=== PATIENT | female | born 1975 | race Two or more races ===

== ENCOUNTER → 2020-05-07 09:35 | Outpatient (BNVA) | payer OTHER, SELFPAY | PROVIDERS: PCP Internal Medicine; Referring Provider Internal Medicine; Visit Provider Internal Medicine Endocrinology, Diabetes & Metabolism | DX: E11.65 Type 2 diabetes mellitus with hyperglycemia (principal); I10 Essential (primary) hypertension; E78.5 Hyperlipidemia, unspecified; E66.01 Morbid (severe) obesity due to excess calories; E55.9 Vitamin D deficiency, unspecified; Z79.4 Long term (current) use of insulin; Z68.41 Body mass index [BMI] 40.0-44.9, adult | CPT/HCPCS: 82947; 99214 ==

== ENCOUNTER → 2020-07-30 13:17 | Outpatient (BNVA) | payer OTHER, SELFPAY | PROVIDERS: PCP Internal Medicine; Visit Provider Surgery Vascular Surgery | DX: I83.12 Varicose veins of left lower extremity with inflammation (principal); E11.65 Type 2 diabetes mellitus with hyperglycemia; I10 Essential (primary) hypertension; E78.5 Hyperlipidemia, unspecified; E66.01 Morbid (severe) obesity due to excess calories; Z68.41 Body mass index [BMI] 40.0-44.9, adult; Z79.4 Long term (current) use of insulin | CPT/HCPCS: 99202 ==

== ENCOUNTER 2020-09-09 12:32 | Outpatient (REF) | payer OTHER, SELFPAY ==
--- NOTE | ~2020-09-09 | US_ITS ---
EXAMINATION: RIGHT and LEFT LOWER EXTREMITY VENOUS ULTRASOUND (Reflux Exam) CLINICAL INDICATION: leg pain and varicose veins. COMPARISON: None. TECHNIQUE: Color flow triplex imaging and compression Doppler was performed to evaluate both the deep and the superficial systems bilaterally. To evaluate the superficial system, the examination was performed in the upright position. Color-flow Doppler ultrasound and compression ultrasound were utilized. In addition, maneuvers were utilized to demonstrate reflux. FINDINGS: 1. DEEP VENOUS ULTRASOUND OF THE RIGHT LOWER EXTREMITY: Respiratory variation, normal compression and augmented flow are noted in the right common femoral vein as well as the right popliteal vein and there is no evidence of deep venous thrombosis at these locations. There is no evidence of reflux in the deep system in either the common femoral vein or the popliteal vein. There is no evidence of a Alexandre's cyst. 2. SUPERFICIAL ULTRASOUND WITH DOPPLER OF RIGHT LOWER EXTREMITY: The right great saphenous vein at the saphenofemoral junction measures 10 mm, at the mid thigh 5 mm, kfmxy-fsh-bkym 3 mm, txzii-[id number]-[id number] 4 mm, at mid calf 2 mm and at the ankle measures 4 mm. There is no reflux demonstrated in the right great saphenous vein. The right small saphenous vein measures 2-3 mm. There is a 1.1 seconds reflux in the lesser saphenous vein at the saphenofemoral popliteal junction. There is a b2b sales professional in the right calf that measures 3 mm and demonstrates 2.2 seconds reflux. There are 2 additional perforators in the right calf that measure 2 mm and do not demonstrate reflux. There are varicosities in the thigh measuring 3 and 6 mm and in the proximal calf measuring 3 mm that do not demonstrate reflux. 3. DEEP VENOUS ULTRASOUND OF THE LEFT LOWER EXTREMITY: Respiratory variation, normal compression and augmented flow are noted in the left common femoral vein as well as the left popliteal vein and there is no evidence of deep venous thrombosis at these locations. There is no evidence of reflux in the deep system in either the common femoral vein or the popliteal vein. . There is no evidence of a Alexandre's cyst. 4. SUPERFICIAL ULTRASOUND WITH DOPPLER OF LEFT LOWER EXTREMITY: Left great saphenous vein at the saphenofemoral junction measures 8 mm, at the mid thigh 4 mm, ngzjt-ira-ntpj 3 mm, lwrjp-mcc-rvao 3 mm, at mid calf 2 mm and at the ankle measures 2 mm. There is no reflux demonstrated in the left great saphenous vein. There is a lateral accessory greater saphenous vein that measures 4 mm and does not demonstrate reflux. The left small saphenous vein measures 1-3 mm and shows no reflux. There are perforators that measure 4 mm in the mid thigh and 3 and 2 mm in the proximal and mid calf that do not demonstrate reflux. There are varicosities in the thigh that measure 3 and 4 mm and do not demonstrate reflux. US/US venous duplex LE BI IMPRESSION: 1. No evidence of reflux or thrombus in the common femoral veins or popliteal veins bilaterally. 2. No greater saphenous vein reflux. Right lesser saphenous vein reflux at the saphenofemoral popliteal junction. Reflux in a b2b sales professional in the right proximal calf.
== END 2020-09-09 12:33 | disposition home or self-care (01) ==
LOC: HO.US 12:32
PROVIDERS: PCP Internal Medicine; Visit Provider Surgery Vascular Surgery
DX: I83.12 Varicose veins of left lower extremity with inflammation (principal); I83.893 Varicose veins of bilateral lower extremities with other complications
CPT/HCPCS: 93970

== ENCOUNTER → 2020-09-26 13:05 | Outpatient (BNVA) | payer OTHER, SELFPAY | PROVIDERS: PCP Internal Medicine; Visit Provider Surgery Vascular Surgery | DX: I83.12 Varicose veins of left lower extremity with inflammation (principal); I89.0 Lymphedema, not elsewhere classified | CPT/HCPCS: 99212 ==

== ENCOUNTER 2021-02-12 09:06 | Outpatient (REF) | payer OTHER, SELFPAY ==
[2021-02-12 09:36] LABS: MANUAL DIFF FLAG NO
[2021-02-12 09:40] LABS: Basophils Absolute Auto 0.1 X10*3/uL (0.0-0.2); Basophils Percent Auto 0.8 % (0-2); Eosinophils Absolute Auto 0.1 X10*3/uL (0.0-0.4); Eosinophils Percent Auto 1.2 % (0-4); Hematocrit 39.8 % (37-47); Hemoglobin 13.2 g/dl (12.0-16.0); Imm Gran Abs Auto 0.04 X10*3/uL (0.00-0.03); Imm Gran Pct Auto 0.5 % (0.0-0.4); Lymphocytes Absolute Auto 2.8 X10*3/uL (1.2-4.9); Lymphocytes Percent Auto 31.7 % (20-40); Mean Corpuscular HGB Conc 33.2 g/dl (31.0-35.0); Mean Corpuscular Hemoglobin 29.2 pg (27.0-33.0); Mean Corpuscular Volume 88.1 fL (80-98); Mean Platelet Volume 10.9 fL (9.4-12.3); Monocytes Absolute Auto 0.5 X10*3/uL (0.1-1.2); Monocytes Percent Auto 5.9 % (2-11); Neutrophils Absolute Auto 5.3 X10*3/uL (2.0-8.3); Neutrophils Percent Auto 59.9 % (45-73); Platelet Count 236 X10*3/uL (160-400); Red Blood Count 4.52 X10*6/uL (4.20-5.50); Red Cell Distribution Width 13.1 % (11.0-16.0); White Blood Count 8.8 X10*3/uL (4.8-10.8)
[2021-02-12 10:17] LABS: Carbon Dioxide 22 mmol/L (22-29); Chloride 107 mmol/L (96-108); Potassium 4.2 mmol/L (3.3-5.1); Sodium 137 mmol/L (135-145)
[2021-02-12 10:18] LABS: Alanine Aminotransferase 9 U/L (0-31); Albumin Level 4.1 g/dL (3.5-5.0); Alkaline Phosphatase 76 U/L (39-117); Anion Gap 12 (12-20); Aspartate Amino Transferase 10 U/L (5-31); Bilirubin Total 0.5 mg/dL (0.0-1.0); Blood Urea Nitrogen 13 mg/dL (9-16); Cholesterol 156 mg/dL; Estimated Glomerular Filt Rate > 60; Glucose Fasting 303 mg/dL (60-99); HDL Cholesterol 31 mg/dL; LDL Cholesterol Calculated 63 mg/dl; Total Protein 7.2 g/dL (6.5-8.0); Triglycerides 310 mg/dL
[2021-02-12 11:21] LABS: Creatinine Urine 57.02 mg/dL; Microalbumin Urine < 5.0 mg/L
[2021-02-16 13:40] LABS: Vitamin D 25-OH, D2 <4 ng/mL; Vitamin D 25-OH, D3 33 ng/mL; Vitamin D 25-OH, Total 33 ng/mL (30-100)
== END 2021-02-12 09:07 | disposition home or self-care (01) ==
LOC: HO.LAB 09:06
PROVIDERS: PCP Internal Medicine; Visit Provider Internal Medicine
DX: E11.65 Type 2 diabetes mellitus with hyperglycemia (principal); E66.01 Morbid (severe) obesity due to excess calories; E55.9 Vitamin D deficiency, unspecified; E78.5 Hyperlipidemia, unspecified
CPT/HCPCS: 36415; 80053; 80061; 82043; 82306; 85025

== ENCOUNTER 2021-12-01 12:52 | Outpatient (REF) | payer OTHER, SELFPAY ==
--- NOTE | ~2021-12-01 | XR_ITS ---
EXAMINATION: XR HIP, RIGHT CLINICAL INFORMATION: Chronic right hip pain COMPARISON: None TECHNIQUE: Two views of the right hip. FINDINGS: No acute fracture or dislocation. Femoral head is spherical. Small acetabular and femoral collar marginal osteophytes. Soft tissues unremarkable. XR/XR hip RT min 2V IMPRESSION: No acute findings. Right hip marginal osteophytes. Otherwise unremarkable exam.
== END 2021-12-01 12:53 | disposition home or self-care (01) ==
LOC: HO.XRAY 12:52
PROVIDERS: PCP Internal Medicine; Visit Provider Internal Medicine
DX: M79.18 Myalgia, other site (principal); M25.551 Pain in right hip
CPT/HCPCS: 73502; 99212

== ENCOUNTER 2022-04-15 12:40 | Outpatient (REF) | payer OTHER, SELFPAY ==
--- NOTE | ~2022-04-15 | MM_ITS ---
EXAMINATION: MM SCREENING DIGITAL BREAST TOMOSYNTHESIS, BILATERAL CLINICAL INFORMATION: Screening. Asymptomatic. Family history breast cancer, mother age 58. The lifetime risk of breast cancer based on the Tyrer-Cuzick Model is 18%. COMPARISON: Mammography: 07/21/2017, 03/02/2016 (baseline) TECHNIQUE: Digital breast tomosynthesis is performed in both the craniocaudal and mediolateral oblique views along with computer-aided detection (CAD). Synthesized 2D images are generated from the tomosynthesis. Additional left cleavage view is provided. FINDINGS: There are scattered areas of fibroglandular density (ACR BI-RADS breast composition Category b). There are no significant masses, abnormal calcifications, or other abnormalities. Background stromal markings are stable. The axilla and skin contours are unremarkable. There are no significant changes. MM/MM tomosynthesis screening BI IMPRESSION: No mammographic evidence of malignancy. ASSESSMENT: BI-RADS 1: Negative RECOMMENDATION: Routine annual mammography screening. This patient's information was entered into a reminder system with a target due date for their next mammogram.
== END 2022-04-15 12:41 | disposition home or self-care (01) ==
LOC: HO.MAMMO 12:40
PROVIDERS: Visit Provider Internal Medicine
DX: Z12.31 Encounter for screening mammogram for malignant neoplasm of breast (principal)
CPT/HCPCS: 77063; 77067

== ENCOUNTER 2022-12-15 09:17 | Outpatient (REF) | payer OTHER, SELFPAY ==
[2022-12-15 10:43] LABS: Creatinine Urine 78.01 mg/dL; Microalbum/Creatinine Ratio Ur 16.6 ug/mg cr
[2022-12-15 10:49] LABS: Alanine Aminotransferase 21 U/L (0-31); Albumin Level 4.2 g/dL (3.5-5.0); Alkaline Phosphatase 76 U/L (39-117); Anion Gap 13 (12-20); Aspartate Amino Transferase 18 U/L (5-31); Bilirubin Total 0.7 mg/dL (0.0-1.0); Blood Urea Nitrogen 16 mg/dL (9-16); Calcium 9.5 mg/dL (8.4-10.2); Carbon Dioxide 23 mmol/L (22-29); Chloride 107 mmol/L (96-108); Cholesterol 179 mg/dL; Estimated Glomerular Filt Rate > 60; Glucose Fasting 269 mg/dL (60-99); HDL Cholesterol 35 mg/dL; LDL Cholesterol Calculated 82 mg/dl; Potassium 4.2 mmol/L (3.3-5.1); Sodium 139 mmol/L (135-145); Total Protein 7.3 g/dL (6.5-8.0); Triglycerides 314 mg/dL
== END 2022-12-15 09:18 | disposition home or self-care (01) ==
LOC: HO.LAB 09:17
PROVIDERS: PCP Internal Medicine; Visit Provider Internal Medicine
DX: E11.65 Type 2 diabetes mellitus with hyperglycemia (principal); E55.9 Vitamin D deficiency, unspecified; E78.5 Hyperlipidemia, unspecified
CPT/HCPCS: 36415; 80053; 80061; 82043; 82306

== ENCOUNTER → 2022-12-25 10:56 | Outpatient (BNVA) | payer OTHER, SELFPAY | PROVIDERS: PCP Internal Medicine; Visit Provider Internal Medicine | DX: M47.816 Spondylosis without myelopathy or radiculopathy, lumbar region (principal) | CPT/HCPCS: 99212 ==

== ENCOUNTER 2023-02-22 11:06 | Outpatient (REF) | payer OTHER, SELFPAY ==
[2023-02-23 06:00] LABS: CT PCR NOT DETECTED (Not Detect.); NG PCR NOT DETECTED (Not Detect.)
[2023-02-23 12:06] LABS: BV Int Neg Control Negative (Negative); BV Int Pos Control Positive (Positive)
[2023-02-27 09:44] LABS: HPV mRNA E6/E7 rflx Not Detected (Not Detected)
== END 2023-02-22 11:07 | disposition home or self-care (01) ==
LOC: HO.LNP 11:06
PROVIDERS: PCP Internal Medicine; Visit Provider Advanced Practice Midwife
DX: Z01.419 Encounter for gynecological examination (general) (routine) without abnormal findings (principal); E66.01 Morbid (severe) obesity due to excess calories; E11.65 Type 2 diabetes mellitus with hyperglycemia; I10 Essential (primary) hypertension; R06.00 Dyspnea, unspecified; Z79.4 Long term (current) use of insulin; Z79.899 Other long term (current) drug therapy
CPT/HCPCS: 0353U; 87480; 87510; 87624; 87660; 88142

== ENCOUNTER 2023-02-22 11:06 | Outpatient (AMB) | payer OTHER, SELFPAY ==
--- NOTE | 2023-02-22 11:30 | MHC.OFFVIS ---
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: No Information Interpreted: non-clinical & clinical Data Typist: Data Typist Present (Tam) Allergies dulaglutide [Trulicity] Adverse Reaction (Intermediate, Verified 02/22/23 11:33) nausea,vomiting,diarrhea Medication List - Last Reconciled 02/22/23 by Randa Ibarra CNM amlodipine 10 mg PO DAILY 90 days aspirin 81 mg PO DAILY 90 days atorvastatin 20 mg PO DAILY 30 days betamethasone dipropionate 0.05% 1 appl topical DAILY PRN 2 weeks blood sugar diagnostic (OneTouch Ultra Test strips) Use 1 test strip three times a day blood-glucose meter (Nexalin TechnologyTouch Ultra2 Meter) As directed cholecalciferol (vitamin D3) 50 mcg PO DAILY 90 days FreeStyle Lite Strips (blood sugar diagnostic) 4 times a day NS hydralazine 10 mg PO TID 90 days ibuprofen 800 mg PO TID insulin glargine (Lantus Solostar U-100 Insulin) 65 units (0.65 mL) subcut QAM 90 days insulin regular hum U-500 conc (Humulin R U-500 (Conc) Insulin Kwikpen) 65 units before breakfast and 85 units before dinner subcut .Twice a day; 30 days lancets Use 1 lancet three times a day lisinopril 40 mg PO DAILY metoprolol tartrate 25 mg PO BID 90 days omeprazole 20 mg PO DAILY 90 days pen needle, diabetic (1st Tier Unifine Pentips) As directed pen needle, diabetic (BD Shakila 2nd Gen Pen Needle) Twice a day sitagliptin phos-metformin 50-1,000 mg ER 2 tabs PO BEDTIME 90 days topiramate 50 mg PO BEDTIME 90 days Is last menstrual period known: Yes Last menstrual period: 02/09/23 Post menopausal: No Patient : No 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 She has an appointment with a new scalemaker to her this Wednesday. She keeps trying to do the best for her health but it is very hard she has high blood pressure but she says it is always high when she goes to the doctor's office. She cannot lie flat because she can not breathe she also does not like coming to medical appointments she has been on insulin a long time and she gets some very bad bruises in her abdomen firm where the insulin injections are given. she is and not worried about STDs but is open to testing her is 58 years old and is disabled because he had a heart attack some years ago he also has diabetes. 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 They do not have family around here. [facility] Medical History Diabetes type 2, uncontrolled (Unknown) Dyslipidemia STAN (generalized anxiety disorder) GERD (gastroesophageal reflux disease) Hypertension [facility] (current) use of insulin Migraine headache Mild recurrent major depression Morbid obesity Right leg pain Venous insufficiency of left lower extremity Vitamin D deficiency Surgical History Hx of arthroscopy of left knee Hx of section Hx of cholecystectomy Hx of tubal ligation Family History (Updated 02/22/23 @ 11:37 by SMA Gisel) Father COPD (chronic obstructive pulmonary disease) Mother Breast cancer Social History Housing: Apartment Alcohol intake: never Patient Tobacco Use Status: Never used Tobacco e-Cigarette/Vaping Use: Never Used Second Hand Smoke Exposure: No service: No Current occupational status: employed Current occupational exposures/hazards: No Cognitive needs: No Hearing needs: No Vision needs: No Female Reproductive History Menstrual Age of Menarche: 11 Duration of menses: 6-7 days Date of last menstrual period: 02/09/23 control method: other (tubal ligation) Total pregnancies: 5 Number of Living Children: 4 Ab spontaneous: 1 Date of last pap smear: 11/27/14 Date of Mammogram: 03/26/22 Physical Exam Vital Signs: Last Vital Signs BP 130/68 02/22/23 11:31 BMI result Body Mass Index 36.2 Const Other: could not tolerate being even in a semi recumbent position for the pelvic exam head of bed was elevated and she could not move down completely on the bed because of becoming dyspneic when she was at less of an incline. General: healthy appearing, comfortable, well developed and alert Nutritional Appearance: obese and other ( marked central obesity as well as around neck.) Orientation/consciousness: patient oriented x3 Limitations: no limitations HEENT Head: Yes normocephalic Neck Neck: Yes normal visual inspection Chest Chest palpation & inspection: normal inspection of the chest Breast/axilla inspection: normal inspection of the breasts and normal inspection of the axillae Breast/axilla palpation: normal palpation of the breasts and normal palpation of the axillae Resp Effort & Inspection: normal respiratory effort GI Inspection: Yes normal to inspection, No Abdominal wall edema and No distended Palpation (GI): Soft to palpation and nontender Other: challenging because of patient has difficulty moving down lower in the exam table secondary to dyspnea when approaching 45 degree angle. patient denies sleep apnea. some uterine and vaginal wall descensus noted patient was able to do a good Kegel. And I urged her to do them as many times a day as she could.. General: Yes bladder normal to palpation External Female Exam: normal external appearance and normal appearance of the urethra Speculum Exam - Vagina: normal appearance of the vagina and other Speculum Exam - Cervix: normal appearance of the cervix and Other cervical findings present (limited views) Bimanual exam- vagina & uterus: bladder normal to palpation and other (uterus difficult to assess 2' habitus) Bimanual Exam- Adnexa, other: Other (palpation of adnexae limited 2' habitus) Neuro General: patient oriented x3 Assessment & Plan Assessment & Plan (1) Screening for cervical cancer: Comment: Exam and Pap done 02/22/2023. Code(s): Z12.4 - Encounter for screening for malignant neoplasm of cervix (2) Morbid obesity: Code(s): E66.01 - Morbid (severe) obesity due to excess calories (3) Diabetes type 2, uncontrolled: Onset Date: Unknown Code(s): E11.65 - Type 2 diabetes mellitus with hyperglycemia Qualifiers: Glycemic state: with hyperglycemia Qualified Code(s): E11.65 - Type 2 diabetes mellitus with hyperglycemia (4) [facility] (current) use of insulin: Code(s): Z79.4 - [facility] (current) use of insulin (5) Hypertension: Code(s): I10 - Essential (primary) hypertension Qualifiers: Hypertension type: essential hypertension Qualified Code(s): I10 - Essential (primary) hypertension (6) Dyspnea: Comment: in semi fowlers Code(s): R06.00 - Dyspnea, unspecified Plan -----Discussed in this visit the following: healthy balanced diet, regular and consistent exercise, getting recommended health screens, doing the best she can for her particular health concerns, kegel exercises, pap smear screening and followup recommendations, mammography screening and SBE, normal changes in cycles in her life stage--- .Discussed in general terms the challenges of obesity and challenges for her health and efforts she is engaging in to manage this including dietary changes water intake attention to sleep inclusion of a regular exercise have it and dealing with the may need stressors of life that can contribute to obesity in general. Encouraged her to continue in all have her best efforts. discussed her long-term efforts and the challenges that her obesity the diabetes hypertension and all of the other complications that she is beginning to see some evidence of are affecting her life. Discussed that all of it is related to weight loss and that that does become harder as 1 gets older and is admittedly a very challenging problem and difficult to tackle when 1 has the economic and work challenges and child rearing responsibilities that she has discussed also that her health is also important and I offered to place and weight management referral if it had not already been placed and I did give her the brochure in [place]ian so that she may call herself. She has an appointment with endocrinology this Wednesday and I wished her luck with that and all of her continued efforts to trying get healthier. 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 She is up-to-date on mammograms having had 1 just 6 months ago she says. 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
[2023-02-22 11:31] VITALS: BP 130/68; BMI 36.2
== END 2023-02-22 12:45 | disposition home or self-care (01) ==
LOC: HO.HWS 11:06
PROVIDERS: PCP Internal Medicine; Visit Provider Advanced Practice Midwife
DX: Z01.419 Encounter for gynecological examination (general) (routine) without abnormal findings (principal); E66.01 Morbid (severe) obesity due to excess calories; E11.65 Type 2 diabetes mellitus with hyperglycemia; Z79.4 Long term (current) use of insulin; I10 Essential (primary) hypertension; R06.00 Dyspnea, unspecified
CPT/HCPCS: 99386

== ENCOUNTER 2023-02-26 09:05 | Outpatient (AMB) | payer OTHER, SELFPAY ==
--- NOTE | 2023-02-26 09:07 | A.OFFVIS_ITS ---
Intake Vital Signs 02/26/23 09:12 Height 5 ft 8 in Weight 285 lb 15.033 oz BMI 43.5 BP 142/84 H Blood Pressure Location Rt radial Position Sitting Pulse 77 Pulse Source Pulse Oximeter Intake Visit Reasons: DM2 Intake Note: New patient present today for Diabetes Mellitus. Previously managed by PCP. Last Diabetic Eye exam: 1 year ago Last Podiatry Visit: Does not see a Crewman [employer] Random Glucose: 296 mg/dl HgA1C: 11.3% 12/08/2022 Delivery Route Driver Required: No Accompanied by: Self / Same As Patient Allergies dulaglutide [Trulicity] Adverse Reaction (Intermediate, Verified 02/26/23 09:12) nausea,vomiting,diarrhea Medication List - Last Reconciled 02/26/23 by Nikolas Calero MD amlodipine 10 mg PO DAILY 90 days aspirin 81 mg PO DAILY 90 days atorvastatin 20 mg PO DAILY 30 days betamethasone dipropionate 0.05% 1 appl topical DAILY PRN 2 weeks blood sugar diagnostic (GHEN MATERIALSTouch Ultra Test strips) Use 1 test strip three times a day blood-glucose meter (Greenpieuch Ultra2 Meter) As directed cholecalciferol (vitamin D3) 50 mcg PO DAILY 90 days flash glucose scanning reader (FreeStyle Holley 2 [place]) As directed flash glucose sensor (FreeStyle Holley 2 Sensor kit) As directed hydralazine 10 mg PO TID 90 days ibuprofen 800 mg PO TID insulin regular hum U-500 conc (Humulin R U-500 (Conc) Insulin Kwikpen) 65 units before breakfast and 85 units before dinner subcut .Twice a day; 30 days lancets Use 1 lancet three times a day lisinopril 40 mg PO DAILY metformin ER 1,000 mg PO BID metoprolol tartrate 25 mg PO BID 90 days pen needle, diabetic (1st Tier Unifine Pentips) As directed pen needle, diabetic (BD Shakila 2nd Gen Pen Needle) Twice a day semaglutide (Ozempic) 0.5 mg (0.736 mL) subcut QWEEK topiramate 50 mg PO BEDTIME 90 days HPI HPI Comments History of Present Illness Details 47-year-old female, today for follow-up, she was last seen on for Uncontrolled diabetes by Dr. Matos . Unfortunately, patient not bring meter or log book to follow-up appointment before She is currently on Humulin U 500 65 units breakfast and 85 units before dinner. She is also on Janumet XR 2 tablets 100/1000 mg with dinner. She has DM type 2 diagnosed 13 years ago , PCP is DR Ledesma . She was on Metformin before had diarrhea on it, tried Afrezza, did not tolerated. Complications: no retinopathy, + nephropathy, had + microalbumin in 2013 now resolved, no neuropathy, CVA, CAD, PVD. Last ophthalmology evaluation: , no need for last yr photocoagulation or VEGF therapy. Denies nocturia, polyuria, polydipsia, blurred vision, denies numbness or tingling's Laboratory Tests 05/09/18 01/25/20 01/25/20 09:55 13:34 14:00 Hgb Hct Sodium Potassium Creatinine Est GFR (Non-Af Am er) Random Glucose Fasting Glucose 160 H Hgb A1c Fingerstic k 7.8 Calcium AST ALT Alkaline Phosphata se Albumin Triglycerides Cholesterol LDL Cholesterol Di rect LDL Cholesterol, C alc HDL Cholesterol Vitamin B12 25-OH Vitamin D To hector Ur Random Creatini ne 77.68 Ur Random Microalb umin 12.0 Microalb/Creat Rat io 15.4 01/25/20 01/25/20 01/25/20 14:00 14:00 14:00 Hgb 13.3 Hct 40.3 Sodium 140 Potassium 4.3 Creatinine 0.77 Est GFR (Non-Af Am er) > 60 Random Glucose 229 H Fasting Glucose Hgb A1c Fingerstic k Calcium 9.6 AST 11 ALT 13 Alkaline Phosphata se 82 D Albumin 4.5 Triglycerides 367 D Cholesterol 158 LDL Cholesterol Di rect LDL Cholesterol, C alc 49 HDL Cholesterol 36 Vitamin B12 312 25-OH Vitamin D To hector 34.3 Ur Random Creatini ne Ur Random Microalb umin Microalb/Creat Rat io 01/25/20 14:00 Hgb Hct Sodium Potassium Creatinine Est GFR (Non-Af Am er) Random Glucose Fasting Glucose Hgb A1c Fingerstic k Calcium AST ALT Alkaline Phosphata se Albumin Triglycerides Cholesterol LDL Cholesterol Di rect 69 LDL Cholesterol, C alc HDL Cholesterol Vitamin B12 25-OH Vitamin D To hector Ur Random Creatini ne Ur Random Microalb umin Microalb/Creat Rat io . [facility] Medical History Diabetes type 2, uncontrolled (Unknown) Dyslipidemia STAN (generalized anxiety disorder) GERD (gastroesophageal reflux disease) 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 Migraine headache Mild recurrent major depression Morbid obesity Right leg pain Venous insufficiency of left lower extremity Vitamin D deficiency Surgical History Hx of arthroscopy of left knee Hx of section Hx of cholecystectomy Hx of tubal ligation Family History (Updated 02/22/23 @ 11:37 by SMA Gisel) Father COPD (chronic obstructive pulmonary disease) Mother Breast cancer Social History Housing: Apartment Alcohol intake: never Patient Tobacco Use Status: Never used Tobacco e-Cigarette/Vaping Use: Never Used Second Hand Smoke Exposure: No service: No Current occupational status: employed Current occupational exposures/hazards: No Cognitive needs: No Hearing needs: No Vision needs: No Female Reproductive History Menstrual Age of Menarche: 11 Physical Exam Absence of Cushingoid features. Absence of acromegalic features. Neck exam reveals nl size thyroid about 15 gms. No thyroid nodules palpable. No carotid bruits present. Lungs CTA. Heart S1 S2, Reg R/R. No M/R/ G. Skin exam reveals absence of vitiligo or acanthosis nigricans. Abdominal exam reveals Soft NT/ND with NA BS. No organomegaly present. Neck Other: . Extrem Other: Visual exam of foot performed. No ulcerations or open lesions. No onchomycosis, no callouses.Pulses 2 + distally Sensation intact to monofilament exam. Vibratory sensation sensed is intact with 128 Hz tuning fork Assessment & Plan Assessment & Plan (1) Diabetes type 2, uncontrolled: Onset Date: Unknown Code(s): E11.65 - Type 2 diabetes mellitus with hyperglycemia Qualifiers: Glycemic state: with hyperglycemia Qualified Code(s): E11.65 - Type 2 diabetes mellitus with hyperglycemia Plan: This is a 47-year-old female with history of type 2 diabetes being treated with U-500 insulin and Januvia and metformin with poor glycemic control and known microvascular complications namely retinopathy. Plan is to have the patient check her point cares pre and post meals. Will attempt to prescribe her Holley 2. Will have her bring her glucometer and or sensor to follow-up appointments. Will also switch Janumet to metformin extended release 1000 mg b.i.d. and start Ozempic 0.25 mg Q weekly and titrate as tolerated. Went over side effects of Ozempic including but not limited to nausea, vomiting risk of pancreatitis. Will have patient see patient educator and cephalometric analyst. . Went over relationship poor glycemic control to development and progression complication Orders: Referrals Diabetes Education Referral E11.65 - Type 2 diabetes mellitus with hyperglycemia Nutrition/Dietitian Referral E11.65 - Type 2 diabetes mellitus with hyperglycemia Medications: New metformin ER 1,000 mg PO BID 60 tabs 5RF semaglutide (Ozempic) for 4 weeks 0.25 mg (0.368 mL) subcut QWEEK 3 mL 5RF flash glucose sensor (FreeStyle Holley 2 Sensor kit) As directed 2 ea 5RF flash glucose scanning reader (FreeStyle Holley 2 [place]) As directed 1 ea 0RF semaglutide (Ozempic) for 4 weeks 0.5 mg (0.736 mL) subcut QWEEK 3 mL 5RF Discontinued sitagliptin phos-metformin 50-1,000 mg ER Discontinued Reason: Doctor's Order 2 tabs PO BEDTIME 180 tabs 3RF 90 days insulin glargine (Lantus Solostar U-100 Insulin) Discontinued Reason: Doctor's Order 65 units (0.65 mL) subcut QAM 58.5 mL 3RF 90 days E11.65 - Type 2 diabetes mellitus with hyperglycemia, 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
[2023-02-26 09:12] VITALS: BP 142/84; PULSE 77; BMI 43.5
[2023-02-26 09:21] LABS: Glucose, Whole Blood 296 mg/dL (60-115)
== END 2023-02-26 09:48 | disposition home or self-care (01) ==
PROVIDERS: PCP Internal Medicine; Visit Provider Internal Medicine Endocrinology, Diabetes & Metabolism
DX: E11.65 Type 2 diabetes mellitus with hyperglycemia (principal)
CPT/HCPCS: 99214

== ENCOUNTER → 2023-02-26 09:05 | Outpatient (BNVA) | payer OTHER, SELFPAY | PROVIDERS: Visit Provider Internal Medicine Endocrinology, Diabetes & Metabolism | DX: E11.65 Type 2 diabetes mellitus with hyperglycemia (principal); Z79.4 Long term (current) use of insulin; Z79.85 Long-term (current) use of injectable non-insulin antidiabetic drugs | CPT/HCPCS: 82947; 99212 ==

== ENCOUNTER 2023-03-25 09:53 | Outpatient (AMB) | payer OTHER, SELFPAY ==
--- NOTE | 2023-03-25 10:17 | MHC.OFFVIS ---
Intake Vital Signs 03/25/23 10:25 Height 5 ft 8 in Weight 283 lb BMI 43.0 BP 135/73 Blood Pressure Location Lt brachial Position Sitting Pulse 80 Intake Visit Reasons: Colonoscopy Screening Intake Note: Patient 1st pre colonoscopy screening. Patient denies any GI issues. Protective Signal Operator Required: No Accompanied by: Spouse Allergies dulaglutide [Trulicity] Adverse Reaction (Intermediate, Verified 03/25/23 10:25) nausea,vomiting,diarrhea Medication List - Last Reconciled 03/25/23 by Narcisa Pizarro PA-C amlodipine 10 mg PO DAILY 90 days aspirin 81 mg PO DAILY 90 days atorvastatin 20 mg PO DAILY 30 days betamethasone dipropionate 0.05% 1 appl topical DAILY PRN 2 weeks blood sugar diagnostic (Bitzer MobileTouch Ultra Test strips) Use 1 test strip three times a day blood-glucose meter (Bitzer MobileTouch Ultra2 Meter) As directed cholecalciferol (vitamin D3) 50 mcg PO DAILY 90 days flash glucose scanning reader (BitWallStyle Holley 2 [place]) As directed flash glucose sensor (FreeStyle Holley 2 Sensor kit) As directed hydralazine 10 mg PO TID 90 days ibuprofen 800 mg PO TID insulin regular hum U-500 conc (Humulin R U-500 (Conc) Insulin Kwikpen) 65 units before breakfast and 85 units before dinner subcut .Twice a day; 30 days lancets Use 1 lancet three times a day lisinopril 40 mg PO DAILY metformin ER 1,000 mg PO BID metoprolol tartrate 25 mg PO BID 90 days pen needle, diabetic (1st Tier Unifine Pentips) As directed pen needle, diabetic (BD Shakila 2nd Gen Pen Needle) Twice a day semaglutide (Ozempic) 0.5 mg (0.736 mL) subcut QWEEK topiramate 50 mg PO BEDTIME 90 days HPI HPI Comments History of Present Illness Details A 47-year-old female referred for index screening colonoscopy- No GI complaints-her accompanies Normal bowels -appetite is good- No respiratory or cardiac issues No family history of GI cancer She is diabetic she takes insulin however she is awaiting to be approved for metformin No nausea, vomiting, abdominal pain, hematemesis, hematochezia fever or chills PFSH Medical History Diabetes type 2, uncontrolled (Unknown) Dyslipidemia STAN (generalized anxiety disorder) GERD (gastroesophageal reflux disease) Hypertension 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 Migraine headache Mild recurrent major depression Morbid obesity Right leg pain Venous insufficiency of left lower extremity Vitamin D deficiency Surgical History Hx of tubal ligation Hx of section Hx of arthroscopy of left knee Hx of cholecystectomy Family History Father COPD (chronic obstructive pulmonary disease) Mother Breast cancer Social History Housing: Apartment Alcohol intake: never Patient Tobacco Use Status: Never used Tobacco e-Cigarette/Vaping Use: Never Used Second Hand Smoke Exposure: No service: No Current occupational status: employed Current occupational exposures/hazards: No Cognitive needs: No Hearing needs: No Vision needs: No Female Reproductive History Menstrual Age of Menarche: 11 Review of Systems Const All systems reviewed & are unremarkable except as noted in HPI and below Card Denies chest pain and Denies dyspnea Resp Denies dyspnea GI Denies abdominal pain, Denies change in bowel habits and Denies heartburn Physical Exam Vital Signs: Last Vital Signs Pulse 80 03/25/23 10:25 BP 135/73 03/25/23 10:25 BMI result Body Mass Index 43.0 Const General: cooperative, healthy appearing, comfortable and no acute distress Orientation/consciousness: patient oriented x3 Limitations: no limitations Eyes Sclerae: sclerae normal Resp Effort & Inspection: normal respiratory effort and able to speak in complete sentences Auscultation: clear to auscultation bilaterally, no rales, no rhonchi and no wheezes Cardio Rate: regular rate Rhythm: regular rhythm Heart sounds: S1 normal heart sound present and S2 normal heart sound present GI Palpation (GI): Soft to palpation and nontender Auscultation: normal bowel sounds Skin General skin exam: no rashes or lesions noted Neuro General: patient oriented x3 Extrem General: Yes full ROM Psych Appearance: grossly normal and well kempt Mental Status: mental status grossly normal Speech and movement: Normal speech and movement present Affect: Labile affect present Attitude: cooperative Thought process: Normal thought process present Thought content: Normal thought content present Assessment & Plan Assessment & Plan (1) Encounter for screening colonoscopy: Code(s): Z12.11 - Encounter for screening for malignant neoplasm of colon Plan: Index screening colonoscopy MiraLax Gatorade split prep-literature given Orders: Orders Colonoscopy - GI Use Only Today Z12.11 - Encounter for screening for malignant neoplasm of colon Medications: New bisacodyl (Dulcolax (bisacodyl)) Take 4 tablets by mouth at 12:00pm the day before your procedure. 20 mg (4 x 5 mg) PO ONCE 1 day 4 tabs 0RF colonoscopy prep Z12.11 - Encounter for screening for malignant neoplasm of colon polyethylene glycol 3350 (Miralax) Take as directed by mouth the day before your procedure. 238 grams PO ONCE 1 day PRN 238 grams 0RF laxative effect Patient Instructions: 47-year-old female DM , referred for index screening colonoscopy Discussed procedure, rare risk, need for escorted, MiraLax Gatorade split prep. Discussed medication she will omit metformin , as well half dose of insulin evening before colonoscopy. She will take no diabetes medication morning of procedure. No major barriers to understanding were identified Encouraged to call with questions or concerns Appreciate the opportunity assist in care the patient Coding Level of Care Code New Pt Level 3 (76994) Diagnoses Encounter for screening colonoscopy Z12.11 Time Spent (min) 30
[2023-03-25 10:25] VITALS: BP 135/73; PULSE 80; BMI 43.0
== END 2023-03-25 16:38 | disposition home or self-care (01) ==
PROVIDERS: PCP Internal Medicine; Visit Provider Physician Assistant
DX: Z12.11 Encounter for screening for malignant neoplasm of colon (principal); Z01.818 Encounter for other preprocedural examination
CPT/HCPCS: 99203

== ENCOUNTER → 2023-03-25 09:53 | Outpatient (BNVA) | payer OTHER, SELFPAY | PROVIDERS: PCP Internal Medicine; Visit Provider Physician Assistant | DX: Z12.11 Encounter for screening for malignant neoplasm of colon (principal) | CPT/HCPCS: 99202 ==

== ENCOUNTER 2023-04-28 09:54 | Outpatient (AMB) | payer OTHER, SELFPAY ==
[2023-04-28 10:08] VITALS: BMI 43.8
--- NOTE | 2023-04-28 10:08 | MHC.AMNUTRGE ---
Intake VS Expanded 04/28/23 10:08 04/28/23 10:19 Height 5 ft 8 in 5 ft 8 in Weight 288 lb 5.834 oz 288 lb BMI 43.8 43.8 Intake Visit Reasons: DM Allergies dulaglutide [Trulicity] Adverse Reaction (Intermediate, Verified 03/25/23 10:25) nausea,vomiting,diarrhea HPI Nutrition Presentation Details Pt presents for MNT for T2DM Pt reports not monitoring BG related to freestyle bib not adhering or getting dislodged. Needs review on its application. Pt reports not having glucometer or test strips to monitor bg -reports ins not covering one touch glucometer rx in file. Meal pattern B: 2 boiled egg and 2 slices avocado and 1 slice of bread , coffee with splenda L: may skip or eat out or has rice/soto/meal or sandwhich , water or reg soda D: spaghetti with meat sauce, water snack: crackers, or bread physical activity: daily life activities ETOH/SMoking: denies food frequency fruit: 0-1/d dairy: 2-3 serving/d vegetables: 0-1/d protein foods: seafood/ham/eggs, beef 4-6 oz 3-4 x/d starches: > 20 serving/d fluids: water, reg soda, coffee , soups 32 oz/day WQD-Uycmcgo-Oo.Jeor Equation Height 5 ft 8 in Weight 288 lb Resting Metabolic Rate 1982.46 Calculated Activity Level Sedentary Calories Needed to Maintain Weight 2378.95 Diagnosis Nutrition problem #1 food nutri know defi As related to (etiology) #1 diagnosis As evidenced by (sign/symptom) #1 knowledge deficit of diet Monitoring/Goals Nutrition problem monitoring HgbA1c and total CHO intake Nutrition goal/outcome list 3 CHO foods and list 3 high fiber foods Learning/Education Readiness to learn good Stages of change pre-contemplation Educational materials provided Yes (meal planning, reduction of carbs) Most Recent Diabetes Results: Microalb/Creat Ratio 16.6 ug/mg cr 12/15/22 Cholesterol 179 mg/dL 12/15/22 HDL Cholesterol 35 mg/dL 12/15/22 Triglycerides 314 mg/dL 12/15/22 Creatinine 0.76 mg/dL (0.5-1.4) 12/15/22 Blood Urea Nitrogen 16 mg/dL (9-16) 12/15/22 Sodium 139 mmol/L (135-145) 12/15/22 Potassium 4.2 mmol/L (3.3-5.1) 12/15/22 Chloride 107 mmol/L (96-108) 12/15/22 Carbon Dioxide 23 mmol/L (22-29) 12/15/22 Calcium 9.5 mg/dL (8.4-10.2) 12/15/22 AST 18 U/L (5-31) 12/15/22 ALT 21 U/L (0-31) 12/15/22 Total Protein 7.3 g/dL (6.5-8.0) 12/15/22 Albumin 4.2 g/dL (3.5-5.0) 12/15/22 [facility] Medical History Diabetes type 2, uncontrolled (Unknown) Dyslipidemia STAN (generalized anxiety disorder) GERD (gastroesophageal reflux disease) 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 Migraine headache Mild recurrent major depression Morbid obesity Right leg pain Venous insufficiency of left lower extremity Vitamin D deficiency Surgical History Hx of tubal ligation Hx of section Hx of arthroscopy of left knee Hx of cholecystectomy Family History Father COPD (chronic obstructive pulmonary disease) Mother Breast cancer Social History Housing: Apartment Alcohol intake: never Patient Tobacco Use Status: Never used Tobacco e-Cigarette/Vaping Use: Never Used Second Hand Smoke Exposure: No service: No Current occupational status: employed Current occupational exposures/hazards: No Cognitive needs: No Hearing needs: No Vision needs: No Female Reproductive History Menstrual Age of Menarche: 11 Assessment & Plan Assessment & Plan (1) Diabetes type 2, uncontrolled: Onset Date: Unknown Code(s): E11.65 - Type 2 diabetes mellitus with hyperglycemia Qualifiers: Glycemic state: with hyperglycemia Qualified Code(s): E11.65 - Type 2 diabetes mellitus with hyperglycemia Plan: wt: 131 kg Est kcal needs as per MSJ: 2400 (40% carb, 30% protein/fat) Est fluid needs as per 30 ml/d: 4000 Est prot per day as per 1 g/kg bw: 131 Recommend fiber intake : 8-10 g per day and gradually increase to 25-28 g per day for women and 35-38 g for men or as tolerated Recommend sodium intake per day : less than 2000 mg Educated patient on: ( R = reviewed V = verbalizes understanding N/R = needs review N/A = not applicable Food sources of carbohydrate, adequate serving sizes and its role in various health conditions: R Differences between complex carbohydrates a simple carbohydrates, role of fiber in diet: R role of hydration: r Differences between types of fats and role in diet (mono on saturated fat fatty acids, saturated fatty acids, trans fats): NR Food sources of sodium in salt and healthy modifications for heart health in kidney health: NR Vitamins and minerals: NR Healthy plate method concept: R Physical activity: Benefits a precaution: R Hypoglycemia protocol (rule of 15): NR Dietary prevention of Hyperglycemia: R [employer] application resources : R Patient Instructions: have a meal replacement at lunch follow healthy plate method at diner, reducing total carb to 60 g become familiar with food sources of carbohydrates f/u topic: fiber rich foods Coding Level of Care Code Nutr Indiv Intake (31410) Diagnoses Uncontrolled type 2 diabetes mellitus with hyperglycemia E11.65 Glycemic state: with hyperglycemia Time Spent (min) 30
[2023-04-28 10:19] VITALS: BMI 43.8
== END 2023-04-28 10:37 | disposition home or self-care (01) ==
PROVIDERS: PCP Internal Medicine; Visit Provider Dietitian, Registered
DX: E11.65 Type 2 diabetes mellitus with hyperglycemia (principal)

== ENCOUNTER → 2023-04-28 09:54 | Outpatient (BNVA) | payer OTHER, SELFPAY | PROVIDERS: PCP Internal Medicine; Visit Provider Dietitian, Registered | DX: E11.65 Type 2 diabetes mellitus with hyperglycemia (principal) | CPT/HCPCS: 97802 ==

== ENCOUNTER 2023-06-03 10:01 | Outpatient (AMB) | payer OTHER, SELFPAY ==
--- NOTE | 2023-06-03 10:03 | MHC.OFFVIS ---
Intake Vital Signs 06/03/23 10:04 Height 5 ft 8 in Weight 287 lb 11.252 oz BMI 43.7 BP 132/82 Blood Pressure Location Lt brachial Position Sitting Pulse 79 Pulse Source Pulse Oximeter Intake Visit Reasons: DM2-CONFIRMED Intake Note: Patient presents today to follow up on Type 2 Diabetes Mellitus. Last Diabetic Eye exam: 2020 Last Podiatry Visit:None Random Glucose: 218 mg/dl HgA1C: 9.3% Clerk Operator Required: No Accompanied by: Self / Same As Patient Allergies dulaglutide [Trulicity] Adverse Reaction (Intermediate, Verified 06/03/23 10:18) nausea,vomiting,diarrhea Medication List - Last Reconciled 06/03/23 by Nikolas Calero MD amlodipine 10 mg PO DAILY 90 days aspirin 81 mg PO DAILY 90 days atorvastatin 20 mg PO DAILY 30 days betamethasone dipropionate 0.05% 1 appl topical DAILY PRN 2 weeks bisacodyl (Dulcolax (bisacodyl)) 20 mg (4 x 5 mg) PO ONCE 1 day blood sugar diagnostic (DecImmune TherapeuticsStyle Test strips) As directed test 4 times a day blood-glucose meter (FreeStyle [place] Lite kit) As directed cholecalciferol (vitamin D3) 50 mcg PO DAILY 90 days flash glucose scanning reader (DecImmune TherapeuticsStyle Holley 2 [place]) As directed flash glucose sensor (FreeStyle Holley 2 Sensor kit) As directed hydralazine 10 mg PO TID 90 days ibuprofen 800 mg PO TID insulin regular hum U-500 conc (Humulin R U-500 (Conc) Insulin Kwikpen) 65 units before breakfast and 85 units before dinner subcut .Twice a day; 30 days lancets Use 1 lancet three times a day lancets (FreeStyle Lancets) As directed test 4 times a day lisinopril 40 mg PO DAILY metformin ER 1,000 mg PO BID metoprolol tartrate 25 mg PO BID 90 days pen needle, diabetic (1st Tier Unifine Pentips) As directed pen needle, diabetic (BD Shakila 2nd Gen Pen Needle) Twice a day polyethylene glycol 3350 (Miralax) 238 grams PO ONCE PRN 1 day semaglutide (Ozempic) 0.5 mg (0.736 mL) subcut QWEEK topiramate 50 mg PO BEDTIME 90 days HPI HPI Comments History of Present Illness Details 47-year-old female, today for follow-up, Glucometer download shows she is checking her point cares once a day. Average glucose is 209 with range 152 to 75. 21% range with 79% hyperglycemia no hypoglycemic She is currently on Humulin U 500 65 units breakfast and 85 units before dinner. She is also on metformin XR 1000 mg BID, Ozempic 0.5 mg Qwkly She has DM type 2 diagnosed 13 years ago , PCP is DR Ledesma . She was on Metformin before had diarrhea on it, tried Afrezza, did not tolerated. Complications: no retinopathy, + nephropathy, had + microalbumin in 2013 now resolved, no neuropathy, CVA, CAD, PVD. Last ophthalmology evaluation: 2 yrs ago . Needs to make appt , no need for last yr photocoagulation or VEGF therapy. No hypoglycemia Denies nocturia, polyuria, polydipsia, blurred vision, denies numbness or tingling's Laboratory Tests 05/09/18 01/25/20 01/25/20 09:55 13:34 14:00 Hgb Hct Sodium Potassium Creatinine Est GFR (Non-Af Am er) Random Glucose Fasting Glucose 160 H Hgb A1c Fingerstic k 7.8 Calcium AST ALT Alkaline Phosphata se Albumin Triglycerides Cholesterol LDL Cholesterol Di rect LDL Cholesterol, C alc HDL Cholesterol Vitamin B12 25-OH Vitamin D To hector Ur Random Creatini ne 77.68 Ur Random Microalb umin 12.0 Microalb/Creat Rat io 15.4 01/25/20 01/25/20 01/25/20 14:00 14:00 14:00 Hgb 13.3 Hct 40.3 Sodium 140 Potassium 4.3 Creatinine 0.77 Est GFR (Non-Af Am er) > 60 Random Glucose 229 H Fasting Glucose Hgb A1c Fingerstic k Calcium 9.6 AST 11 ALT 13 Alkaline Phosphata se 82 D Albumin 4.5 Triglycerides 367 D Cholesterol 158 LDL Cholesterol Di rect LDL Cholesterol, C alc 49 HDL Cholesterol 36 Vitamin B12 312 25-OH Vitamin D To hector 34.3 Ur Random Creatini ne Ur Random Microalb umin Microalb/Creat Rat io 01/25/20 14:00 Hgb Hct Sodium Potassium Creatinine Est GFR (Non-Af Am er) Random Glucose Fasting Glucose Hgb A1c Fingerstic k Calcium AST ALT Alkaline Phosphata se Albumin Triglycerides Cholesterol LDL Cholesterol Di rect 69 LDL Cholesterol, C alc HDL Cholesterol Vitamin B12 25-OH Vitamin D To hector Ur Random Creatini ne Ur Random Microalb umin Microalb/Creat Rat io . 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 Migraine headache Mild recurrent major depression Morbid obesity Right leg pain Venous insufficiency of left lower extremity Vitamin D deficiency Surgical History Hx of tubal ligation Hx of section Hx of arthroscopy of left knee Hx of cholecystectomy Family History Father COPD (chronic obstructive pulmonary disease) Mother Breast cancer Social History Housing: Apartment Alcohol intake: never Patient Tobacco Use Status: Never used Tobacco e-Cigarette/Vaping Use: Never Used Second Hand Smoke Exposure: No service: No Current occupational status: employed Current occupational exposures/hazards: No Cognitive needs: No Hearing needs: No Vision needs: No Female Reproductive History Menstrual Age of Menarche: 11 Physical Exam Vital Signs: Last Vital Signs Pulse 79 06/03/23 10:04 BP 132/82 06/03/23 10:04 BMI result Body Mass Index 43.7 Absence of Cushingoid features. Absence of acromegalic features. Neck exam reveals nl size thyroid about 15 gms. No thyroid nodules palpable. No carotid bruits present. Lungs CTA. Heart S1 S2, Reg R/R. No M/R/ G. Skin exam reveals absence of vitiligo or acanthosis nigricans. Abdominal exam reveals Soft NT/ND with NA BS. No organomegaly present. Neck Other: . Extrem Other: Visual exam of foot performed. No ulcerations or open lesions. No onchomycosis, no callouses.Pulses 2 + distally Sensation intact to monofilament exam. Vibratory sensation sensed is intact with 128 Hz tuning fork Results Reviewed Results Reviewed: Laboratory Last Values Glucose (Clinic) 218 mg/dL (60-115) H 06/03/23 10:13 Assessment & Plan Assessment & Plan (1) Diabetes type 2, uncontrolled: Onset Date: Unknown Code(s): E11.65 - Type 2 diabetes mellitus with hyperglycemia Qualifiers: Glycemic state: with hyperglycemia Qualified Code(s): E11.65 - Type 2 diabetes mellitus with hyperglycemia Plan: This is a 47-year-old female with history of type 2 diabetes being treated with U-500 insulin and Januvia and metformin with poor glycemic control and known microvascular complications namely retinopathy. Plan is to have the patient check her point cares pre and post meals. Will re attempt to prescribe her Hollye 2. Will reinitiate Ozempic 0.5 mg Q weekly and metformin extended release 1000 mg b.i.d.. . Went over relationship poor glycemic control to development and progression complication. Have patient follow up with central office frame wirer Ozempic 0.25 mg samples given to patient lot number [id number] expiration date 08/18/2024 Medications: New metformin ER 1,000 mg PO BID 60 tabs 5RF Refilled semaglutide (Ozempic) for 4 weeks 0.5 mg (0.736 mL) subcut QWEEK 3 mL 5RF flash glucose scanning reader (FreeStyle Holley 2 [place]) As directed 1 ea 0RF flash glucose sensor (FreeStyle Holley 2 Sensor kit) As directed 2 ea 5RF Coding Level of Care Code Est Pt Level 4 (79606) Diagnoses Uncontrolled type 2 diabetes mellitus with hyperglycemia E11.65 Glycemic state: with hyperglycemia
[2023-06-03 10:04] VITALS: BP 132/82; PULSE 79; BMI 43.7
[2023-06-03 10:17] LABS: Glucose, Whole Blood 218 mg/dL (60-115)
== END 2023-06-03 10:43 | disposition home or self-care (01) ==
PROVIDERS: PCP Internal Medicine; Visit Provider Internal Medicine Endocrinology, Diabetes & Metabolism
DX: E11.65 Type 2 diabetes mellitus with hyperglycemia (principal)
CPT/HCPCS: 99214

== ENCOUNTER → 2023-06-03 10:01 | Outpatient (BNVA) | payer OTHER, SELFPAY | PROVIDERS: PCP Internal Medicine; Visit Provider Internal Medicine Endocrinology, Diabetes & Metabolism | DX: E11.65 Type 2 diabetes mellitus with hyperglycemia (principal) | CPT/HCPCS: 82947; 83036; 99212 ==

== ENCOUNTER 2023-06-15 12:29 | Outpatient (AMB) | payer OTHER, SELFPAY ==
--- NOTE | 2023-06-15 12:52 | A.OFFVIS_ITS ---
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 Metal Processing Worker Required: No Scrap Metal Processing Worker Name: Pt declined Accompanied by: Self / Same As Patient Allergies dulaglutide [Trulicity] Adverse Reaction (Intermediate, Verified 06/03/23 10:18) nausea,vomiting,diarrhea HPI Comprehensive Diabetes Asmnt Most Recent Diabetes Results: Microalb/Creat Ratio 16.6 ug/mg cr 12/15/22 Cholesterol 179 mg/dL 12/15/22 HDL Cholesterol 35 mg/dL 12/15/22 Triglycerides 314 mg/dL 12/15/22 Creatinine 0.76 mg/dL (0.5-1.4) 12/15/22 Blood Urea Nitrogen 16 mg/dL (9-16) 12/15/22 Sodium 139 mmol/L (135-145) 12/15/22 Potassium 4.2 mmol/L (3.3-5.1) 12/15/22 Chloride 107 mmol/L (96-108) 12/15/22 Carbon Dioxide 23 mmol/L (22-29) 12/15/22 Calcium 9.5 mg/dL (8.4-10.2) 12/15/22 AST 18 U/L (5-31) 12/15/22 ALT 21 U/L (0-31) 12/15/22 Total Protein 7.3 g/dL (6.5-8.0) 12/15/22 Albumin 4.2 g/dL (3.5-5.0) 12/15/22 [facility] Medical History Diabetes type 2, uncontrolled (Unknown) Dyslipidemia STAN (generalized anxiety disorder) GERD (gastroesophageal reflux disease) 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 Migraine headache Mild recurrent major depression Morbid obesity Right leg pain Venous insufficiency of left lower extremity Vitamin D deficiency Surgical History Hx of tubal ligation Hx of section Hx of arthroscopy of left knee Hx of cholecystectomy Family History Father COPD (chronic obstructive pulmonary disease) Mother Breast cancer Social History Housing: Apartment Alcohol intake: never Patient Tobacco Use Status: Never used Tobacco e-Cigarette/Vaping Use: Never Used Second Hand Smoke Exposure: No service: No Current occupational status: employed Current occupational exposures/hazards: No Cognitive needs: No Hearing needs: No Vision needs: No Female Reproductive History Menstrual Age of Menarche: 11 Assessment & Plan Assessment & Plan (1) Diabetes type 2, uncontrolled: Onset Date: Unknown Code(s): E11.65 - Type 2 diabetes mellitus with hyperglycemia Qualifiers: Glycemic state: with hyperglycemia Qualified Code(s): E11.65 - Type 2 diabetes mellitus with hyperglycemia Plan: Learning objectives: The patient was provided with verbal and written education on the following topics as outlined below. Assess patient education level/literacy/barriers Patient questions/concerns, patient reports she has had diabetes for approximately 15 years A1c in May 2023 9.3% Patient started Ozempic 0.25 mg weekly approximately 2 weeks ago, denies symptoms of nausea, vomiting Patient is also taking Humulin U 500 65 units in the a.m. 85 units p.m. She is prescribed metformin but has not been taking, plans to restart metformin when she picks it up from the pharmacy Instructed patient on the importance of scanning Holley sensor every 4-6 hours, patient did not bring meter to today's visit The patient met all learning objectives and was able to verbalize understanding and provide teach back of education topics discussed . The patient was provided with the opportunity to ask questions and all questions were answered. Topics covered in today?s session included: Medications (If applicable) * Name of medication? * Dosing/administration instructions? * Mechanism of action? * Potential side effects? * Potential adverse reaction and appropriate treatment? * Review onset, peak, duration Assess for concerns re: insurance coverage, cost, barriers to compliance Insulin/Injectables (If applicable) * Storage/care of insulin?? * Injection sites? * Site rotation? * Onset, peak, duration * Drawing up insulin? * Injecting insulin/other injectables? * Sharps disposal Continuous blood glucose monitoring (if applicable) Hypoglycemia and Hyperglycemia * Signs and symptoms? * Causes?? * Treatment? * Preventing hypoglycemia? * When to seek medical attention * Blood glucose targets and how you feel when your blood glucose is in and out of your target ranges. * Monitoring and knowing your A1C. * What can make blood glucose go up and down and preventing high and low blood glucose. * Review of blood sugar targets in expected goal range and outside of expected goal range. * Problem solving and preventing hyper/hypoglycemia. * Sick day management of diabetes. * Using blood sugar results in decision making process in managing diabetes. ?Patient was receptive to information provided and participated in the discussion. Asked?appropriate questions and demonstrated good understanding of the topics discussed.? ? Educational Materials: The patient was provided with the following written educational materials: Target Goal, How to treat Low glucose handout Comprehension of Instructions: fair Readiness to make changes:? Contemplation How confident they feel about making changes: Fair Medications: Discontinued metformin ER Discontinued Reason: Doctor's Order 1,000 mg PO BID 60 tabs 5RF Patient Instructions: Treat low glucose with rule Coding Level of Care Code Est Pt Level 1 (51014) Diagnoses Uncontrolled type 2 diabetes mellitus with hyperglycemia E11.65 Glycemic state: with hyperglycemia
== END 2023-06-15 12:56 | disposition home or self-care (01) ==
PROVIDERS: PCP Internal Medicine; Visit Provider Registered Nurse Diabetes Educator
DX: E11.65 Type 2 diabetes mellitus with hyperglycemia (principal)

== ENCOUNTER → 2023-06-15 12:29 | Outpatient (BNVA) | payer OTHER, SELFPAY | PROVIDERS: PCP Internal Medicine; Visit Provider Registered Nurse Diabetes Educator | DX: E11.65 Type 2 diabetes mellitus with hyperglycemia (principal) | CPT/HCPCS: 99211 ==

== ENCOUNTER 2023-10-14 12:15 | Outpatient (AMB) | payer OTHER, SELFPAY ==
--- NOTE | 2023-10-14 12:52 | MHC.AMDMED ---
Intake Intake Visit Reasons: 60 min-confirmed Payment Manager Required: No Accompanied by: Self / Same As Patient Allergies dulaglutide [Trulicity] Adverse Reaction (Intermediate, Verified 06/03/23 10:18) nausea,vomiting,diarrhea HPI Comprehensive Diabetes Asmnt Most Recent Diabetes Results: Microalb/Creat Ratio 16.6 ug/mg cr 12/15/22 Cholesterol 179 mg/dL 12/15/22 HDL Cholesterol 35 mg/dL 12/15/22 Triglycerides 314 mg/dL 12/15/22 Creatinine 0.76 mg/dL (0.5-1.4) 12/15/22 Blood Urea Nitrogen 16 mg/dL (9-16) 12/15/22 Sodium 139 mmol/L (135-145) 12/15/22 Potassium 4.2 mmol/L (3.3-5.1) 12/15/22 Chloride 107 mmol/L (96-108) 12/15/22 Carbon Dioxide 23 mmol/L (22-29) 12/15/22 Calcium 9.5 mg/dL (8.4-10.2) 12/15/22 AST 18 U/L (5-31) 12/15/22 ALT 21 U/L (0-31) 12/15/22 Total Protein 7.3 g/dL (6.5-8.0) 12/15/22 Albumin 4.2 g/dL (3.5-5.0) 12/15/22 [facility] Medical History Diabetes type 2, uncontrolled (Unknown) Dyslipidemia STAN (generalized anxiety disorder) GERD (gastroesophageal reflux disease) Hypertension halfway (current) use of insulin Migraine headache Mild recurrent major depression Morbid obesity Right leg pain Venous insufficiency of left lower extremity Vitamin D deficiency Surgical History Hx of tubal ligation Hx of section Hx of arthroscopy of left knee Hx of cholecystectomy Family History Father COPD (chronic obstructive pulmonary disease) Mother Breast cancer Social History Housing: Apartment Alcohol intake: never Patient Tobacco Use Status: Never used Tobacco e-Cigarette/Vaping Use: Never Used Second Hand Smoke Exposure: No service: No Current occupational status: employed Current occupational exposures/hazards: No Cognitive needs: No Hearing needs: No Vision needs: No Female Reproductive History Menstrual Age of Menarche: 11 Assessment & Plan Assessment & Plan (1) Diabetes type 2, uncontrolled: Onset Date: Unknown Code(s): E11.65 - Type 2 diabetes mellitus with hyperglycemia Qualifiers: Glycemic state: with hyperglycemia Qualified Code(s): E11.65 - Type 2 diabetes mellitus with hyperglycemia Plan: Patient at visit to set up an insert Dexcom G7 Patient given Dexcom G7 sample sensor, patient reports she was using freestyle Holley but had adhesion problems. So she has just been using blood glucose meter checking fasting numbers Fastings range from 145-207 mg/dL Patient is currently taking Humulin U 500 65 units in the a.m., 80 units p.m. Metformin 1000 mg b.i.d. Patient denies any hypoglycemia events Patient also has approval for Ozempic in her chart, reports that she was given sample sensor at her last visit with Dr. Calero but was never able to pick it up at the pharmacy. Message sent to Dr. Calero to see if he would like to restart Ozempic 0.25 mg Patient has appointment with Dr. Calero on 10/20/2023, instructed patient to let Dr. Calero know at that visit if she would like to submit order for Dexcom G7 Instructed patient sensors water proof you can shower, or swim do not submerge sensor in water for over 30 minutes Is sensor falls off cannot put back in you need to replace sensor, customer service number given to patient for sensor replacement Sensor placed on the back of left arm Patient left visit with sensor in warmup Reviewed how to interpret trend arrows Reminded patient that to check finger sticks if symptoms do not match sensor reading. Discussed lag time between finger stick and sensor data.? Instructed patient she should always keep blood glucometer for backup testing if needed Reviewed delay of CGM from fingersticks Reminded pt that if symptoms do not match sensor still needs to check fingersticks. Patient instructed to follow-up with community nutrition educator in 5 weeks Patient Instructions: Instrucciones para el paciente: CGM proporciona informaci?n sobre el control de la glucosa en boone a lo ron del d?a, incluidas la hiperglucemia y la hipoglucemia. Contin?e controlando la glucosa en bo[place] seg?n las instrucciones. Siga las pautas de nutrici?n proporcionadas. Informe cualquier molestia de inmediato al proveedor de atenci?n m?dica. Mantente angélica hidratado. Puede ba?arse, ducharse, nadar y hacer ejercicio mientras usa el sensor de glucosa. No sumerja el sensor de glucosa en agua tee m?s de 30 minutos. Retire el sensor para jennifer resonancia magn?sol o jennifer tomograf?a computarizada. Evite la m?quina de michaela X en los aeropuertos: retire el sensor o solicite la varita Coding Level of Care Code Est Pt Level 1 (45363) Diagnoses Uncontrolled type 2 diabetes mellitus with hyperglycemia E11.65 Glycemic state: with hyperglycemia
== END 2023-10-14 12:54 | disposition home or self-care (01) ==
PROVIDERS: PCP Internal Medicine; Visit Provider Registered Nurse Diabetes Educator
DX: E11.65 Type 2 diabetes mellitus with hyperglycemia (principal)

== ENCOUNTER → 2023-10-14 12:15 | Outpatient (BNVA) | payer OTHER, SELFPAY | PROVIDERS: PCP Internal Medicine; Visit Provider Registered Nurse Diabetes Educator | DX: E11.65 Type 2 diabetes mellitus with hyperglycemia (principal); Z79.4 Long term (current) use of insulin | CPT/HCPCS: 99211 ==

== ENCOUNTER 2023-10-18 09:04 | Outpatient (REF) | payer OTHER, SELFPAY ==
[2023-10-18 10:17] LABS: Anion Gap 11 (12-20); Blood Urea Nitrogen 18 mg/dL (9-16); Calcium 8.8 mg/dL (8.4-10.2); Carbon Dioxide 25 mmol/L (22-29); Chloride 108 mmol/L (96-108); Cholesterol 169 mg/dL (<200); Estimated Glomerular Filt Rate > 60; Glucose Random 192 mg/dL (60-115); HDL Cholesterol 47 mg/dL (>40); LDL Cholesterol Calculated 84 mg/dL (<100); Potassium 3.7 mmol/L (3.3-5.1); Sodium 140 mmol/L (135-145); Triglycerides 193 mg/dL (<150)
[2023-10-18 10:30] LABS: Creatinine Urine 193.31 mg/dL; Microalbum/Creatinine Ratio Ur 56.9 ug/mg cr (<30)
== END 2023-10-18 09:05 | disposition home or self-care (01) ==
LOC: HO.LAB 09:04
PROVIDERS: PCP Internal Medicine; Visit Provider Internal Medicine Endocrinology, Diabetes & Metabolism
DX: E11.65 Type 2 diabetes mellitus with hyperglycemia (principal)
CPT/HCPCS: 36415; 80048; 80061; 82043; 82570

== ENCOUNTER 2023-10-20 10:21 | Outpatient (AMB) | payer OTHER, SELFPAY ==
[2023-10-20 10:23] VITALS: BP 116/72; PULSE 84; BMI 43.4
--- NOTE | 2023-10-20 10:23 | MHC.OFFVIS ---
Intake Vital Signs 10/20/23 10:23 Height 5 ft 8 in Weight 285 lb 7.978 oz BMI 43.4 BP 116/72 Blood Pressure Location Lt brachial Position Sitting Pulse 84 Pulse Source Pulse Oximeter Intake Visit Reasons: T2DM Intake Note: Patient presents today to follow up on D2MT. 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 Required: No Accompanied by: Self / Same As Patient Allergies dulaglutide [Trulicity] Adverse Reaction (Intermediate, Verified 10/20/23 10:27) nausea,vomiting,diarrhea Medication List - Last Reconciled 10/20/23 by Nikolas Calero MD amlodipine 10 mg PO DAILY 90 days aspirin 81 mg PO DAILY 90 days atorvastatin 20 mg PO DAILY 30 days betamethasone dipropionate 0.05% 1 appl topical DAILY PRN 2 weeks bisacodyl (Dulcolax (bisacodyl)) 20 mg (4 x 5 mg) PO ONCE 1 day blood sugar diagnostic (FreeStyle Lite Strips) DIRECTED TEST 4 TIMES A DAY *INSURANCE ONLY ALLOW 100 FOR 30 DAYS* blood-glucose meter (FreeStyle [place] Lite kit) As directed cholecalciferol (vitamin D3) 50 mcg PO DAILY 90 days flash glucose scanning reader (FreeStyle Holley 2 [employer]) As directed flash glucose sensor (FreeStyle Holley 2 Sensor kit) As directed hydralazine 10 mg PO TID 90 days ibuprofen 800 mg PO TID insulin regular hum U-500 conc (Humulin R U-500 (Conc) Insulin Kwikpen) 65 units before breakfast and 85 units before dinner subcut .Twice a day; 30 days lancets Use 1 lancet three times a day lancets (FreeStyle Lancets) As directed test 4 times a day lisinopril 40 mg PO DAILY metformin 1,000 mg PO BID metoprolol tartrate 25 mg PO BID 90 days pen needle, diabetic (1st Tier Unifine Pentips) As directed pen needle, diabetic (BD Shakila 2nd Gen Pen Needle) Twice a day polyethylene glycol 3350 (Miralax) 238 grams PO ONCE PRN 1 day semaglutide (Ozempic) 0.25 mg (0.368 mL) subcut QWEEK topiramate 50 mg PO BEDTIME 90 days HPI HPI Comments History of Present Illness Details 48-year-old female, today for follow-up, Glucometer download shows she is checking her point cares once a day. Average glucose is 209 with range 146 to 328. 39% range with 61% hyperglycemia no hypoglycemic She is currently on Humulin U 500 65 units breakfast and 80 units before dinner. She is also on metformin XR 1000 mg BID, Ozempic 0.5 mg Qwkly not taking She has DM type 2 diagnosed 13 years ago , PCP is DR Ledesma . She was on Metformin before had diarrhea on it, tried Afrezza, did not tolerated. Complications: no retinopathy, + nephropathy, had + microalbumin in 2013 now resolved, no neuropathy, CVA, CAD, PVD. Last ophthalmology evaluation: 2 yrs ago . Needs to make appt , no need for last yr photocoagulation or VEGF therapy. No hypoglycemia Denies nocturia, polyuria, polydipsia, blurred vision, denies numbness or tingling's Laboratory Tests 05/09/18 01/25/20 01/25/20 09:55 13:34 14:00 Hgb Hct Sodium Potassium Creatinine Est GFR (Non-Af Am er) Random Glucose Fasting Glucose 160 H Hgb A1c Fingerstic k 7.8 Calcium AST ALT Alkaline Phosphata se Albumin Triglycerides Cholesterol LDL Cholesterol Di rect LDL Cholesterol, C alc HDL Cholesterol Vitamin B12 25-OH Vitamin D To hector Ur Random Creatini ne 77.68 Ur Random Microalb umin 12.0 Microalb/Creat Rat io 15.4 01/25/20 01/25/20 01/25/20 14:00 14:00 14:00 Hgb 13.3 Hct 40.3 Sodium 140 Potassium 4.3 Creatinine 0.77 Est GFR (Non-Af Am er) > 60 Random Glucose 229 H Fasting Glucose Hgb A1c Fingerstic k Calcium 9.6 AST 11 ALT 13 Alkaline Phosphata se 82 D Albumin 4.5 Triglycerides 367 D Cholesterol 158 LDL Cholesterol Di rect LDL Cholesterol, C alc 49 HDL Cholesterol 36 Vitamin B12 312 25-OH Vitamin D To hector 34.3 Ur Random Creatini ne Ur Random Microalb umin Microalb/Creat Rat io 01/25/20 14:00 Hgb Hct Sodium Potassium Creatinine Est GFR (Non-Af Am er) Random Glucose Fasting Glucose Hgb A1c Fingerstic k Calcium AST ALT Alkaline Phosphata se Albumin Triglycerides Cholesterol LDL Cholesterol Di rect 69 LDL Cholesterol, C alc HDL Cholesterol Vitamin B12 25-OH Vitamin D To hector Ur Random Creatini ne Ur Random Microalb umin Microalb/Creat Rat io . PFSH Medical History Diabetes type 2, uncontrolled (Unknown) Dyslipidemia STAN (generalized anxiety disorder) GERD (gastroesophageal reflux disease) Hypertension assisted (current) use of insulin Migraine headache Mild recurrent major depression Morbid obesity Right leg pain Venous insufficiency of left lower extremity Vitamin D deficiency Surgical History Hx of tubal ligation Hx of section Hx of arthroscopy of left knee Hx of cholecystectomy Family History Father COPD (chronic obstructive pulmonary disease) Mother Breast cancer Social History Housing: Apartment Alcohol intake: never Patient Tobacco Use Status: Never used Tobacco e-Cigarette/Vaping Use: Never Used Second Hand Smoke Exposure: No service: No Current occupational status: employed Current occupational exposures/hazards: No Cognitive needs: No Hearing needs: No Vision needs: No Female Reproductive History Menstrual Age of Menarche: 11 Physical Exam Vital Signs: Last Vital Signs Pulse 84 10/20/23 10:23 BP 116/72 10/20/23 10:23 BMI result Body Mass Index 43.4 Absence of Cushingoid features. Absence of acromegalic features. Neck exam reveals nl size thyroid about 15 gms. No thyroid nodules palpable. No carotid bruits present. Lungs CTA. Heart S1 S2, Reg R/R. No M/R/ G. Skin exam reveals absence of vitiligo or acanthosis nigricans. Abdominal exam reveals Soft NT/ND with NA BS. No organomegaly present. Neck Other: . Extrem Other: Visual exam of foot performed. No ulcerations or open lesions. No onchomycosis, no callouses.Pulses 2 + distally Sensation intact to monofilament exam. Vibratory sensation sensed is intact with 128 Hz tuning fork Results AMB Hemoglobin A1c AMB Hemoglobin A1c 10.2 % Last Edit by CRISTOBAL Guerra on 10/20/23 10:52 Results Reviewed Results Reviewed: Laboratory Last Values Glucose (Clinic) 259 mg/dL (60-115) H 10/20/23 10:29 Assessment & Plan Assessment & Plan (1) Diabetes type 2, uncontrolled: Onset Date: Unknown Code(s): E11.65 - Type 2 diabetes mellitus with hyperglycemia Qualifiers: Glycemic state: with hyperglycemia Qualified Code(s): E11.65 - Type 2 diabetes mellitus with hyperglycemia Plan: This is a 48-year-old female with history of type 2 diabetes being treated with U-500 insulin and metformin with poor glycemic control and known microvascular complications namely retinopathy. Plan is to have the patient check her point cares pre and post meals. Will re attempt to prescribe her a Dexcom G7 . Also told patient to start the Ozempic . Went over relationship poor glycemic control to development and progression complication. Have patient follow up with clinical trial educator Orders: Orders AMB Hemoglobin A1c Today E11.65 - Type 2 diabetes mellitus with hyperglycemia, Z13.9 - Encounter for screening, unspecified Medications: New blood-glucose sensor (Dexcom G7 Sensor device) As directed change every 10 days 3 ea 5RF blood-glucose meter,continuous (Dexcom G7 Tobacco Drying Machine Operator) As directed 1 ea 0RF Refilled insulin regular hum U-500 conc (Humulin R U-500 (Conc) Insulin Kwikpen) 65 units before breakfast and 85 units before dinner subcut .Twice a day; 30 days 12 mL 5RF E11.65 - Type 2 diabetes mellitus with hyperglycemia Coding Level of Care Code Est Pt Level 4 (72889) Diagnoses Uncontrolled type 2 diabetes mellitus with hyperglycemia E11.65 Glycemic state: with hyperglycemia
[2023-10-20 10:33] LABS: Glucose, Whole Blood 259 mg/dL (60-115)
== END 2023-10-20 10:51 | disposition home or self-care (01) ==
PROVIDERS: PCP Internal Medicine; Visit Provider Internal Medicine Endocrinology, Diabetes & Metabolism
DX: Z13.9 Encounter for screening, unspecified (principal); E11.65 Type 2 diabetes mellitus with hyperglycemia
CPT/HCPCS: 99214

== ENCOUNTER → 2023-10-20 10:21 | Outpatient (BNVA) | payer OTHER, SELFPAY | PROVIDERS: PCP Internal Medicine; Visit Provider Internal Medicine Endocrinology, Diabetes & Metabolism | DX: E11.65 Type 2 diabetes mellitus with hyperglycemia (principal); Z79.4 Long term (current) use of insulin; Z79.84 Long term (current) use of oral hypoglycemic drugs; Z79.899 Other long term (current) drug therapy | CPT/HCPCS: 82947; 83036; 99212 ==

== ENCOUNTER 2023-11-30 09:48 | Outpatient (AMB) | payer OTHER, SELFPAY ==
--- NOTE | 2023-11-30 10:02 | MHC.AMDMED ---
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 Accompanied by: Self / Same As Patient Allergies dulaglutide [Trulicity] Adverse Reaction (Intermediate, Verified 10/20/23 10:27) nausea,vomiting,diarrhea HPI Comprehensive Diabetes Asmnt Most Recent Diabetes Results: Microalb/Creat Ratio 56.9 ug/mg cr (<30) H 10/18/23 Cholesterol 169 mg/dL (<200) 10/18/23 HDL Cholesterol 47 mg/dL (>40) 10/18/23 Triglycerides 193 mg/dL (<150) H 10/18/23 Creatinine 0.64 mg/dL (0.5-1.4) 10/18/23 Blood Urea Nitrogen 18 mg/dL (9-16) H 10/18/23 Sodium 140 mmol/L (135-145) 10/18/23 Potassium 3.7 mmol/L (3.3-5.1) 10/18/23 Chloride 108 mmol/L (96-108) 10/18/23 Carbon Dioxide 25 mmol/L (22-29) 10/18/23 Calcium 8.8 mg/dL (8.4-10.2) 10/18/23 AST 18 U/L (5-31) 12/15/22 ALT 21 U/L (0-31) 12/15/22 Total Protein 7.3 g/dL (6.5-8.0) 12/15/22 Albumin 4.2 g/dL (3.5-5.0) 12/15/22 PFSH Medical History Diabetes type 2, uncontrolled (Unknown) Dyslipidemia STAN (generalized anxiety disorder) GERD (gastroesophageal reflux disease) Hypertension long-term (current) use of insulin Migraine headache Mild recurrent major depression Morbid obesity Right leg pain Venous insufficiency of left lower extremity Vitamin D deficiency Surgical History Hx of tubal ligation Hx of section Hx of arthroscopy of left knee Hx of cholecystectomy Family History Father COPD (chronic obstructive pulmonary disease) Mother Breast cancer Social History Housing: Apartment Alcohol intake: never Patient Tobacco Use Status: Never used Tobacco e-Cigarette/Vaping Use: Never Used Second Hand Smoke Exposure: No service: No Current occupational status: employed Current occupational exposures/hazards: No Cognitive needs: No Hearing needs: No Vision needs: No Female Reproductive History Menstrual Age of Menarche: 11 Assessment & Plan Assessment & Plan (1) Diabetes type 2, uncontrolled: Onset Date: Unknown Code(s): E11.65 - Type 2 diabetes mellitus with hyperglycemia Qualifiers: Glycemic state: with hyperglycemia Qualified Code(s): E11.65 - Type 2 diabetes mellitus with hyperglycemia Plan: Patient at visit to set up an insert Dexcom G7 Instructed patient sensors water proof you can shower, or swim do not submerge sensor in water for over 30 minutes Is sensor falls off cannot put back in you need to replace sensor, customer service number given to patient for sensor replacement Sensor placed on the back of left arm Patient left visit with sensor in warmup Reviewed how to interpret trend arrows Reminded patient that to check finger sticks if symptoms do not match sensor reading. Discussed lag time between finger stick and sensor data.? Instructed patient she should always keep blood glucometer for backup testing if needed Reviewed delay of CGM from fingersticks Reminded pt that if symptoms do not match sensor still needs to check fingersticks. Patient's current fasting blood sugars range between 157 to 283 mg/dL, for the last 7 days Patient reports she has started Mounjaro 2.5 mg She frequently skips metformin, due to diarrhea. Suggested to patient she discuss symptoms with provider at next visit, to see if there is an alternative. Humulin U 500 -65 units before breakfast, 85 units before supper Patient denies any hypoglycemic events, patient does report decreased appetite, and believes she is losing some weight Reviewed with patient the risk of hypoglycemia, with weight change and if we increase Mounjaro at next visit. Reviewed with patient how to use rule of 15s to treat hypoglycemia, patient reports she will use fruit juice to treat hypoglycemia Patient will follow-up with die turner in 1 month I Patient Instructions: Instrucciones para el paciente: CGM proporciona informaci?n sobre el control de la glucosa en bo[place] a lo ron del d?a, incluidas la hiperglucemia y la hipoglucemia. Contin?e controlando la glucosa en [place] seg?n las instrucciones. Siga las pautas de nutrici?n proporcionadas. Informe cualquier molestia de inmediato al proveedor de atenci?n m?dica. Mantente angélica hidratado. Puede ba?arse, ducharse, nadar y hacer ejercicio mientras usa el sensor de glucosa. No sumerja el sensor de glucosa en agua tee m?s de 30 minutos. Retire el sensor para jennifer resonancia magn?sol o jennifer tomograf?a computarizada. Evite la m?quina de michaela X en los aeropuertos: retire el sensor o solicite la varita Coding Level of Care Code Est Pt Level 1 (05334) Diagnoses Uncontrolled type 2 diabetes mellitus with hyperglycemia E11.65 Glycemic state: with hyperglycemia
== END 2023-11-30 10:21 | disposition home or self-care (01) ==
PROVIDERS: PCP Internal Medicine; Visit Provider Registered Nurse Diabetes Educator
DX: E11.65 Type 2 diabetes mellitus with hyperglycemia (principal)

== ENCOUNTER → 2023-11-30 09:48 | Outpatient (BNVA) | payer OTHER, SELFPAY | PROVIDERS: PCP Internal Medicine; Visit Provider Registered Nurse Diabetes Educator | DX: E11.65 Type 2 diabetes mellitus with hyperglycemia (principal) | CPT/HCPCS: 99211 ==

== ENCOUNTER 2024-02-17 13:18 | Outpatient (AMB) | payer OTHER, SELFPAY ==
--- NOTE | 2024-02-17 13:27 | A.OFFVIS_ITS ---
Vital Signs 02/17/24 13:30 02/17/24 13:55 Height 5 ft 8 in Weight 295 lb 6.711 oz BMI 44.9 44.9 BP 126/70 Blood Pressure Location Rt brachial Position Sitting Pulse 88 Pulse Source Pulse Oximeter Intake Visit Reasons: T2DM/CONFIRMED Intake Note: Patient presents today to RE-establish treatment for Type 2 Diabetes Mellitus: Last Diabetic Eye exam: DUE Last Podiatry Exam: Does not see a Social Science Research Assistant Most recent HbA1c: 9.9%, 02/17/2024 Random Glucose- 236mg/dL, Today Construction Director Required: No Accompanied by: Self / Same As Patient Allergies dulaglutide [Trulicity] Adverse Reaction (Intermediate, Verified 02/17/24 13:28) nausea,vomiting,diarrhea PFSH Medical History Diabetes type 2, uncontrolled (Unknown) Dyslipidemia STAN (generalized anxiety disorder) GERD (gastroesophageal reflux disease) Hypertension snf (current) use of insulin Migraine headache Mild recurrent major depression Morbid obesity Right leg pain Venous insufficiency of left lower extremity Vitamin D deficiency Surgical History Hx of tubal ligation Hx of section Hx of arthroscopy of left knee Hx of cholecystectomy Family History Father COPD (chronic obstructive pulmonary disease) Mother Breast cancer Social History Housing: Apartment Alcohol intake: never Patient Tobacco Use Status: Never used Tobacco e-Cigarette/Vaping Use: Never Used Second Hand Smoke Exposure: No service: No Current occupational status: employed Current occupational exposures/hazards: No Cognitive needs: No Hearing needs: No Vision needs: No Female Reproductive History Menstrual Age of Menarche: 11 Physical Exam Vital Signs: Last Vital Signs Pulse 88 02/17/24 13:30 BP 126/70 02/17/24 13:30 BMI result Body Mass Index 44.9 Results AMB Hemoglobin A1c AMB Hemoglobin A1c 9.9 % Last Edit by CRISTOBAL Espinosa on 02/17/24 13:48 Results Reviewed Results Reviewed: Laboratory Last Values Glucose (Clinic) 236 mg/dL (60-115) H 02/17/24 13:38 Hgb A1c (Clinic) 9.9 % (4.0-6.0) H 02/17/24 13:28 Assessment & Plan Assessment & Plan Orders: Orders AMB Hemoglobin A1c 02/17/24 E11.9 - Type 2 diabetes mellitus without complications Medications: New blood-glucose sensor (FreeStyle Holley 3 Sensor device) As directed 2 ea 11RF E11.65 - Type 2 diabetes mellitus with hyperglycemia semaglutide (Ozempic) 1 mg (0.75 mL) subcut QWEEK 28 days 3 mL 11RF E11.65 - Type 2 diabetes mellitus with hyperglycemia metformin ER 1,000 mg PO DAILY 30 days 30 tabs 6RF Discontinued blood-glucose sensor (Dexcom G7 Sensor device) Discontinued Reason: Doctor's Order As directed change every 10 days 3 ea 5RF metformin Discontinued Reason: Doctor's Order 1,000 mg PO BID 180 tabs 1RF flash glucose scanning reader (FreeStyle Holley 2 [employer]) Discontinued Reason: Doctor's Order As directed 1 ea 0RF flash glucose sensor (FreeStyle Holley 2 Sensor kit) Discontinued Reason: Doctor's Order As directed 2 ea 5RF blood-glucose meter,continuous (Dexcom G7 Director Communications) Discontinued Reason: Doctor's Order As directed 1 ea 0RF Coding
[2024-02-17 13:30] VITALS: BP 126/70; PULSE 88; BMI 44.9
[2024-02-17 13:41] LABS: Glucose, Whole Blood 236 mg/dL (60-115)
--- NOTE | 2024-02-17 13:54 | A.OFFVIS_ITS ---
Vital Signs 02/17/24 13:30 02/17/24 13:55 Height 5 ft 8 in Weight 295 lb 6.711 oz BMI 44.9 44.9 BP 126/70 Blood Pressure Location Rt brachial Position Sitting Pulse 88 Pulse Source Pulse Oximeter Intake Visit Reasons: T2DM/CONFIRMED Allergies dulaglutide [Trulicity] Adverse Reaction (Intermediate, Verified 02/17/24 13:28) nausea,vomiting,diarrhea HPI Comments Details: 48-year-old female, today for follow-up, She is currently on Humulin U 500 65 units breakfast and 85 units before dinner. She is also on metformin 1000 mg which she takes just once daily due to intolerability, Ozempic 0.5 mg Qwkly she does not bring in her meter today in tests infrequently A1c in the office today 9.9% She has DM type 2 diagnosed 13 years ago , PCP is DR Ledesma . tried Afrezza, did not tolerated. Complications: retinopathy, + nephropathy, had + microalbumin in 2013 now resolved, no neuropathy, CVA, CAD, PVD. Last ophthalmology evaluation: 2 yrs ago . Needs to make appt , no need for last yr photocoagulation or VEGF therapy. 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 Migraine headache Mild recurrent major depression Morbid obesity Right leg pain Venous insufficiency of left lower extremity Vitamin D deficiency Surgical History Hx of tubal ligation Hx of section Hx of arthroscopy of left knee Hx of cholecystectomy Family History Father COPD (chronic obstructive pulmonary disease) Mother Breast cancer Social History Housing: Apartment Alcohol intake: never Patient Tobacco Use Status: Never used Tobacco e-Cigarette/Vaping Use: Never Used Second Hand Smoke Exposure: No service: No Current occupational status: employed Current occupational exposures/hazards: No Cognitive needs: No Hearing needs: No Vision needs: No Female Reproductive History Menstrual Age of Menarche: 11 Physical Exam Vital Signs: Last Vital Signs Pulse 88 02/17/24 13:30 BP 126/70 02/17/24 13:30 BMI result Body Mass Index 44.9 Neck Neck: Yes normal visual inspection Thyroid: Thyroid normal Resp Effort & Inspection: normal respiratory effort Extrem Other: Visual exam of foot performed. No ulcerations or open lesions. No onchomycosis, no callouses. Sensation intact to monofilament exam. Vibratory sensation is normal with 128 Hz tuning fork. Results AMB Hemoglobin A1c AMB Hemoglobin A1c 9.9 % Last Edit by CRISTOBAL Espinosa on 02/17/24 13:48 Quality Reporting (2019) Adult ([facility] 138/09/09/68) Body Mass Index: 44.9 Results Reviewed Results Reviewed: Laboratory Last Values Glucose (Clinic) 236 mg/dL (60-115) H 02/17/24 13:38 Hgb A1c (Clinic) 9.9 % (4.0-6.0) H 02/17/24 13:28 Laboratory Tests 06/03/23 10/18/23 10/20/23 10:57 09:11 10:34 Potassium 3.7 BUN 18 H Creatinine 0.64 Estimated GFR > 60 Hgb A1c (Clinic) 9.3 H 10.2 H Calcium 8.8 D Triglycerides 193 H Cholesterol 169 LDL Cholesterol, Calc 84 HDL Cholesterol 47 Assessment & Plan Assessment & Plan (1) Diabetes type 2, uncontrolled: Onset Date: Unknown Code(s): E11.65 - Type 2 diabetes mellitus with hyperglycemia Category: Medical Qualifiers: Glycemic state: with hyperglycemia Qualified Code(s): E11.65 - Type 2 diabetes mellitus with hyperglycemia Plan: Type 2 diabetic on u500 twice daily 500, metformin once a day and with difficulty tolerating and lower dose GLP 1 agonist with a A1c of 9.9%. Change metformin to extended release, increase Ozempic to 1.0 mg and start her on a freestyle 3. She has worn a sensor in the past but had difficulty keeping it on. Education done and how to insert and skin prep. She will use her android phone and we will start this herself if she has difficulty she will contact the educator senior clinical. She will return in 3 weeks to review her numbers Orders: Orders AMB Hemoglobin A1c Today E11.9 - Type 2 diabetes mellitus without complications Coding Level of Care Code Est Pt Level 4 (42106) Complex EM visit Add On G2211 Diagnoses Uncontrolled type 2 diabetes mellitus with hyperglycemia E11.65 Glycemic state: with hyperglycemia Time Spent (min) 30 Comment Time spent reviewing labs/previous provider notes, face to face, chart documentation
[2024-02-17 13:55] VITALS: BMI 44.9
== END 2024-02-17 14:04 | disposition home or self-care (01) ==
PROVIDERS: PCP Internal Medicine; Visit Provider Nurse Practitioner Adult Health
DX: E11.65 Type 2 diabetes mellitus with hyperglycemia (principal); E11.9 Type 2 diabetes mellitus without complications
CPT/HCPCS: 99214; G2211

== ENCOUNTER → 2024-02-17 13:18 | Outpatient (BNVA) | payer OTHER, SELFPAY | PROVIDERS: PCP Internal Medicine; Visit Provider Nurse Practitioner Adult Health | DX: E11.65 Type 2 diabetes mellitus with hyperglycemia (principal) | CPT/HCPCS: 82947; 83036; 99212 ==

== ENCOUNTER 2024-03-09 10:25 | Outpatient (AMB) | payer OTHER, SELFPAY ==
--- NOTE | 2024-03-09 10:42 | A.OFFVIS_ITS ---
Vital Signs 03/09/24 10:46 Height 5 ft 7.8 in Weight 293 lb 10.491 oz BMI 44.9 BP 138/76 Blood Pressure Location Rt brachial Position Sitting Pulse 78 Pulse Source Pulse Oximeter Intake Visit Reasons: T2DM Intake Note: Patient present today to follow up on Type 2 Diabetes Mellitus. 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 She is not taking metformin 1000 mg which she takes just once daily due to intolerability, Ozempic 1 mg Qwkly Glucometer download shows she is checking her point cares once a day. Average glucose is 133 with standard deviation of 34. 87% range with 13% hyperglycemia no hypoglycemia She has DM type 2 diagnosed 13 years ago , PCP is DR Ledesma . tried Afrezza, did not tolerated. Complications: retinopathy, + nephropathy, had + microalbumin in 2013 now resolved, no neuropathy, CVA, CAD, PVD. Last ophthalmology evaluation:2 yrs ago . Needs to make appt , no need for last yr photocoagulation or VEGF therapy. No hypoglycemia with POC<80 Denies nocturia, polyuria, polydipsia, blurred vision, denies numbness or tingling's [facility] Medical History Diabetes type 2, uncontrolled (Unknown) Dyslipidemia STAN (generalized anxiety disorder) GERD (gastroesophageal reflux disease) Hypertension [facility] (current) use of insulin Migraine headache Mild recurrent major depression Morbid obesity Right leg pain Venous insufficiency of left lower extremity Vitamin D deficiency Surgical History Hx of tubal ligation Hx of section Hx of arthroscopy of left knee Hx of cholecystectomy Family History Father COPD (chronic obstructive pulmonary disease) Mother Breast cancer Social History Housing: Apartment Alcohol intake: never Patient Tobacco Use Status: Never used Tobacco e-Cigarette/Vaping Use: Never Used Second Hand Smoke Exposure: No service: No Current occupational status: employed Current occupational exposures/hazards: No Cognitive needs: No Hearing needs: No Vision needs: No Female Reproductive History Menstrual Age of Menarche: 11 Physical Exam Absence of Cushingoid features. Absence of acromegalic features. Neck exam reveals nl size thyroid about 15 gms. No thyroid nodules palpable. No carotid bruits present. Lungs CTA. Heart S1 S2, Reg R/R. No M/R/ G. Skin exam reveals absence of vitiligo or acanthosis nigricans. Abdominal exam reveals Soft NT/ND with NA BS. No organomegaly present. Neck Other: . Extrem Other: Visual exam of foot performed. No ulcerations or open lesions. No onchomycosis, no callouses.Pulses 2 + distally Sensation intact to monofilament exam. Vibratory sensation sensed is intact with 128 Hz tuning fork Assessment & Plan Assessment & Plan (1) Diabetes type 2, uncontrolled: Onset Date: Unknown Code(s): E11.65 - Type 2 diabetes mellitus with hyperglycemia Category: Medical Qualifiers: Glycemic state: with hyperglycemia Qualified Code(s): E11.65 - Type 2 diabetes mellitus with hyperglycemia Plan: This is a 48-year-old female with history of type 2 diabetes being treated with U-500 insulin and metformin with poor glycemic control and known microvascular complications namely retinopathy. Plan is to have the patient check her point cares pre and post meals. Once again, stressed the importance of using the sensor particularly with the U-500 insulin and risk for hypoglycemia as well as to better glycemic control . She has Holley sensor at home we will restart and bring to her next appointment Went over relationship poor glycemic control to development and progression complication. Have patient follow up with Ann Atkinson NP in 4 wks Orders: Referrals Ophthalmology Referral E11.65 - Type 2 diabetes mellitus with hyperglycemia Coding Level of Care Code Est Pt Level 4 (20056) Diagnoses Uncontrolled type 2 diabetes mellitus with hyperglycemia E11.65 Glycemic state: with hyperglycemia
[2024-03-09 10:46] VITALS: BP 138/76; PULSE 78; BMI 44.9
[2024-03-09 10:58] LABS: Glucose, Whole Blood 162 mg/dL (60-115)
== END 2024-03-09 11:04 | disposition home or self-care (01) ==
PROVIDERS: PCP Internal Medicine; Visit Provider Internal Medicine Endocrinology, Diabetes & Metabolism
DX: E11.65 Type 2 diabetes mellitus with hyperglycemia (principal)
CPT/HCPCS: 99214

== ENCOUNTER → 2024-03-09 10:25 | Outpatient (BNVA) | payer OTHER, SELFPAY | PROVIDERS: PCP Internal Medicine; Visit Provider Internal Medicine Endocrinology, Diabetes & Metabolism | DX: E11.65 Type 2 diabetes mellitus with hyperglycemia (principal); Z79.4 Long term (current) use of insulin | CPT/HCPCS: 82947; 99212 ==

== ENCOUNTER 2024-03-27 13:21 | Outpatient (AMB) | payer OTHER, SELFPAY ==
--- NOTE | 2024-03-27 13:31 | A.OFFVIS_ITS ---
VS Expanded 03/27/24 13:32 Height 5 ft 7.8 in Weight 295 lb 3.183 oz BMI 45.1 Intake Visit Reasons: T2DM Allergies dulaglutide [Trulicity] Adverse Reaction (Intermediate, Verified 03/09/24 10:47) nausea,vomiting,diarrhea Nutrition Presentation Details: Pt presents for MNT f/u for T2DM Pt was last seen for nutrition in 2022 Pt reports eating a variety of foods with no meal routine, sometimes finds herself increasing intake of starches. BS Monitoring Most Recent Diabetes Results: No Data to Display PFSH Medical History Diabetes type 2, uncontrolled (Unknown) Dyslipidemia STAN (generalized anxiety disorder) GERD (gastroesophageal reflux disease) Hypertension [facility] (current) use of insulin Migraine headache Mild recurrent major depression Morbid obesity Right leg pain Venous insufficiency of left lower extremity Vitamin D deficiency Surgical History Hx of tubal ligation Hx of section Hx of arthroscopy of left knee Hx of cholecystectomy Family History Father COPD (chronic obstructive pulmonary disease) Mother Breast cancer Social History Housing: Apartment Alcohol intake: never Patient Tobacco Use Status: Never used Tobacco e-Cigarette/Vaping Use: Never Used Second Hand Smoke Exposure: No service: No Current occupational status: employed Current occupational exposures/hazards: No Cognitive needs: No Hearing needs: No Vision needs: No Female Reproductive History Menstrual Age of Menarche: 11 Assessment & Plan Assessment & Plan (1) Diabetes type 2, uncontrolled: Onset Date: Unknown Code(s): E11.65 - Type 2 diabetes mellitus with hyperglycemia Category: Medical Qualifiers: Glycemic state: with hyperglycemia Qualified Code(s): E11.65 - Type 2 diabetes mellitus with hyperglycemia Plan: wt: 131 kg (04/2023), 134 kg (03/2024) Est kcal needs as per MSJ: 2400 (40% carb, 30% protein/fat) Est fluid needs as per 30 ml/d: 4000 Est prot per day as per 1 g/kg bw: 131 Recommend fiber intake : 8-10 g per day and gradually increase to 25-28 g per day for women and 35-38 g for men or as tolerated Recommend sodium intake per day : less than 2000 mg Educated patient on: ( R = reviewed V = verbalizes understanding N/R = needs review N/A = not applicable * Food sources of carbohydrate, adequate serving sizes and its role in various health conditions: R * Differences between complex carbohydrates a simple carbohydrates, role of fiber in diet: R * role of hydration: r * Differences between types of fats and role in diet (mono on saturated fat fatty acids, saturated fatty acids, trans fats): NR * Food sources of sodium in salt and healthy modifications for heart health in kidney health: NR * Vitamins and minerals: NR * Healthy plate method concept: R * Physical activity: Benefits a precaution: R * Hypoglycemia protocol (rule of 15): NR * Dietary prevention of Hyperglycemia: R * [employer] application resources : R Patient Instructions: Reduce portion of rice to 1 cup serving following healthy plate method Choose decaf beverages Coding Level of Care Code Nutr Indiv Subseq (26479) Diagnoses Uncontrolled type 2 diabetes mellitus with hyperglycemia E11.65 Glycemic state: with hyperglycemia Time Spent (min) 30
[2024-03-27 13:32] VITALS: BMI 45.1
== END 2024-03-27 14:01 | disposition home or self-care (01) ==
PROVIDERS: PCP Internal Medicine; Visit Provider Dietitian, Registered
DX: E11.65 Type 2 diabetes mellitus with hyperglycemia (principal)

== ENCOUNTER → 2024-03-27 13:21 | Outpatient (BNVA) | payer OTHER, SELFPAY | PROVIDERS: PCP Internal Medicine; Visit Provider Dietitian, Registered | DX: E11.65 Type 2 diabetes mellitus with hyperglycemia (principal) | CPT/HCPCS: 97803 ==

== ENCOUNTER 2024-06-30 13:13 | Outpatient (AMB) | payer OTHER, SELFPAY ==
[2024-06-30 13:16] VITALS: BP 110/64; PULSE 84; BMI 43.4
--- NOTE | 2024-06-30 13:16 | A.OFFVIS_ITS ---
Vital Signs 06/30/24 13:16 Height 5 ft 7.8 in Weight 283 lb 15.286 oz BMI 43.4 BP 110/64 Blood Pressure Location Lt brachial Position Sitting Pulse 84 Pulse Source Pulse Oximeter Intake Visit Reasons: DM/Confirmed Intake Note: Patient present today for Type 2 Diabetes Mellitus. Last Diabetic eye exam: Over one year ago Last Podiatry Visit: Doesn't have one Random Glucose: 190 mg/dl HgA1C: 6.9% Tanning Consultant Required: No Accompanied by: Self / Same As Patient Allergies dulaglutide [Trulicity] Adverse Reaction (Intermediate, Verified 06/30/24 13:21) nausea,vomiting,diarrhea Medication List - Last Reconciled 06/30/24 by Swapna Crowe PA-C amlodipine 10 mg PO DAILY 90 days aspirin 81 mg PO DAILY 90 days atorvastatin 20 mg PO DAILY 30 days betamethasone dipropionate 0.05% 1 appl topical DAILY PRN 2 weeks bisacodyl (Dulcolax (bisacodyl)) 20 mg (4 x 5 mg) PO ONCE 1 day blood sugar diagnostic (FreeStyle Lite Strips) DIRECTED TEST 4 TIMES A DAY *INSURANCE ONLY ALLOW 100 FOR 30 DAYS* blood-glucose meter (FreeStyle Ramah Lite kit) As directed blood-glucose sensor (FreeStyle Holley 3 Sensor device) As directed cholecalciferol (vitamin D3) 50 mcg PO DAILY 90 days hydralazine 10 mg PO TID 90 days ibuprofen 800 mg PO TID insulin regular hum U-500 conc (Humulin R U-500 (Conc) Insulin Kwikpen) 65 units before breakfast and 85 units before dinner subcut .Twice a day; 30 days lancets Use 1 lancet three times a day lancets (FreeStyle Lancets) As directed test 4 times a day lisinopril 40 mg PO DAILY metoprolol tartrate 25 mg PO BID 90 days pen needle, diabetic (1st Tier Unifine Pentips) As directed pen needle, diabetic (BD Shakila 2nd Gen Pen Needle) Twice a day polyethylene glycol 3350 (Miralax) 238 grams PO ONCE PRN 1 day semaglutide (Ozempic) 1 mg (0.75 mL) subcut QWEEK 28 days semaglutide (Ozempic) 0.25 mg (0.368 mL) subcut QWEEK topiramate 50 mg PO BEDTIME 90 days HPI HPI DM/Confirmed: Details: Patient is a 48-year-old female with a significant past medical history of hypertension, hyperlipidemia, anxiety, depression, morbid obesity, and uncontrolled type 2 diabetes presenting today for a diabetic follow-up. She last seen in February. Dm: A1c is 6.9 today. She was diagnosed around 2009. She is currently on U 500 insulin 65 in the AM and 85 in the PM , metformin 500 mg twice a day and Ozempic 1 mg weekly. She states that she is waking up but some low blood sugars around 80. She will feel shaky with this. She is having to correct this with orange juice. States that she does not have any glucose tabs at home. CGM- states the holley falls off all of the time and she is sensitive to the tape/adhesive. She would be interested in trying the dexcom. CV: Blood pressure today in the office is 110/64. She is on amlodipine 10 mg, hydralazine 10 mg 3 times a day, metoprolol 25 mg twice a day, and lisinopril 40 mg. On atorvastatin 20 mg daily. 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 Migraine headache Mild recurrent major depression Morbid obesity Right leg pain Venous insufficiency of left lower extremity Vitamin D deficiency Surgical History Hx of tubal ligation Hx of section Hx of arthroscopy of left knee Hx of cholecystectomy Family History Father COPD (chronic obstructive pulmonary disease) Mother Breast cancer Social History Housing: Apartment Alcohol intake: never Patient Tobacco Use Status: Never used Tobacco e-Cigarette/Vaping Use: Never Used Second Hand Smoke Exposure: No service: No Current occupational status: employed Current occupational exposures/hazards: No Cognitive needs: No Hearing needs: No Vision needs: No Female Reproductive History Menstrual Age of Menarche: 11 Physical Exam Vital Signs: Last Vital Signs Pulse 84 06/30/24 13:16 BP 110/64 06/30/24 13:16 BMI result Body Mass Index 43.4 Const Orientation/consciousness: patient oriented x3 Neck Neck: Yes no lymphadenopathy Thyroid: Thyroid normal Carotids: no bruits Resp Auscultation: clear to auscultation bilaterally Cardio Rate: regular rate Rhythm: regular rhythm Heart sounds: S1 normal heart sound present and S2 normal heart sound present Neuro General: patient oriented x3, gait normal and no focal motor deficits Extrem General: Yes normal to inspection Results AMB Hemoglobin A1c AMB Hemoglobin A1c 6.9 % Last Edit by CRISTOBAL Guerra on 06/30/24 13:54 Results Reviewed Results Reviewed: Laboratory Last Values Glucose (Clinic) 190 mg/dL (60-115) H 06/30/24 13:23 Laboratory Tests 10/18/23 10/18/23 02/17/24 09:09 09:11 13:28 Creatinine 0.64 Estimated GFR > 60 Hgb A1c (Clinic) 9.9 H Triglycerides 193 H Cholesterol 169 LDL Cholesterol, Calc 84 HDL Cholesterol 47 Urine Creatinine 193.31 Urine Microalbumin 110.0 Microalb/Creat Ratio 56.9 H Assessment & Plan Assessment & Plan (1) Diabetes type 2, uncontrolled: Onset Date: Unknown Code(s): E11.65 - Type 2 diabetes mellitus with hyperglycemia Category: Medical Qualifiers: Glycemic state: with hyperglycemia Qualified Code(s): E11.65 - Type 2 diabetes mellitus with hyperglycemia Plan: dexcom G7 given in the office today. I did download the eliel for patient and paired the device and sensor. sensors sent to pharmacy given intolerance to holley. given the low blood sugars I will reduce her evening Humulin to 75 units. She will let me know if she still is going low. If so, advised to further decrease insulin. I have increased Ozempic. Discussed diet changes increasing protein in reducing carbohydrate and sugar intake. She is actively trying to do this to lose weight. 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 Continue current regimen (4) Dyslipidemia: Code(s): E78.5 - Hyperlipidemia, unspecified Category: Medical Plan: Continue current regimen (5) Morbid obesity: Code(s): E66.01 - Morbid (severe) obesity due to excess calories Category: Medical Plan: Increased Ozempic. Currently trying to lose weight. Encouraged increased protein and exercise. Orders: Orders AMB Hemoglobin A1c Today E11.65 - Type 2 diabetes mellitus with hyperglycemia, Z13.9 - Encounter for screening, unspecified Medications: New semaglutide (Ozempic) 2 mg (0.75 mL) subcut QWEEK 3 mL 5RF blood-glucose sensor (Dexcom G7 Sensor device) Use daily As directed to monitor glucose. 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 glucose (Dex4 Glucose) until symptoms of low blood sugar are controlled 16 grams (4 x 4 gram) PO Q15M PRN 100 tabs 0RF hypoglycemia Changed From insulin regular hum U-500 conc (Humulin R U-500 (Conc) Insulin Kwikpen) 65 units before breakfast and 85 units before dinner subcut .Twice a day; 30 days 12 mL 5RF E11.65 - Type 2 diabetes mellitus with hyperglycemia To insulin regular hum U-500 conc (Humulin R U-500 (Conc) Insulin Kwikpen) 65 units before breakfast and 75 units before dinner subcut .Twice a day; 30 days 12 mL 5RF E11.65 - Type 2 diabetes mellitus with hyperglycemia Discontinued semaglutide (Ozempic) Discontinued Reason: Doctor's Order 1 mg (0.75 mL) subcut QWEEK 28 days 3 mL 11RF E11.65 - Type 2 diabetes mellitus with hyperglycemia semaglutide (Ozempic) for 4 weeks Discontinued Reason: Doctor's Order 0.25 mg (0.368 mL) subcut QWEEK 3 mL 4RF Coding Level of Care Code Est Pt Level 4 (97494) Complex EM visit Add On G2211 Diagnoses Uncontrolled type 2 diabetes mellitus with hyperglycemia E11.65 Glycemic state: with hyperglycemia 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
[2024-06-30 13:27] LABS: Glucose, Whole Blood 190 mg/dL (60-115)
== END 2024-06-30 14:01 | disposition home or self-care (01) ==
PROVIDERS: PCP Internal Medicine; Visit Provider Physician Assistant
DX: E11.65 Type 2 diabetes mellitus with hyperglycemia (principal); Z79.4 Long term (current) use of insulin; I10 Essential (primary) hypertension; E78.5 Hyperlipidemia, unspecified; E66.01 Morbid (severe) obesity due to excess calories; Z13.9 Encounter for screening, unspecified

== ENCOUNTER → 2024-06-30 13:13 | Outpatient (BNVA) | payer OTHER, SELFPAY | PROVIDERS: PCP Internal Medicine; Visit Provider Physician Assistant | DX: E11.65 Type 2 diabetes mellitus with hyperglycemia (principal); I10 Essential (primary) hypertension; F41.9 Anxiety disorder, unspecified; E78.5 Hyperlipidemia, unspecified; E66.01 Morbid (severe) obesity due to excess calories; Z68.41 Body mass index [BMI] 40.0-44.9, adult; Z79.4 Long term (current) use of insulin | CPT/HCPCS: 82947; 83036; 99212 ==

== ENCOUNTER 2024-07-18 09:57 | Outpatient (AMB) | payer OTHER, SELFPAY ==
[2024-07-18 10:04] VITALS: BP 122/78; PULSE 78; O2SAT 96; BMI 40.2
--- NOTE | 2024-07-18 10:04 | MHC.PC.OV ---
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 Accompanied by: Spouse Allergies dulaglutide [Trulicity] Adverse Reaction (Intermediate, Verified 07/18/24 10:30) nausea,vomiting,diarrhea Medication List - Last Reconciled 07/18/24 by Marge Ordoñez MD amlodipine 10 mg PO DAILY 90 days aspirin 81 mg PO DAILY 90 days betamethasone dipropionate 0.05% 1 appl topical DAILY PRN 2 weeks bisacodyl (Dulcolax (bisacodyl)) 20 mg (4 x 5 mg) PO ONCE 1 day blood sugar diagnostic (FreeStyle Lite Strips) DIRECTED TEST 4 TIMES A DAY *INSURANCE ONLY ALLOW 100 FOR 30 DAYS* blood-glucose meter (FreeStyle [place] Lite kit) As directed blood-glucose sensor (FreeStyle [place] 3 Sensor device) As directed blood-glucose sensor (Dexcom G7 Sensor device) Use daily As directed to monitor glucose. change q 10 days cholecalciferol (vitamin D3) 50 mcg PO DAILY 90 days glucose (Dex4 Glucose) 16 grams (4 x 4 gram) PO Q15M PRN hydralazine 10 mg PO TID 90 days insulin regular hum U-500 conc (Humulin R U-500 (Conc) Insulin Kwikpen) 65 units before breakfast and 75 units before dinner subcut .Twice a day; 30 days lancets Use 1 lancet three times a day lancets (FreeStyle Lancets) As directed test 4 times a day lisinopril 40 mg PO DAILY metoprolol tartrate 25 mg PO BID 90 days pen needle, diabetic (1st Tier Unifine Pentips) As directed pen needle, diabetic (BD Shakila 2nd Gen Pen Needle) Twice a day polyethylene glycol 3350 (Miralax) 238 grams PO ONCE PRN 1 day potassium chloride ER 20 mEq PO DAILY semaglutide (Ozempic) 2 mg (0.75 mL) subcut QWEEK topiramate 50 mg PO BEDTIME 90 days Tobacco use date assessed: 12/08/22 HPI HPI Comments History of Present Illness Details The patient is a 48-year-old female presenting with a routine follow-up for her Type 2 Diabetes Mellitus, Hypertension, and Hyperlipidemia. The patient's blood pressure management appears stable. Her Hemoglobin A1c level is currently 6.9%, reflecting a recent improvement possibly due to medication or lifestyle adjustments, as she mentioned a recent weight loss of 20 pounds. The patient has reported prior complications related to upper respiratory infection which resulted in hospitalization and mechanical ventilation due to hypoxic respiratory failure. She is prescribed Ozempic, which may have contributed to her weight loss and needs further monitoring due to its potential effects on potassium levels. She is also managed with Lisinopril 40 mg and Metoprolol for hypertension control. The patient discontinued Atorvastatin, previously used for hyperlipidemia management, which might require reconsideration. She reports some discomfort and numbness from the knee down in one leg, with variable pain intensity. Management of her leg pain and complete resolution of symptoms are pending further evaluation. 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 Diabetes type 2, uncontrolled (Unknown) Surgical History Hx of tubal ligation Hx of section Hx of arthroscopy of left knee Hx of cholecystectomy Family History Father COPD (chronic obstructive pulmonary disease) Mother Breast cancer Social History Housing: Apartment Alcohol intake: never Patient Tobacco Use Status: Never used Tobacco e-Cigarette/Vaping Use: Never Used Second Hand Smoke Exposure: No service: No Current occupational status: employed Current occupational exposures/hazards: No Cognitive needs: No Hearing needs: No Vision needs: No Female Reproductive History Menstrual Age of Menarche: 11 Questionnaire Thrive Questionnaire Date Thrive assessed: 12/08/22 STAN-7 AMB Questionnaire STAN-7 Date STAN - 7 assessed: 12/08/22 Source: Developed by Drs. Nikolas Tellez, Amanda Wallace, Tex Medina and colleagues, with an educational ronnell from [employer]. Review of Systems Const Details: - Musculoskeletal: Reports leg pain and numbness from knee downwards. - Gastrointestinal: Reports fullness of gas on occasion. Physical exam (Primary Care) Vital Signs: Last Vital Signs Pulse 78 07/18/24 10:04 BP 122/78 07/18/24 10:04 Pulse Ox 96 07/18/24 10:04 Oxygen Delivery Method Room Air 07/18/24 10:04 BMI result Body Mass Index 40.2 BMI Assessment/Plan discussion: High BMI High, discussed plan: lifestyle, weight reduction, dietary and physical activity Tobacco/Smoking Status: Tobacco use Status Tobacco use date assessed 12/08/22 07/18/24 10:08 Patient Tobacco Use Status Never used Tobacco 07/18/24 10:08 e-Cigarette/Vaping Use Never Used 07/18/24 10:08 Thrive Assessment: Date of Thrive Assessment Date Thrive assessed 12/08/22 07/18/24 10:08 Const Other: General: No confusion Respiratory: Normal respiratory effort, clear to auscultation bilaterally Cardiovascular: No jugular venous distension, regular rate, regular rhythm, S1 normal heart sound present and S2 normal heart sound present Extremities: Full ROM, pain in leg from knee downwards Coding Level of Care Code Est Pt Level 4 (04511) Complex EM visit Add On G2211 Diagnoses Mild recurrent major depression F33.0 STAN (generalized anxiety disorder) F41.1 Right leg pain M79.604 Morbid obesity E66.01 Uncontrolled type 2 diabetes mellitus with hyperglycemia E11.65 Glycemic state: with hyperglycemia 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 Z79.4 Essential hypertension I10 Hypertension type: essential hypertension Dyslipidemia E78.5 Time Spent (min) 23 Assessment & Plan Assessment & Plan (1) Mild recurrent major depression: Code(s): F33.0 - Major depressive disorder, recurrent, mild Category: Medical (2) STAN (generalized anxiety disorder): Code(s): F41.1 - Generalized anxiety disorder Category: Medical (3) Right leg pain: Code(s): M79.604 - Pain in right leg Category: Medical (4) Morbid obesity: Code(s): E66.01 - Morbid (severe) obesity due to excess calories Category: Medical (5) Diabetes type 2, uncontrolled: Onset Date: Unknown Code(s): E11.65 - Type 2 diabetes mellitus with hyperglycemia Category: Medical Qualifiers: Glycemic state: with hyperglycemia Qualified Code(s): E11.65 - Type 2 diabetes mellitus with hyperglycemia (6) group home (current) use of insulin: Code(s): Z79.4 - group home (current) use of insulin Category: Medical (7) Hypertension: Code(s): I10 - Essential (primary) hypertension Category: Medical Qualifiers: Hypertension type: essential hypertension Qualified Code(s): I10 - Essential (primary) hypertension (8) Dyslipidemia: Code(s): E78.5 - Hyperlipidemia, unspecified Category: Medical Plan - Review and continue monitoring Type 2 Diabetes Mellitus with current medications, particularly focusing on maintaining A1c levels. - Maintain current hypertension management with Lisinopril and Metoprolol, and monitor blood pressure regularly. - Evaluate management for Hyperlipidemia, reconsider Atorvastatin discontinuation and discuss potential alternatives based on current cholesterol levels. - Schedule laboratory tests next week to reassess kidney function and potassium levels. - Address leg pain with recommended resting measures such as a heating pad or ice application based on patient comfort. Patient was informed and verbally consented to the use of an ambient scribe for clinic note documentation during this visit. I reviewed the importance of managing Type 2 Diabetes Mellitus, Hypertension, and Hyperlipidemia in a comprehensive manner, discussing the impact of current medication regimens and lifestyle modifications, including weight loss and its positive effects. I explained the potential impact of Ozempic on weight and potassium levels and recommended regular monitoring. We discussed the option to possibly reinstate Atorvastatin or consider alternatives and emphasized the value of consistent lab reassessments to track progress and tweak the regimen accordingly. The patient consented to forthcoming lab tests and acknowledged understanding concerning follow-up and management protocols for leg discomfort. I advised monitoring symptoms and encouraged lifestyle modifications as supportive care. Orders: Orders Comprehensive Met. Panel 07/18/24 K21.9 - Gastro-esophageal reflux disease without esophagitis Uric Acid 07/18/24 R52 - Pain, unspecified Complete Blood Count Auto Diff 07/18/24 D72.829 - Elevated white blood cell count, unspecified Medications: Discontinued semaglutide (Ozempic) Discontinued Reason: Patient Completed Course 2 mg (0.75 mL) subcut QWEEK 3 mL 5RF Patient Instructions: - Continue with current medications as prescribed. - Monitor blood pressure regularly and report any significant changes. - Use a heating pad or ice alternately on the leg as needed for pain relief. - Attend follow-up lab tests scheduled next week. - Contact the office if symptoms worsen or new symptoms develop.
== END 2024-07-18 10:46 | disposition home or self-care (01) ==
PROVIDERS: PCP Internal Medicine; Visit Provider Internal Medicine
DX: E11.65 Type 2 diabetes mellitus with hyperglycemia (principal); F33.0 Major depressive disorder, recurrent, mild; E66.01 Morbid (severe) obesity due to excess calories; Z79.4 Long term (current) use of insulin; Z68.41 Body mass index [BMI] 40.0-44.9, adult; F41.1 Generalized anxiety disorder; M79.604 Pain in right leg; I10 Essential (primary) hypertension; E78.5 Hyperlipidemia, unspecified

== ENCOUNTER 2024-08-03 08:53 | Outpatient (REF) | payer OTHER, SELFPAY ==
[2024-08-03 09:22] LABS: MANUAL DIFF FLAG NO
[2024-08-03 09:27] LABS: Basophils Absolute Auto 0.1 X10*3/uL (0.0-0.2); Eosinophils Absolute Auto 0.2 X10*3/uL (0.0-0.4); Eosinophils Percent Auto 1.7 % (0-4); Hematocrit 36.6 % (37.0-47.0); Hemoglobin 12.2 g/dl (12.0-16.0); Imm Gran Abs Auto 0.05 X10*3/uL (0.00-0.03); Imm Gran Pct Auto 0.5 % (0.0-0.4); Lymphocytes Absolute Auto 4.8 X10*3/uL (1.2-4.9); Mean Corpuscular HGB Conc 33.3 g/dl (31.0-35.0); Mean Corpuscular Hemoglobin 29.3 pg (27.0-33.0); Mean Platelet Volume 10.3 fL (9.4-12.3); Monocytes Absolute Auto 0.6 X10*3/uL (0.1-1.2); Monocytes Percent Auto 6.4 % (2-11); Neutrophils Absolute Auto 4.1 x10*3/uL (2.0-8.3); Neutrophils Percent Auto 41.4 % (45-73); Platelet Count 270 X10*3/uL (160-400); Red Blood Count 4.16 X10*6/uL (4.20-5.50); Red Cell Distribution Width 13.6 % (11.0-16.0); White Blood Count 9.8 X10*3/uL (4.8-10.8)
[2024-08-03 10:48] LABS: Albumin Level 3.8 g/dL (3.5-5.0); Anion Gap 14 (12-20); Aspartate Amino Transferase 23 U/L (5-31); Bilirubin Total 0.6 mg/dL (0.0-1.0); Blood Urea Nitrogen 18 mg/dL (9-16); Calcium 9.6 mg/dL (8.4-10.2); Carbon Dioxide 23 mmol/L (22-29); Chloride 108 mmol/L (96-108); Estimated Glomerular Filt Rate > 60; Glucose Random 188 mg/dL (60-115); Potassium 3.7 mmol/L (3.3-5.1); Sodium 141 mmol/L (135-145); Total Protein 8.1 g/dL (6.5-8.0); Uric Acid 8.2 mg/dL (2.4-5.7)
[2024-08-03 11:16] LABS: Alanine Aminotransferase 18 U/L (0-31); Alkaline Phosphatase 111 U/L (39-117)
== END 2024-08-03 08:54 | disposition home or self-care (01) ==
LOC: HO.LAB 08:53
PROVIDERS: PCP Internal Medicine; Visit Provider Internal Medicine
DX: M25.552 Pain in left hip (principal); D72.829 Elevated white blood cell count, unspecified; K21.9 Gastro-esophageal reflux disease without esophagitis; R52 Pain, unspecified
CPT/HCPCS: 36415; 80053; 84550; 85025; 96127; 99212

== ENCOUNTER 2024-08-03 09:42 | Outpatient (AMB) | payer OTHER, SELFPAY ==
--- NOTE | 2024-08-03 10:02 | A.OFFPC_ITS ---
Vital Signs 08/03/24 10:07 Height 5 ft 7.8 in Weight 259 lb 2 oz BMI 39.6 BP 126/82 Blood Pressure Location Lt brachial Position Sitting Pulse 100 Pulse Source Pulse Oximeter Temp 97.1 F Temp Source Temporal Artery Scan Pulse Oximetry (%) 99 Oxygen Delivery Method Room Air Intake Visit Reasons: [facility] 07/24 pain in left foot Intake Note: Patient is here to follow-up after a visit the emergency department at [facility] on 07/24/24 Brush Cutter Required: No Accompanied by: Self / Same As Patient Allergies dulaglutide [Trulicity] Adverse Reaction (Intermediate, Verified 08/03/24 13:28) nausea,vomiting,diarrhea Medication List - Last Reconciled 08/03/24 by Wilder Huggins MD amlodipine 10 mg PO DAILY 90 days aspirin 81 mg PO DAILY 90 days betamethasone dipropionate 0.05% 1 appl topical DAILY PRN 2 weeks bisacodyl (Dulcolax (bisacodyl)) 20 mg (4 x 5 mg) PO ONCE 1 day blood sugar diagnostic (FreeStyle Lite Strips) DIRECTED TEST 4 TIMES A DAY *INSURANCE ONLY ALLOW 100 FOR 30 DAYS* blood-glucose meter (FreeStyle [place] Lite kit) As directed blood-glucose sensor (FreeStyle Holley 3 Sensor device) As directed blood-glucose sensor (Dexcom G7 Sensor device) Use daily As directed to monitor glucose. change q 10 days cholecalciferol (vitamin D3) 50 mcg PO DAILY 90 days commode As directed glucose (Dex4 Glucose) 16 grams (4 x 4 gram) PO Q15M PRN hydralazine 10 mg PO TID 90 days insulin glargine (Lantus Solostar U-100 Insulin) 10 units (0.1 mL) subcut QPM 90 days insulin regular hum U-500 conc (Humulin R U-500 (Conc) Insulin Kwikpen) 65 units before breakfast and 75 units before dinner subcut .Twice a day; 30 days lancets Use 1 lancet three times a day lancets (FreeStyle Lancets) As directed test 4 times a day lisinopril 40 mg PO DAILY metoprolol tartrate 25 mg PO BID 90 days pen needle, diabetic (1st Tier Unifine Pentips) As directed pen needle, diabetic (BD Shakila 2nd Gen Pen Needle) Twice a day polyethylene glycol 3350 (Miralax) 238 grams PO ONCE PRN 1 day potassium chloride ER 20 mEq PO DAILY simethicone (Gas Relief (simethicone)) 180 mg PO BID PRN 90 days topiramate 50 mg PO BEDTIME 90 days tramadol 50 mg PO BID PRN 30 days walker (Ultra-Light Rollator misc) As directed Tobacco use date assessed: 08/03/24 Dental Screening Dental Screen Date: 08/03/24 Did you have a dental visit in the last 12 months?: No Did you have a dental problem in the last 6 months where you did not have access to dental care?: No Was dental information given to patient?: Patient has dentist HPI [facility] 07/24 pain in left foot HPI Details 48-year-old female presents to the offic e after a recent hospitalization. Patient was admitted to [facility] for shortness of breath and wheezing. She was found to have multilobar pneumonia and the hospital course was complicated with intubation and a short stay in the intensive care. Patient was subsequently discharged and sent home. After discharge, she started complaining of pain in the left cough and hip. She returned to the emergency room and a venous ultrasound ruled out thromboembolism. Patient continues to have hip pain and left leg pain. In addition she is also complaining of pain in the right wrist. She is now using a walker to ambulate as bearing weight in the left lower extremity is eliciting sharp pain. Patient's breathing and cough symptoms are improving. Her blood sugars are in range. 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 Diabetes type 2, uncontrolled (Unknown) Surgical History Hx of tubal ligation Hx of section Hx of arthroscopy of left knee Hx of cholecystectomy Family History Father COPD (chronic obstructive pulmonary disease) Mother Breast cancer Social History Housing: Apartment Alcohol intake: never Patient Tobacco Use Status: Never used Tobacco e-Cigarette/Vaping Use: Never Used Second Hand Smoke Exposure: No service: No Current occupational status: employed Current occupational exposures/hazards: No Cognitive needs: No Hearing needs: No Vision needs: No Female Reproductive History Menstrual Age of Menarche: 11 Questionnaire PHQ-9 Over the last 2 weeks, how often have you been bothered by any of the following problems? 1. Little interest or pleasure in doing things: not at all 2. Feeling down, depressed, or hopeless: not at all 3. Trouble falling or staying asleep, or sleeping too much: not at all 4. Feeling tired or having little energy: not at all 5. Poor appetite or overeating: not at all 6. Feeling bad about yourself - or that you are a failure or have let yourself or your family down: not at all 7. Trouble concentrating on things, such as reading the newspaper or watching television: not at all 8. Moving or speaking so slowly that other people could have noticed. Or the opposite - being so fidgety or restless that you have been moving around a lot more than usual: not at all 9. Thoughts that you would be better off or of hurting yourself in some way: not at all Total score: 0 Depression Screening Interpretation: Negative Depression Screening Done: Yes 96678 - PHQ-9 Billing: Yes Source: Developed by Drs. Nikolas Tellez, Amanda Wallace, Tex Medina and colleagues, with an educational ronnell from [employer]. Thrive Questionnaire Date Thrive assessed: 08/03/24 Currently or been in a relationship where the following occur: No concerns reported THRIVE Score: 0 AUDIT C Alcohol Use Questionnaire (AUDIT-C) 1. How often do you have a drink containing alcohol?: Never 3. How often do you have six or more drinks on one occasion?: Never Total Score: 0 STAN-7 AMB Questionnaire STAN-7 Date STAN - 7 assessed: 08/03/24 Feeling nervous, anxious, or on edge: 0 = Not at all Not being able to stop or control worryin = Not at all Worrying too much about different things: 0 = Not at all Trouble relaxin = Not at all Being so restless that it is hard to sit still: 0 = Not at all Becoming easily annoyed or irritable: 0 = Not at all Feeling afraid as if something awful might happen: 0 = Not at all Total STAN-7 score (0-4 normal; 5-9 mild; 10-14 moderate; 15-21 severe): 0 Source: Developed by Drs. Nikolas Tellez, Amanda Wallace, Tex Medina and colleagues, with an educational ronnell from [employer]. STAN-7 Assessment Billing STAN-7 Assessment Tool: STAN-7 Assessment 54488 Physical exam (Primary Care) Vital Signs: Last Vital Signs Temp 97.1 F 08/03/24 10:07 Pulse 100 08/03/24 10:07 BP 126/82 08/03/24 10:07 Pulse Ox 99 08/03/24 10:07 Oxygen Delivery Method Room Air 08/03/24 10:07 BMI result Body Mass Index 39.6 Tobacco/Smoking Status: Tobacco use Status Tobacco use date assessed 08/03/24 08/03/24 10:05 Patient Tobacco Use Status Never used Tobacco 08/03/24 10:03 e-Cigarette/Vaping Use Never Used 08/03/24 10:03 PHQ-9: PHQ-9 Score PHQ-9: Total score 0 08/03/24 10:05 Depression Screening Interpretation: Negative Thrive Assessment: Date of Thrive Assessment Date Thrive assessed 08/03/24 08/03/24 10:03 Currently or been in a relationship where the following occur: No concerns reported Const General: cooperative and healthy appearing Nutritional Appearance: well nourished Orientation/consciousness: patient oriented x3 Limitations: no limitations HENMT Head: Yes normal to inspection Eyes General: appearance normal, both eyes and all related structures Neck Neck: Yes normal visual inspection Chest Chest palpation & inspection: normal palpation of entire chest wall Resp Effort & Inspection: normal respiratory effort Back/Spine/Pelvis Other: Left hip and lower extremity: No bruising over the skin. Tenderness on palpation around the hip and greater trochanter. Patient was examined in a lying position with her knees flexed. Abduction at the left hip elicits pain. Painful adduction. No calf tenderness. Foot is normal and no evidence of edema. Neuro General: patient oriented x3 Coding Level of Care Code Est Pt Level 4 (52159) Complex EM visit Add On G2211 Diagnoses Left hip pain M25.552 Additional Codes STAN-7 Assessment Billing - STAN-7 Assessment Tool: STAN-7 Assessment 06401 ([id number]) PHQ-9 - 96322 - PHQ-9 Billing: Yes ([id number]) Assessment & Plan Assessment & Plan (1) Left hip pain: Code(s): M25.552 - Pain in left hip Plan: On today's examination, I felt that her left hip pain was more muscular in etiology. I instructed them to increase the tramadol to 3 times a day for a week. Cyclobenzaprine in addition has been called in. Should pain symptoms worsened, she should go back to the emergency room for intramuscular injections of pain medication.
[2024-08-03 10:07] VITALS: BP 126/82; PULSE 100; TEMP 36.2; O2SAT 99; BMI 39.6
== END 2024-08-03 12:06 | disposition home or self-care (01) ==
PROVIDERS: PCP Internal Medicine; Visit Provider Internal Medicine
DX: M25.552 Pain in left hip (principal)

== ENCOUNTER 2024-08-23 15:02 | Outpatient (AMB) | payer OTHER, SELFPAY ==
[2024-08-23 15:09] VITALS: BP 134/72; BMI 39.9
--- NOTE | 2024-08-23 15:09 | MHC.PC.OV ---
Vital Signs 08/23/24 15:09 Height 5 ft 7.8 in Weight 261 lb BMI 39.9 BP 134/72 Blood Pressure Location Lt brachial Position Sitting Intake Visit Reasons: Pain on left leg Intake Note: Patient here c/o of left leg pain Human Resources Director Required: Yes Human Resources Director Language: Electronic Repair Troubleshooter Name: Marge Ordoñez MD Information Interpreted: non-clinical & clinical Accompanied by: Spouse Allergies dulaglutide [Trulicity] Adverse Reaction (Intermediate, Verified 08/23/24 15:19) nausea,vomiting,diarrhea Medication List - Last Reconciled 08/23/24 by Marge Ordoñez MD amlodipine 10 mg PO DAILY 90 days aspirin 81 mg PO DAILY 90 days betamethasone dipropionate 0.05% 1 appl topical DAILY PRN 2 weeks bisacodyl (Dulcolax (bisacodyl)) 20 mg (4 x 5 mg) PO ONCE 1 day blood sugar diagnostic (FreeStyle Lite Strips) DIRECTED TEST 4 TIMES A DAY *INSURANCE ONLY ALLOW 100 FOR 30 DAYS* blood-glucose meter (FreeStyle [place] Lite kit) As directed blood-glucose sensor (FreeStyle [place] 3 Sensor device) As directed blood-glucose sensor (Dexcom G7 Sensor device) Use daily As directed to monitor glucose. change q 10 days cholecalciferol (vitamin D3) 50 mcg PO DAILY 90 days commode As directed cyclobenzaprine 10 mg PO BEDTIME glucose (Dex4 Glucose) 16 grams (4 x 4 gram) PO Q15M PRN hydralazine 10 mg PO TID 90 days insulin glargine (Lantus Solostar U-100 Insulin) 10 units (0.1 mL) subcut QPM 90 days insulin regular hum U-500 conc (Humulin R U-500 (Conc) Insulin Kwikpen) 65 units before breakfast and 75 units before dinner subcut .Twice a day; 30 days lancets Use 1 lancet three times a day lancets (FreeStyle Lancets) As directed test 4 times a day lisinopril 40 mg PO DAILY metoprolol tartrate 25 mg PO BID 90 days pen needle, diabetic (1st Tier Unifine Pentips) As directed pen needle, diabetic (BD Shakila 2nd Gen Pen Needle) Twice a day polyethylene glycol 3350 (Miralax) 238 grams PO ONCE PRN 1 day potassium chloride ER 20 mEq PO DAILY simethicone (Gas Relief (simethicone)) 180 mg PO BID PRN 90 days topiramate 50 mg PO BEDTIME 90 days tramadol 50 mg PO Q8H PRN 30 days walker (Ultra-Light Rollator misc) As directed Tobacco use date assessed: 08/03/24 Dental Screening Dental Screen Date: 08/03/24 HPI HPI Comments History of Present Illness Details The patient is a 49-year-old female presenting with numbness in the left lower extremity and right upper extremity. The symptoms began following her discharge from the hospital on July 11. She reports the left foot feels numb and the sensation extends upward along the leg. The right hand also exhibits numbness. A muscle relaxant was prescribed, but it did not alleviate the symptoms. She underwent an ultrasound approximately two to three weeks ago to rule out deep vein thrombosis, with results showing no blood clots. Blood tests indicated elevated uric acid levels; however, gout was considered unlikely due to symptomatology involving larger areas and lack of localized inflammation. The patient also expressed concern about a persistent headache, occurring over the past three days, but notably absent today. Additionally, she reports a recent development of a scalp condition described as a sore or lesion, possibly incurred during her hospital stay, although not present during admission. Her insomnia persists unless taking gabapentin prescribed by another practitioner, which provided temporary relief. She also has diabetes mellitus type 2, hypertension and hyperlipidemia that are stable with medications. [facility] Medical History (Updated 08/23/24 @ 19:34 by Marge Ordoñez MD) Mild recurrent major depression Right leg pain STAN (generalized anxiety disorder) Venous insufficiency of left lower extremity GERD (gastroesophageal reflux disease) Migraine headache Vitamin D deficiency Morbid obesity Dyslipidemia Hypertension USP (current) use of insulin Diabetes type 2, uncontrolled (Unknown) Surgical History Hx of tubal ligation Hx of section Hx of arthroscopy of left knee Hx of cholecystectomy Family History Father COPD (chronic obstructive pulmonary disease) Mother Breast cancer Social History Housing: Apartment Alcohol intake: never Patient Tobacco Use Status: Never used Tobacco e-Cigarette/Vaping Use: Never Used Second Hand Smoke Exposure: No service: No Current occupational status: employed Current occupational exposures/hazards: No Cognitive needs: No Hearing needs: No Vision needs: No Female Reproductive History Menstrual Age of Menarche: 11 Questionnaire Thrive Questionnaire Date Thrive assessed: 08/03/24 STAN-7 AMB Questionnaire STAN-7 Date STAN - 7 assessed: 08/03/24 Source: Developed by Drs. Nikolas Tellez, Amanda Wallace, Tex Medina and colleagues, with an educational ronnell from [email or web address]. Review of Systems Const All systems reviewed & are unremarkable except as noted in HPI and below Card Denies chest pain at rest, Denies chest pain with activity, Denies edema, Denies irregular heart rhythm, Denies claudication, Denies dyspnea, Denies dyspnea on exertion, Denies orthopnea, Denies paroxysmal nocturnal dyspnea and Denies slow heart rate Resp Denies cough, Denies dyspnea and Denies dyspnea on exertion Musc Reports back pain, Reports arthralgias, Reports numbness and Reports radiating pain into limb Neuro Reports numbness Physical exam (Primary Care) Vital Signs: Last Vital Signs BP 134/72 08/23/24 15:09 BMI result Body Mass Index 39.9 BMI Assessment/Plan discussion: High BMI High, discussed plan: lifestyle, weight reduction, dietary and physical activity Tobacco/Smoking Status: Tobacco use Status Tobacco use date assessed 08/03/24 08/23/24 15:14 Patient Tobacco Use Status Never used Tobacco 08/23/24 15:14 e-Cigarette/Vaping Use Never Used 08/23/24 15:14 Thrive Assessment: Date of Thrive Assessment Date Thrive assessed 08/03/24 08/23/24 15:14 Resp Effort & Inspection: normal respiratory effort Auscultation: clear to auscultation bilaterally Cardio Jugular venous distension: no JVD Rate: regular rate Rhythm: regular rhythm Heart sounds: S1 normal heart sound present and S2 normal heart sound present Extrem General: Yes full ROM Coding Level of Care Code Est Pt Level 4 (52986) Complex EM visit Add On G2211 Diagnoses Left leg pain M79.605 Scalp lesion L98.9 Mild recurrent major depression F33.0 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 Essential hypertension I10 Hypertension type: essential hypertension Dyslipidemia E78.5 Time Spent (min) 22 Assessment & Plan Assessment & Plan (1) Left leg pain: Code(s): M79.605 - Pain in left leg Category: Medical (2) Scalp lesion: Code(s): L98.9 - Disorder of the skin and subcutaneous tissue, unspecified Category: Medical (3) Mild recurrent major depression: Code(s): F33.0 - Major depressive disorder, recurrent, mild Category: Medical (4) Diabetes mellitus: Code(s): E11.9 - Type 2 diabetes mellitus without complications Category: Medical (5) USP (current) use of insulin: Code(s): Z79.4 - 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 - Prescribe diclofenac, monitoring for gastrointestinal side effects, to address inflammation and pain management. - Refer to dermatology for evaluation and management of the scalp lesion. - Continue monitoring for any progression in the numbness or headache symptoms. - Arrange for a follow-up at the pain management clinic. Patient was informed and verbally consented to the use of an ambient scribe for clinic note documentation during this visit. During the discussion, I explained that the elevated uric acid levels are not the primary cause of her diffuse pain and leg numbness, and unlikely to be gout as symptoms involve larger areas without localized joint inflammation. The potential for a pinched nerve was considered due to prolonged immobility in the hospital. The rationale for using gabapentin was discussed, emphasizing its effectiveness for neuropathic pain. I highlighted the importance of regular use to ensure efficacy. Diclofenac was prescribed with caution advised due to potential gastrointestinal side effects. The patient consented to apply topical treatment for her scalp condition and to consult a roller leveler operator. Her claustrophobia was noted, with reassurance provided that imaging requiring confined spaces would be minimized. Orders: Referrals Pain Management Referral M79.605 - Pain in left leg Dermatology Referral L98.9 - Disorder of the skin and subcutaneous tissue, unspecified Medications: New gabapentin 300 mg PO TID 30 days 90 caps 1RF diclofenac potassium 50 mg PO TID 7 days PRN 21 tabs 0RF pain Patient Instructions: - Take gabapentin as prescribed, typically up to three times daily. - Use diclofenac strictly as directed, watching for any stomach upset. - Attend the dermatology appointment for further assessment of the scalp lesion. - Follow up with the pain management clinic as scheduled. - Monitor symptoms and report any new or worsening headaches or numbness. - Avoid activities that may worsen symptoms until further instructed.
== END 2024-08-23 15:32 | disposition home or self-care (01) ==
PROVIDERS: PCP Internal Medicine; Visit Provider Internal Medicine
DX: E11.69 Type 2 diabetes mellitus with other specified complication (principal); F33.0 Major depressive disorder, recurrent, mild; Z79.4 Long term (current) use of insulin; M79.605 Pain in left leg; L98.9 Disorder of the skin and subcutaneous tissue, unspecified; I10 Essential (primary) hypertension; E78.5 Hyperlipidemia, unspecified

== ENCOUNTER → 2024-08-23 15:02 | Outpatient (BNVA) | payer OTHER, SELFPAY | PROVIDERS: PCP Internal Medicine; Visit Provider Internal Medicine | DX: M79.605 Pain in left leg (principal); L98.9 Disorder of the skin and subcutaneous tissue, unspecified; F33.0 Major depressive disorder, recurrent, mild; E11.9 Type 2 diabetes mellitus without complications; E78.5 Hyperlipidemia, unspecified; I10 Essential (primary) hypertension; Z79.4 Long term (current) use of insulin | CPT/HCPCS: 99212 ==

== ENCOUNTER 2024-09-01 09:20 | Outpatient (AMB) | payer OTHER, SELFPAY ==
--- NOTE | 2024-09-01 09:25 | A.OFFVIS_ITS ---
Vital Signs 09/01/24 09:26 Height 5 ft 7.8 in Weight 260 lb BMI 39.8 BP 170/79 H Blood Pressure Location Lt brachial Position Sitting Respiration 16 Pulse 78 Pulse Source Pulse Oximeter Pulse Oximetry (%) 98 Oxygen Delivery Method Room Air Intake Visit Reasons: Pain in left leg Training Intern Required: No Allergies dulaglutide [Trulicity] Adverse Reaction (Intermediate, Verified 09/01/24 09:28) nausea,vomiting,diarrhea Medication List - Last Reconciled 09/01/24 by Rema Redd LPN amlodipine 10 mg PO DAILY 90 days aspirin 81 mg PO DAILY 90 days betamethasone dipropionate 0.05% 1 appl topical DAILY PRN 2 weeks blood sugar diagnostic (FreeStyle Lite Strips) DIRECTED TEST 4 TIMES A DAY *INSURANCE ONLY ALLOW 100 FOR 30 DAYS* blood-glucose meter (FreeStyle [place] Lite kit) As directed blood-glucose sensor (FreeStyle [place] 3 Sensor device) As directed blood-glucose sensor (OberSchar[place] G7 Sensor device) Use daily As directed to monitor glucose. change q 10 days cholecalciferol (vitamin D3) 50 mcg PO DAILY 90 days commode As directed cyclobenzaprine 10 mg PO BEDTIME diclofenac potassium 50 mg PO TID PRN 7 days gabapentin 300 mg PO TID 30 days glucose (Dex4 Glucose) 16 grams (4 x 4 gram) PO Q15M PRN hydralazine 10 mg PO TID 90 days insulin glargine (Lantus Solostar U-100 Insulin) 10 units (0.1 mL) subcut QPM 90 days insulin regular hum U-500 conc (Humulin R U-500 (Conc) Insulin Kwikpen) 65 units before breakfast and 75 units before dinner subcut .Twice a day; 30 days lancets Use 1 lancet three times a day lancets (FreeStyle Lancets) As directed test 4 times a day lisinopril 40 mg PO DAILY metoprolol tartrate 25 mg PO BID 90 days pen needle, diabetic (1st Tier Unifine Pentips) As directed pen needle, diabetic (BD Shakila 2nd Gen Pen Needle) Twice a day polyethylene glycol 3350 (Miralax) 238 grams PO ONCE PRN 1 day topiramate 50 mg PO BEDTIME 90 days tramadol 50 mg PO Q8H PRN 30 days walker (Ultra-Light Rollator misc) As directed HPI HPI Pain in left leg: Details: History of Present Illness The patient is a 49-year-old female presenting with ongoing and severe lower extremity pain, which began after a hospitalization for pneumonia in June 2023. Post-discharge, the patient reported numbness and pain in the feet, described as severe and with a pain score of 20 out of 10. Historical low back pain was noted prior, with a prescription for physical therapy that was not fulfilled. Emergency room visits confirmed no blood clots, and past studies like MRI have not been extensively pursued for differential diagnoses such as nerve compression syndrome. The pain has impacted the patient's mobility and quality of life, notably interfering with her ability to perform her job duties. Pain Description - Onset post-hospitalization for pneumonia, approximately July 13, 2023 - Severe pain score rated as 20/10 - Pain primarily in feet with sensations heri to being poked from underneath - Associated numbness in the feet - Functional impact: Limited ability to walk and perform work duties - Aggravating factors: Post-hospitalization immobility - Relieving factors: Minimal relief noted with gabapentin and tramadol; limited effect of ibuprofen Results - Ultrasound: No blood clots detected - Indirect mention of MRI use during prior ER visits for potential lower back issues without confirmed findings [facility] Medical History (Updated 09/01/24 @ 09:51 by Mart Kirkpatrick MD) Mild recurrent major depression Right leg pain STAN (generalized anxiety disorder) Venous insufficiency of left lower extremity GERD (gastroesophageal reflux disease) Migraine headache Vitamin D deficiency Morbid obesity Dyslipidemia Hypertension 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 Diabetes type 2, uncontrolled (Unknown) Surgical History Hx of tubal ligation Hx of section Hx of arthroscopy of left knee Hx of cholecystectomy Family History Father COPD (chronic obstructive pulmonary disease) Mother Breast cancer Social History Housing: Apartment Alcohol intake: never Patient Tobacco Use Status: Never used Tobacco e-Cigarette/Vaping Use: Never Used Second Hand Smoke Exposure: No service: No Current occupational status: employed Current occupational exposures/hazards: No Cognitive needs: No Hearing needs: No Vision needs: No Female Reproductive History Menstrual Age of Menarche: 11 Physical Exam Vital Signs: Last Vital Signs Pulse 78 09/01/24 09:26 Resp 16 09/01/24 09:26 BP 170/79 H 09/01/24 09:26 Pulse Ox 98 09/01/24 09:26 Oxygen Delivery Method Room Air 09/01/24 09:26 BMI result Body Mass Index 39.8 Assessment & Plan Assessment & Plan (1) Lumbar radicular pain: Code(s): M54.16 - Radiculopathy, lumbar region Category: Medical Plan Plan Patient was informed and verbally consented to the use of an ambient scribe for clinic note documentation during this visit. I discussed the patient's prolonged foot pain and its possible link to nerve compression syndrome. I advised that acquiring a lumbar MRI is essential for further evaluation. I explained the procedural details and the benefits of both current and proposed pharmacological regimens. Despite limitations, physical therapy offers a non-invasive treatment strategy, which the patient must consider. Risks associated with potential steroid injections, including temporary hyperglycemia, were explained. I reassured the patient that home-based stretches are effective interim measures. The patient consented to continuing medication management until diagnostic clarity is achieved. Patient Instructions - Await scheduling call for an open MRI appointment in [place]. - Continue taking prescribed medications: gabapentin and tramadol as suggested. - Use ibuprofen as needed for pain, but do not combine with diclofenac. - Engage in home-based stretches, specifically those targeting sciatica-related pain relief. - Report any changes in symptoms or medication side effects promptly. - Follow-up post-MRI for further evaluation and potential interventions. - Maintain a light activity level as tolerated, avoiding strain on feet. - Contact our office if pain becomes unbearable or emergency care is needed for diabetes-related complications. Orders: Orders MR lumbar spine wo con Today M54.16 - Radiculopathy, lumbar region Medications: New ibuprofen 600 mg PO TID PRN 60 tabs 0RF pain Coding Level of Care Code Est Pt Level 4 (52532) Diagnoses Lumbar radicular pain M54.16
[2024-09-01 09:26] VITALS: BP 170/79; PULSE 78; RESP 16; O2SAT 98; BMI 39.8
== END 2024-09-01 09:58 | disposition home or self-care (01) ==
PROVIDERS: PCP Internal Medicine; Referring Provider Internal Medicine; Visit Provider Internal Medicine
DX: M54.16 Radiculopathy, lumbar region (principal)
CPT/HCPCS: 99214

== ENCOUNTER → 2024-09-01 09:20 | Outpatient (BNVA) | payer OTHER, SELFPAY | PROVIDERS: PCP Internal Medicine; Referring Provider Internal Medicine; Visit Provider Internal Medicine | DX: M54.16 Radiculopathy, lumbar region (principal) | CPT/HCPCS: 99212 ==

== ENCOUNTER 2024-09-29 09:54 | Outpatient (AMB) | payer OTHER, SELFPAY ==
--- NOTE | 2024-09-29 09:54 | MHC.OFFVIS ---
Intake Visit Reasons: Unable to do MRI Allergies dulaglutide [Trulicity] Adverse Reaction (Intermediate, Verified 09/01/24 09:28) nausea,vomiting,diarrhea HPI HPI Unable to do MRI: Details: History of Present Illness Unable to complete MRI at [facility] due to severe claustrophobia. Requesting a truly open MRI or anesthesia. Pain Management - Affect: Pain is significantly impacting the patient's mood and mental well-being due to prolonged unresolved symptoms. - Analgesia: Likely involved with medication, including an oral sedative for imaging anxiety, but little effect recorded. - Adverse Effects: None noted specifically beyond anxiety during MRI. - Activities of Daily Living: Severely impacted; pain affects movement and work capability. - Aberrant Drug Related Behaviors: None reported or observed. [facility] Medical History (Updated 09/29/24 @ 13:33 by Swapna Crowe PA-C) Mild recurrent major depression Right leg pain STAN (generalized anxiety disorder) Venous insufficiency of left lower extremity GERD (gastroesophageal reflux disease) Migraine headache Vitamin D deficiency Morbid obesity Dyslipidemia Hypertension intermediate (current) use of insulin Diabetes type 2, uncontrolled (Unknown) Surgical History Hx of tubal ligation Hx of section Hx of arthroscopy of left knee Hx of cholecystectomy Family History Father COPD (chronic obstructive pulmonary disease) Mother Breast cancer Social History Housing: Apartment Alcohol intake: never Patient Tobacco Use Status: Never used Tobacco e-Cigarette/Vaping Use: Never Used Second Hand Smoke Exposure: No service: No Current occupational status: employed Current occupational exposures/hazards: No Cognitive needs: No Hearing needs: No Vision needs: No Female Reproductive History Menstrual Age of Menarche: 11 Results AMB Hemoglobin A1c AMB Hemoglobin A1c 7.7 % Last Edit by CRISTOBAL Espinosa on 09/29/24 13:22 Telehealth Telehealth Telehealth Platform: Telephone Location of provider rendering services: practice address Location of patient: address on file Patient Identification confirmed using: Name, : Yes Telehealth method: voice only Patient verbally consented to treatment: Yes Patient verbally consented to billing insurance company: Yes Patient informed of any privacy concerns related to visit: Yes Minutes spent on Phone/Video with Pt.: 5 Assessment & Plan Assessment & Plan (1) Lumbar radicular pain: Code(s): M54.16 - Radiculopathy, lumbar region Category: Medical Plan Plan I will coordinate a referral to a facility offering open MRI localized near the patient, facilitating imaging completion crucial for accurate chronic pain assessment. Reestablishing physical therapy geared towards managing chronic pain through conservative approaches is prioritized to mitigate her foot pain while maintaining awareness of her claustrophobic sensitivity. A plan will involve reviewing and potentially adjusting her pain management regimen post-diagnostic data for tailored effectiveness enhancements while ensuring continuous monitoring of progress in achieving a functional capability. Patient was informed and verbally consented to the use of an ambient scribe for clinic note documentation during this visit. Discussion Notes Patient Instructions - Arrange for an appointment with physical therapy and establish a schedule for gentle exercises. - Await and attend the appointment for the open MRI at the specified approved facility. - Maintain current medication as directed until further notice or new instructions arise. - Follow up on any calls from the MRI center to schedule and confirm participation. - Monitor and report any significant changes in pain or mood to my office. Coding Level of Care Code Tele Est Pt Level 3 (56773) Diagnoses Lumbar radicular pain M54.16
== END 2024-09-29 09:54 | disposition home or self-care (01) ==
LOC: HO.PMC 09:54
PROVIDERS: PCP Internal Medicine; Visit Provider Internal Medicine
DX: M54.16 Radiculopathy, lumbar region (principal)
CPT/HCPCS: 99213

== ENCOUNTER → 2024-09-29 09:54 | Outpatient (BNVA) | payer OTHER, SELFPAY | PROVIDERS: PCP Internal Medicine; Visit Provider Internal Medicine | DX: E11.65 Type 2 diabetes mellitus with hyperglycemia (principal); Z79.4 Long term (current) use of insulin; I10 Essential (primary) hypertension | CPT/HCPCS: 82947; 83036; 99212 ==

== ENCOUNTER 2024-09-29 13:01 | Outpatient (AMB) | payer OTHER, SELFPAY ==
[2024-09-29 13:07] VITALS: BP 124/78; PULSE 73; O2SAT 98; BMI 40.1
--- NOTE | 2024-09-29 13:07 | A.OFFVIS_ITS ---
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 Most recent HbA1c: 7.7%, 09/29/2024 Random Glucose- 251 mg/dL, Today Special Education Director Required: No Accompanied by: Self / Same As Patient Allergies dulaglutide [Trulicity] Adverse Reaction (Intermediate, Verified 09/01/24 09:28) nausea,vomiting,diarrhea Medication List - Last Reconciled 09/29/24 by Swapna Crowe PA-C amlodipine 10 mg PO DAILY 90 days aspirin 81 mg PO DAILY 90 days betamethasone dipropionate 0.05% 1 appl topical DAILY PRN 2 weeks blood sugar diagnostic (FreeStyle Lite Strips) DIRECTED TEST 4 TIMES A DAY *INSURANCE ONLY ALLOW 100 FOR 30 DAYS* blood-glucose meter (FreeStyle [place]is[place] Lite kit) As directed blood-glucose sensor (FreeStyle Holley 3 Sensor device) As directed blood-glucose sensor (Dexcom G7 Sensor device) Use daily As directed to monitor glucose. change q 10 days cholecalciferol (vitamin D3) 50 mcg PO DAILY 90 days commode As directed cyclobenzaprine 10 mg PO BEDTIME diazepam (Valium) 4 mg (2 x 2 mg) PO BEDTIME PRN 1 day diclofenac potassium 50 mg PO TID PRN 7 days gabapentin 300 mg PO TID 30 days glucagon 3 mg/actuation 3 mg intranasal ONCE PRN glucose (Dex4 Glucose) 16 grams (4 x 4 gram) PO Q15M PRN glucose (Dex4 Glucose) 16 grams (4 x 4 gram) PO Q15M PRN hydralazine 10 mg PO TID 90 days ibuprofen 600 mg PO TID PRN insulin glargine (Lantus Solostar U-100 Insulin) 20 units (0.2 mL) subcut QPM 90 days insulin regular hum U-500 conc (Humulin R U-500 (Conc) Insulin Kwikpen) 60 units before breakfast and 60 units before dinner subcut .Twice a day; 30 days lancets Use 1 lancet three times a day lancets (FreeStyle Lancets) As directed test 4 times a day lisinopril 40 mg PO DAILY lorazepam 1 mg PO BEDTIME PRN lorazepam 1 mg PO DAILY PRN metoprolol tartrate 25 mg PO BID 90 days pen needle, diabetic (1st Tier Unifine Pentips) As directed pen needle, diabetic (BD Shakila 2nd Gen Pen Needle) Twice a day polyethylene glycol 3350 (Miralax) 238 grams PO ONCE PRN 1 day topiramate 50 mg PO BEDTIME 90 days tramadol 50 mg PO Q8H PRN 30 days walker (Ultra-Light Rollator misc) As directed HPI HPI T2DM: Details: Patient is a 49-year-old female with a significant past medical history of hypertension, hyperlipidemia, anxiety, depression, morbid obesity, and uncontrolled type 2 diabetes presenting today for a diabetic follow-up. She last seen in February. Dm: A1c was 7.7. She was diagnosed around 2009. She is currently on U 500 insulin 60 in the AM and 60 in the PM and Lantus 10 units nightly. She stopped ozempic back in June following hospitalization at [facility] where she was hospitalized and intubated for hypo ventilation. It was felt that possibly Ozempic had something to do with electrolyte disturbance. It was effective for her. At our hospital follow up with PCP she was also started then on Lantus. She was previously on metformin but it did cause some GI upset. She has trialed numerous insulins without improvement. Trulicity cause nausea, vomiting and diarrhea. She states that she will check her blood sugars a couple times a day and the glucose readings are between 150 and 200. She states sometimes she does have blood sugars closer to 300. She refuses to use the CGM. CGM- states the holley falls off all of the time and she is sensitive to the tape/adhesive. At our last visit I started her on Dexcom but she states that she does not like this and does not want to wear any of them. CV: Blood pressure today in the office is 124/78. She is on amlodipine 10 mg, hydralazine 10 mg 3 times a day, metoprolol 25 mg twice a day, and lisinopril 40 mg. On atorvastatin 20 mg daily. [facility] Medical History (Updated 09/29/24 @ 13:33 by Swapna Crowe PA-C) Mild recurrent major depression Right leg pain STAN (generalized anxiety disorder) Venous insufficiency of left lower extremity GERD (gastroesophageal reflux disease) Migraine headache Vitamin D deficiency Morbid obesity Dyslipidemia Hypertension nursing home (current) use of insulin Diabetes type 2, uncontrolled (Unknown) Surgical History Hx of tubal ligation Hx of section Hx of arthroscopy of left knee Hx of cholecystectomy Family History Father COPD (chronic obstructive pulmonary disease) Mother Breast cancer Social History Housing: Apartment Alcohol intake: never Patient Tobacco Use Status: Never used Tobacco e-Cigarette/Vaping Use: Never Used Second Hand Smoke Exposure: No service: No Current occupational status: employed Current occupational exposures/hazards: No Cognitive needs: No Hearing needs: No Vision needs: No Female Reproductive History Menstrual Age of Menarche: 11 Physical Exam Vital Signs: Last Vital Signs Pulse 73 09/29/24 13:07 BP 124/78 09/29/24 13:07 Pulse Ox 98 09/29/24 13:07 Oxygen Delivery Method Room Air 09/29/24 13:07 BMI result Body Mass Index 40.1 Const Orientation/consciousness: patient oriented x3 HEENT Ears: hearing grossly normal bilaterally Neck Thyroid: Thyroid normal Lymphatic: no lymphadenopathy noted Resp Auscultation: clear to auscultation bilaterally Cardio Rate: regular rate Rhythm: regular rhythm Heart sounds: S1 normal heart sound present and S2 normal heart sound present GI Inspection: Yes normal to inspection Palpation (GI): Soft to palpation and Other GI palpation findings present (nontender, no cva tenderness) Auscultation: normoactive bowel sounds Rectal Exam - Female: deferred Skin General skin exam: no rashes or lesions noted Neuro General: patient oriented x3, gait normal and no focal motor deficits Results AMB Hemoglobin A1c AMB Hemoglobin A1c 7.7 % Last Edit by CRISTOBAL Espinosa on 09/29/24 13:22 Results Reviewed Results Reviewed: Laboratory Last Values Glucose (Clinic) 251 mg/dL (60-115) H 09/29/24 13:12 Assessment & Plan Assessment & Plan (1) Uncontrolled type 2 diabetes mellitus with hyperglycemia, with long-term current use of insulin: Code(s): E11.65 - Type 2 diabetes mellitus with hyperglycemia; Z79.4 - nursing home (current) use of insulin Category: Medical Plan: Increase Lantus to 20 units. Continue Humulin dosing. In the past I did have to decrease the Humulin dosing as she was developing symptomatic hypoglycemia. Recent hospitalization to [facility] in June resulted in discontinuation of Ozempic by PCP. Refuses CGM. I did discuss with her that this does make me very uncomfortable given the insulin that she is taking and that there is a risk for hypoglycemia and that hypoglycemia can be life-threatening. Reviewed signs and symptoms of hypoglycemia that would require emergent medical treatment. Glucose tabs in spray ordered. Short term follow up ordered. Advised patient to check blood sugars 4 times a day. (2) Dyslipidemia: Code(s): E78.5 - Hyperlipidemia, unspecified Category: Medical Plan: Recently had statin discontinued from hospitalization. She will follow up with PCP. (3) Hypertension: Code(s): I10 - Essential (primary) hypertension Category: Medical Qualifiers: Hypertension type: essential hypertension Qualified Code(s): I10 - Essential (primary) hypertension Plan: WNL. Continue current regimen Orders: Orders AMB Hemoglobin A1c Today E11.9 - Type 2 diabetes mellitus without complications Medications: New glucose (Dex4 Glucose) until symptoms of low blood sugar are controlled 16 grams (4 x 4 gram) PO Q15M PRN 100 tabs 0RF hypoglycemia glucagon 3 mg/actuation 3 mg intranasal ONCE PRN 1 ea 0RF hypoglycemia Changed From insulin glargine (Lantus Solostar U-100 Insulin) 10 units (0.1 mL) subcut QPM 90 days 9 mL 0RF To insulin glargine (Lantus Solostar U-100 Insulin) 20 units (0.2 mL) subcut QPM 90 days 18 mL 1RF From insulin regular hum U-500 conc (Humulin R U-500 (Conc) Insulin Kwikpen) 65 units before breakfast and 75 units before dinner subcut .Twice a day; 30 days 12 mL 5RF E11.65 - Type 2 diabetes mellitus with hyperglycemia To insulin regular hum U-500 conc (Humulin R U-500 (Conc) Insulin Kwikpen) 60 units before breakfast and 60 units before dinner subcut .Twice a day; 30 days 12 mL 5RF E11.65 - Type 2 diabetes mellitus with hyperglycemia Coding Level of Care Code Est Pt Level 4 (69682) Complex EM visit Add On G2211 Diagnoses Uncontrolled type 2 diabetes mellitus with hyperglycemia, with long-term current use of insulin E11.65; Z79.4 Dyslipidemia E78.5 Essential hypertension I10 Hypertension type: essential hypertension
[2024-09-29 13:16] LABS: Glucose, Whole Blood 251 mg/dL (60-115)
== END 2024-09-29 13:36 | disposition home or self-care (01) ==
LOC: HO.ENCR 13:01
PROVIDERS: PCP Internal Medicine; Visit Provider Physician Assistant
DX: E11.65 Type 2 diabetes mellitus with hyperglycemia (principal); Z79.4 Long term (current) use of insulin; E78.5 Hyperlipidemia, unspecified; I10 Essential (primary) hypertension; E11.9 Type 2 diabetes mellitus without complications

== ENCOUNTER 2024-12-04 09:16 | Outpatient (AMB) | payer OTHER, SELFPAY ==
--- NOTE | 2024-12-04 09:20 | MHC.PC.OV ---
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 Accompanied by: Spouse Allergies dulaglutide [Trulicity] Adverse Reaction (Intermediate, Verified 12/04/24 09:58) nausea,vomiting,diarrhea Medication List - Last Reconciled 12/04/24 by Marge Ordoñez MD amlodipine 10 mg PO DAILY 90 days aspirin 81 mg PO DAILY 90 days betamethasone dipropionate 0.05% 1 appl topical DAILY PRN 2 weeks blood sugar diagnostic (FreeStyle Lite Strips) DIRECTED TEST 4 TIMES A DAY *INSURANCE ONLY ALLOW 100 FOR 30 DAYS* blood-glucose meter (FreeStyle [place] Lite kit) As directed blood-glucose sensor (FreeStyle Holley 3 Sensor device) As directed blood-glucose sensor (Dexcom G7 Sensor device) Use daily As directed to monitor glucose. change q 10 days cholecalciferol (vitamin D3) 50 mcg PO DAILY 90 days commode As directed cyclobenzaprine 10 mg PO BEDTIME diazepam (Valium) 4 mg (2 x 2 mg) PO BEDTIME PRN 1 day diclofenac potassium 50 mg PO TID PRN 7 days glucagon 3 mg/actuation 3 mg intranasal ONCE PRN glucose (Dex4 Glucose) 16 grams (4 x 4 gram) PO Q15M PRN glucose (Dex4 Glucose) 16 grams (4 x 4 gram) PO Q15M PRN hydralazine 10 mg PO TID 90 days ibuprofen 600 mg PO TID PRN insulin glargine (Lantus Solostar U-100 Insulin) 20 units (0.2 mL) subcut QPM 90 days insulin regular hum U-500 conc (Humulin R U-500 (Conc) Insulin Kwikpen) 60 units before breakfast and 60 units before dinner subcut .Twice a day; 30 days lancets Use 1 lancet three times a day lancets (FreeStyle Lancets) As directed test 4 times a day lisinopril 40 mg PO DAILY lorazepam 1 mg PO BEDTIME PRN lorazepam 1 mg PO DAILY PRN metoprolol tartrate 25 mg PO BID 90 days pen needle, diabetic (1st Tier Unifine Pentips) As directed pen needle, diabetic (BD Shakila 2nd Gen Pen Needle) Twice a day polyethylene glycol 3350 (Miralax) 238 grams PO ONCE PRN 1 day pregabalin 150 mg PO BID 30 days topiramate 50 mg PO BEDTIME 90 days tramadol 50 mg PO Q8H PRN 30 days walker (Ultra-Light Rollator misc) As directed Tobacco use date assessed: 12/04/24 Dental Screening Dental Screen Date: 12/04/24 Did you have a dental visit in the last 12 months?: No Did you have a dental problem in the last 6 months where you did not have access to dental care?: No Was dental information given to patient?: Patient has dentist HPI HPI Comments History of Present Illness Details The patient is a 49-year-old female presenting for a wellness visit with a complex medical history, including essential hypertension, diabetes mellitus, and obesity. The patient has a history of good blood pressure control and concern about managing her diabetes, especially after a recent Hemoglobin A1C value of 7.7%. She reports allergies to Trulicity. The patient expressed concerns about cholesterol management, noting the absence of prescribed medications for hyperlipidemia. Moreover, she reports increased body weight and osteoarthritis of the left knee, needing further orthopedic evaluation as the pain has returned after a period of resolution post-treatment. Complains of hair loss. Also has left knee pain and has had local injections with great relief and would like referral to ortho. Family history is noteworthy for breast cancer in her mother and her father, who had a history of Chronic Obstructive Pulmonary Disease. The patient denies any personal history of colon cancer or bleeding but requests a Cologuard test as she has never had a colonoscopy. She has undergone several surgeries, including arthroscopy, which is pertinent given her current left knee pain. The patient mentions lumbar spondylosis and acknowledges the need for follow-up with a specialist for persistent knee pain. - Up-to-date Papanicolaou test done in 2022 - Mammography performed in 2021 - Tetanus vaccine updated in 2016; next due in 2026 - Recommended Cologuard test for colorectal cancer screening - Plan to include cholesterol and vitamin D testing - Emphasizing high standard diet and exercise for weight management [facility] Medical History (Updated 12/04/24 @ 12:20 by Marge Ordoñez MD) Morbid obesity Mild recurrent major depression Right leg pain STAN (generalized anxiety disorder) Venous insufficiency of left lower extremity GERD (gastroesophageal reflux disease) Migraine headache Vitamin D deficiency Dyslipidemia Hypertension 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 Diabetes type 2, uncontrolled (Unknown) Surgical History Hx of tubal ligation Hx of section Hx of arthroscopy of left knee Hx of cholecystectomy Family History (Updated 12/04/24 @ 10:04 by Marge Ordoñez MD) Father COPD (chronic obstructive pulmonary disease) Mother Breast cancer Social History Housing: Apartment Alcohol intake: never Patient Tobacco Use Status: Never used Tobacco e-Cigarette/Vaping Use: Never Used Second Hand Smoke Exposure: No service: No Current occupational status: employed Current occupational exposures/hazards: No Cognitive needs: No Hearing needs: No Vision needs: No Female Reproductive History Menstrual Age of Menarche: 11 Questionnaire PHQ-9 Over the last 2 weeks, how often have you been bothered by any of the following problems? 1. Little interest or pleasure in doing things: not at all 2. Feeling down, depressed, or hopeless: not at all 3. Trouble falling or staying asleep, or sleeping too much: not at all 4. Feeling tired or having little energy: not at all 5. Poor appetite or overeating: not at all 6. Feeling bad about yourself - or that you are a failure or have let yourself or your family down: not at all 7. Trouble concentrating on things, such as reading the newspaper or watching television: not at all 8. Moving or speaking so slowly that other people could have noticed. Or the opposite - being so fidgety or restless that you have been moving around a lot more than usual: not at all 9. Thoughts that you would be better off or of hurting yourself in some way: not at all Total score: 0 Depression Screening Interpretation: Negative Depression Screening Done: Yes 58271 - PHQ-9 Billing: Yes Source: Developed by Drs. Nikolas Tellez, Amanda Wallace, Tex Medina and colleagues, with an educational ronnell from [employer]. Thrive Questionnaire Date Thrive assessed: 12/04/24 I am a: Patient What is your living situation today?: I have a steady place to live Within the past 12 months, did the food you bought not last and you didn't have the money to get more?: Never true Within the past 12 months, did you worry whether your food would run out before you got money to buy more?: Never true Do you have trouble paying for medicines?: No Do you have trouble getting transportation to medical appointments?: No Do you have trouble paying your heating and electricity bill?: No Do you have trouble taking care of your child, family member or friend?: No Do you have trouble with day-to-day activities such as bathing, preparing meals, shopping, managing finances, etc.?: No Are you currently unemployed and looking for a job?: No Are you interested in more education?: No Please select the resources that you would like help with: None Currently or been in a relationship where the following occur: I choose not to answer THRIVE Score: 0 AUDIT C Alcohol Use Questionnaire (AUDIT-C) 1. How often do you have a drink containing alcohol?: Never Total Score: 0 Score Reviewed/Action Taken: No STAN-7 AMB Questionnaire STAN-7 Date STAN - 7 assessed: 12/04/24 Feeling nervous, anxious, or on edge: 0 = Not at all Not being able to stop or control worryin = Not at all Worrying too much about different things: 0 = Not at all Trouble relaxin = Not at all Being so restless that it is hard to sit still: 0 = Not at all Becoming easily annoyed or irritable: 0 = Not at all Feeling afraid as if something awful might happen: 0 = Not at all Total STAN-7 score (0-4 normal; 5-9 mild; 10-14 moderate; 15-21 severe): 0 Source: Developed by Drs. Nikolas Tellez, Amanda Wallace, Tex Medina and colleagues, with an educational ronnell from [employer]. Review of Systems Const All systems reviewed & are unremarkable except as noted in HPI and below Card Denies chest pain at rest, Denies chest pain with activity, Denies edema, Denies irregular heart rhythm, Denies claudication, Denies dyspnea, Denies dyspnea on exertion, Denies orthopnea, Denies paroxysmal nocturnal dyspnea and Denies slow heart rate Resp Denies cough, Denies dyspnea and Denies dyspnea on exertion GI Denies abdominal pain, Denies change in bowel habits, Denies excessive flatus, Denies nausea and Denies vomiting Physical exam (Primary Care) Vital Signs: Last Vital Signs BP 138/86 12/04/24 09:21 BMI result Body Mass Index 42.4 BMI Assessment/Plan discussion: High BMI High, discussed plan: lifestyle, weight reduction, dietary and physical activity Tobacco/Smoking Status: Tobacco use Status Tobacco use date assessed 12/04/24 12/04/24 09:28 Patient Tobacco Use Status Never used Tobacco 12/04/24 09:24 e-Cigarette/Vaping Use Never Used 12/04/24 09:24 PHQ-9: PHQ-9 Score PHQ-9: Total score 0 12/04/24 10:04 Depression Screening Interpretation: Negative Thrive Assessment: Date of Thrive Assessment Date Thrive assessed 12/04/24 12/04/24 09:24 Currently or been in a relationship where the following occur: I choose not to answer HENMO Head: Yes normal to inspection, Yes normocephalic and Yes atraumatic Ears: external ears normal Eyes General: appearance normal, both eyes and all related structures Eyelids: Yes eyelids normal Conjunctivae: conjunctivae normal Neck Neck: Yes normal visual inspection and Yes supple Resp Effort & Inspection: normal respiratory effort Auscultation: clear to auscultation bilaterally Cardio Jugular venous distension: no JVD Rate: regular rate Rhythm: regular rhythm Heart sounds: S1 normal heart sound present and S2 normal heart sound present GI Inspection: Yes normal to inspection Palpation (GI): Soft to palpation and nontender Auscultation: normal bowel sounds Skin General skin exam: no rashes or lesions noted Neuro General: no focal motor deficits Extrem General: Yes full ROM Psych Appearance: grossly normal Coding Level of Care Code Est Pt Level 3 (29169) Est Pt Prev Care 40-64y(15792) Diagnoses Physical exam Z00.00 Left knee pain M25.562 Hair loss L65.9 Mild recurrent major depression F33.0 Morbid obesity E66.01 Additional Codes PHQ-9 - 06744 - PHQ-9 Billing: Yes ([id number]) Time Spent (min) 35 Assessment & Plan Assessment & Plan (1) Physical exam: Code(s): Z00.00 - Encounter for general adult medical examination without abnormal findings Category: Medical (2) Left knee pain: Code(s): M25.562 - Pain in left knee Category: Medical (3) Hair loss: Code(s): L65.9 - Nonscarring hair loss, unspecified Category: Medical (4) Mild recurrent major depression: Code(s): F33.0 - Major depressive disorder, recurrent, mild Category: Medical (5) Morbid obesity: Code(s): E66.01 - Morbid (severe) obesity due to excess calories Category: Medical Plan I will continue antihypertensive and antihyperglycemic therapy with current medications, excluding Trulicity due to adverse effects. The patient will undergo lab tests to include cholesterol and vitamin D assessments, given the absence of recent evaluations. A structured diet and exercise plan focusing on weight management is encouraged. I will send the Cologuard test for colorectal cancer screening per the patient's preference. I plan to coordinate with an orthopedic brace maker for thorough assessment and management of her left knee due to osteoarthritis, which has shown recurrent symptoms. Regular follow-up visits will be scheduled to monitor her progress on these interventions. Patient was informed and verbally consented to the use of an ambient scribe for clinic note documentation during this visit. We discussed the patient's hypertension and diabetes management, with an emphasis on monitoring blood pressure and glucose levels. The adverse effects of Trulicity were addressed, and alternative strategies were considered. The importance of updating cholesterol and vitamin D lab assessments was reviewed, and the necessity of addressing weight issues through diet and exercise was reinforced. The patient was informed about the need to screen for colorectal cancer using the Cologuard test, given her family history. The benefits of consulting an orthopedic brace maker for recurring knee pain were conveyed, and we established a plan for further evaluation. The patient was advised on ongoing lifestyle modifications and the importance of regular follow-up appointments to ensure comprehensive management of her health concerns. Orders: Orders Comprehensive [place]. Panel Fast Today E11.65 - Type 2 diabetes mellitus with hyperglycemia, Z79.4 - shelter (current) use of insulin Thyroid Stimulating Hormone Today L65.9 - Nonscarring hair loss, unspecified MM tomosynthesis screening BI Today Z12.31 - Encounter for screening mammogram for malignant neoplasm of breast Vitamin D 25-OH Total Today E55.9 - Vitamin D deficiency, unspecified Vitamin B12 and Folate Today E53.8 - Deficiency of other specified B group vitamins Lipid Panel Today E78.5 - Hyperlipidemia, unspecified Microalbumin, Random (w Creat) Today R80.9 - Proteinuria, unspecified Referrals Cologuard Test Z12.11 - Encounter for screening for malignant neoplasm of colon, Z12.12 - Encounter for screening for malignant neoplasm of rectum Orthopedics Referral M25.562 - Pain in left knee Patient Instructions: - Continue to take medications as prescribed. - Avoid Trulicity due to previous adverse reaction. - Complete lab tests for cholesterol and vitamin D as scheduled. - Engage in regular physical activity and follow dietary recommendations to help manage weight. - Submit Cologuard test for colorectal cancer screening. - Schedule an appointment with the orthopedic brace maker for knee evaluation. - Follow up with me for ongoing management and monitoring. - Report any new or worsening symptoms promptly.
[2024-12-04 09:21] VITALS: BP 138/86; BMI 42.4
== END 2024-12-04 10:12 | disposition home or self-care (01) ==
LOC: HO.HMCH 09:17
PROVIDERS: PCP Internal Medicine; Visit Provider Internal Medicine
DX: Z00.00 Encounter for general adult medical examination without abnormal findings (principal); M25.562 Pain in left knee; E66.01 Morbid (severe) obesity due to excess calories; Z68.41 Body mass index [BMI] 40.0-44.9, adult; L65.9 Nonscarring hair loss, unspecified; F33.0 Major depressive disorder, recurrent, mild

== ENCOUNTER → 2024-12-04 09:16 | Outpatient (BNVA) | payer OTHER, SELFPAY | PROVIDERS: PCP Internal Medicine; Visit Provider Internal Medicine | DX: Z00.00 Encounter for general adult medical examination without abnormal findings (principal); M25.562 Pain in left knee; L65.9 Nonscarring hair loss, unspecified; F33.0 Major depressive disorder, recurrent, mild; E66.01 Morbid (severe) obesity due to excess calories; Z68.41 Body mass index [BMI] 40.0-44.9, adult; I10 Essential (primary) hypertension; E11.9 Type 2 diabetes mellitus without complications | CPT/HCPCS: 96127; 99212; 99396 ==

== ENCOUNTER 2024-12-07 09:13 | Outpatient (AMB) | payer OTHER, SELFPAY ==
--- NOTE | 2024-12-07 07:13 | A.OFFVIS_ITS ---
Vital Signs 12/07/24 09:16 Height 5 ft 7.8 in Weight 277 lb 12.519 oz BMI 42.5 BP 120/78 Blood Pressure Location Rt brachial Position Sitting Pulse 85 Pulse Source Pulse Oximeter Pulse Oximetry (%) 98 Oxygen Delivery Method Room Air Intake Visit Reasons: dm adjustment Intake Note: Patient presents today for a follow-up on Type 2 Diabetes Mellitus: Last Diabetic eye exam was on: OVER 3 YEARS DUE Last Podiatry exam was on: Patient does not see a Lightout Examiner Most recent HbA1c: 7.7%, 09/29/2024 Random Glucose- 152 mg/dL, Today Hand Shaper Required: No Accompanied by: Self / Same As Patient Allergies dulaglutide [Trulicity] Adverse Reaction (Intermediate, Verified 12/07/24 09:17) nausea,vomiting,diarrhea HPI Comments Details: 49-year-old female, here today for follow-up of insulin resistant type 2 diabetes. She was last seen 09/29/24 by Jennifer Crowe PA an A1c of 7.7%. Type 2 diabetes diagnosed approximate 2009 She is intolerant to Ozempic which was discontinued earlier this year when she was hospitalized with abd pain Tried Afrezza in the past intolerance, metformin: Current diabetes medications: Humulin U500 60 before breakfast Humulin U500 60 before supper Lantus 20 units at HS She has refused CGM in the past despite recommendations. Today she states her primary concern is that the sensors kept falling off. She was not placing them in the correct area of her arm. Has retinopathy: Overdue for Ophthalmology evaluation. Last visit, no need for photocoagulation or VEGF therapy Has nephropathy; 08/03/2024 eGFR>60 10/18/2023 microalbumin 110 on gregoria-I Has neuropathy: on lyrica 150mg bid has hands feet HLD: No recent check she has order to obtain through PCP Denies history of CAD Denies symptoms of chest pain, dyspnea or claudication. 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 Diabetes type 2, uncontrolled (Unknown) Surgical History Hx of tubal ligation Hx of section Hx of arthroscopy of left knee Hx of cholecystectomy Family History Father COPD (chronic obstructive pulmonary disease) Mother Breast cancer Social History Housing: Apartment Alcohol intake: never Patient Tobacco Use Status: Never used Tobacco e-Cigarette/Vaping Use: Never Used Second Hand Smoke Exposure: No service: No Current occupational status: employed Current occupational exposures/hazards: No Cognitive needs: No Hearing needs: No Vision needs: No Female Reproductive History Menstrual Age of Menarche: 11 Physical Exam Vital Signs: Last Vital Signs Pulse 85 12/07/24 09:16 BP 120/78 12/07/24 09:16 Pulse Ox 98 12/07/24 09:16 Oxygen Delivery Method Room Air 12/07/24 09:16 BMI result Body Mass Index 42.5 Const Other: Absence of Cushingoid features. Absence of acromegalic features. Neck exam reveals nl size thyroid about 15 gms. No thyroid nodules palpable. Heart S1 S2, Reg R/R. No M/R G. Skin exam reveals absence of vitiligo or acanthosis nigricans. No edema Visual exam of foot performed. No ulcerations or open lesions. No inter digit maceration or fissuring. No onychomycosis, no callouses. Sensation intact to monofilament exam. Vibratory sensation is normal with 128 Hz tuning fork. Some discomfort to palpation. 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 We had an in-depth conversation on the need to go on a glucose sensor given that she is on high potency insulin. Her reluctance in the past has been related to frequently falling off sensors. The freestyle 3+ is much smaller. She was asked to come in for training with the health promotion educator. She was also asked when she places the sensor to place her hand on top of the head on the arm she will be placing the sensor on and this will expose the proper surface for her to place the sensor on. Continue current medication for now. Ozempic had been discontinued earlier in the year secondary to a hospital stay for abdominal pain which was felt that the Ozempic may have triggered this. Have lipid profile done through PCP. The patient had an opportunity to ask questions regarding treatment plan. The patient expressed understanding and agreement with the above treatment plan. The patient is aware they should contact our office by phone for worsening glucose readings or for any low blood sugars which may warrant a change in diabetes medication. Compliance is encouraged with medications and any followup testing/consults which may have been ordered. (2) Neuropathy: Code(s): G62.9 - Polyneuropathy, unspecified Category: Medical Plan: She is on Lyrica through her PCP. Foot care reviewed. Would recommend LICHA to rule out PVD per [place] [employer] recommendations. (3) Peripheral Vascular Disease: Code(s): I73.9 - Peripheral vascular disease, unspecified Plan: Obtain LICHA Orders: Orders US LICHA complete Today I73.9 - Peripheral vascular disease, unspecified Medications: New FreeStyle Holley 3 Plus Sensor (blood-glucose sensor) every 15 days 2 ea 11RF NS FreeStyle Holley 3 Plus Sensor (blood-glucose sensor) every 15 days 2 ea 11RF NS FreeStyle Holley 3 [place] (blood-glucose,assessment clinician,cont) As directed for use with sensor 1 ea 0RF NS E11.9 - Type 2 diabetes mellitus without complications FreeStyle Holley 3 [place] (blood-glucose,assessment clinician,cont) As directed for use with sensor 1 ea 0RF NS E11.9 - Type 2 diabetes mellitus without complications Discontinued blood-glucose sensor (FreeStyle Holley 3 Sensor device) Discontinued Reason: Duplicate As directed 2 ea 11RF E11.65 - Type 2 diabetes mellitus with hyperglycemia blood-glucose sensor (Dexcom G7 Sensor device) Discontinued Reason: Duplicate Use daily As directed to monitor glucose. 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
[2024-12-07 09:16] VITALS: BP 120/78; PULSE 85; O2SAT 98; BMI 42.5
[2024-12-07 09:27] LABS: Glucose, Whole Blood 152 mg/dL (60-115)
== END 2024-12-07 09:40 | disposition home or self-care (01) ==
LOC: HO.ENCR 09:14
PROVIDERS: PCP Internal Medicine; Visit Provider Nurse Practitioner Adult Health
DX: E11.65 Type 2 diabetes mellitus with hyperglycemia (principal); Z79.4 Long term (current) use of insulin; G62.9 Polyneuropathy, unspecified; I73.9 Peripheral vascular disease, unspecified
CPT/HCPCS: 99214; G2211

== ENCOUNTER → 2024-12-07 09:13 | Outpatient (BNVA) | payer OTHER, SELFPAY | PROVIDERS: PCP Internal Medicine; Visit Provider Nurse Practitioner Adult Health | DX: E11.65 Type 2 diabetes mellitus with hyperglycemia (principal); E11.51 Type 2 diabetes mellitus with diabetic peripheral angiopathy without gangrene; E11.40 Type 2 diabetes mellitus with diabetic neuropathy, unspecified; Z79.4 Long term (current) use of insulin | CPT/HCPCS: 82947; 99212 ==

== ENCOUNTER → 2024-12-18 13:30 | Outpatient (BNV) | payer OTHER, SELFPAY | PROVIDERS: PCP Internal Medicine; Visit Provider Internal Medicine | DX: Z12.31 Encounter for screening mammogram for malignant neoplasm of breast (principal) | CPT/HCPCS: 77063; 77067 ==

== ENCOUNTER 2024-12-18 13:31 | Outpatient (REF) | payer OTHER, SELFPAY | END 2024-12-18 13:32 | disposition home or self-care (01) | LOC: HO.MAMMO 13:31 | PROVIDERS: PCP Internal Medicine; Visit Provider Internal Medicine | DX: Z12.31 Encounter for screening mammogram for malignant neoplasm of breast (principal) | CPT/HCPCS: 77063; 77067 ==

== ENCOUNTER 2025-01-09 10:43 | Outpatient (AMB) | payer OTHER, SELFPAY ==
--- NOTE | 2025-01-09 11:02 | MHC.AMDMED ---
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 Diabetes type 2, uncontrolled (Unknown) Surgical History Hx of tubal ligation Hx of section Hx of arthroscopy of left knee Hx of cholecystectomy Family History Father COPD (chronic obstructive pulmonary disease) Mother Breast cancer Social History Housing: Apartment Alcohol intake: never Patient Tobacco Use Status: Never used Tobacco e-Cigarette/Vaping Use: Never Used Second Hand Smoke Exposure: No service: No Current occupational status: employed Current occupational exposures/hazards: No Cognitive needs: No Hearing needs: No Vision needs: No Female Reproductive History Menstrual Age of Menarche: 11 Assessment & Plan Assessment & Plan (1) Uncontrolled type 2 diabetes mellitus with hyperglycemia, with long-term current use of insulin: Code(s): E11.65 - Type 2 diabetes mellitus with hyperglycemia; Z79.4 - meterman (current) use of insulin Plan: Patient at visit to set up an Farelogix Holley 3+ with [place] Instructed patient sensors water proof you can shower, or swim do not submerge sensor in water for over 30 minutes Is sensor falls off cannot put back in you need to replace sensor, customer service number given to patient for sensor replacement Sensor placed on the back of Right arm Patient left visit with sensor in warmup Reviewed how to interpret trend arrows Discussed lag time between finger stick and sensor data.? Instructed patient the importance of having blood glucometer for backup testing if needed Reviewed delay of CGM from fingersticks Reminded Pt that if symptoms do not match sensor still needs to check fingersticks. Portions of this note were created using voice recognition software, please excuse any words or phrases that may have been misinterpreted. Patient Instructions: Patient instruction: CGM provides information on blood glucose control throughout the day, including hyperglycemia and hypoglycemia. ? Continue to monitor blood glucose as instructed. Follow nutrition guidelines provided. Report any discomfort promptly to health care provider. ?Stay well-hydrated. You can bathe ,shower, swim and exercise while wearing the glucose sensor. Do not submerge glucose sensor in water for more than 30 minutes. Instrucciones para el paciente: CGM proporciona informaci?n sobre el control de la glucosa en [place] a lo ron del d?a, incluidas la hiperglucemia y la hipoglucemia. Contin?e controlando la glucosa en [place] seg?n las instrucciones. Siga las pautas de nutrici?n proporcionadas. Informe cualquier molestia de inmediato al proveedor de atenci?n m?dica. Mantente angélica hidratado. Puede ba?arse, ducharse, nadar y hacer ejercicio mientras usa el sensor de glucosa. No sumerja el sensor de glucosa en agua tee m?s de 30 minutos. Retire el sensor para jennifer resonancia magn?sol o jennifer tomograf?a computarizada. Evite la m?quina de michaela X en los aeropuertos: retire el sensor o solicite la varita Coding Level of Care Code Est Pt Level 1 (64229) Diagnoses Uncontrolled type 2 diabetes mellitus with hyperglycemia, with long-term current use of insulin E11.65; Z79.4
== END 2025-01-09 11:03 | disposition home or self-care (01) ==
LOC: HO.ENCR 10:44
PROVIDERS: PCP Internal Medicine; Visit Provider Registered Nurse Diabetes Educator
DX: E11.65 Type 2 diabetes mellitus with hyperglycemia (principal); Z79.4 Long term (current) use of insulin

== ENCOUNTER → 2025-01-09 10:43 | Outpatient (BNVA) | payer OTHER, SELFPAY | PROVIDERS: PCP Internal Medicine; Visit Provider Registered Nurse Diabetes Educator | DX: E11.65 Type 2 diabetes mellitus with hyperglycemia (principal); Z79.4 Long term (current) use of insulin | CPT/HCPCS: 99211 ==

== ENCOUNTER 2025-01-16 09:08 | Outpatient (REF) | payer OTHER, SELFPAY ==
[2025-01-16 11:24] LABS: Alanine Aminotransferase 33 U/L (0-31); Albumin Level 4.0 g/dL (3.5-5.0); Alkaline Phosphatase 86 U/L (39-117); Anion Gap 16 (12-20); Aspartate Amino Transferase 24 U/L (5-31); Blood Urea Nitrogen 16 mg/dL (9-16); Calcium 9.2 mg/dL (8.4-10.2); Carbon Dioxide 20 mmol/L (22-29); Chloride 105 mmol/L (96-108); Cholesterol 344 mg/dL (<200); Estimated Glomerular Filt Rate > 60; HDL Cholesterol 30 mg/dL (>40); Potassium 3.7 mmol/L (3.3-5.1); Sodium 137 mmol/L (135-145); Total Protein 7.8 g/dL (6.5-8.0); Triglycerides 1355 mg/dL (<150); Uric Acid 6.6 mg/dL (2.4-5.7)
[2025-01-16 11:27] LABS: Microalbum/Creatinine Ratio Ur 12.0 ug/mg cr (<30)
[2025-01-16 11:38] LABS: Thyroid Stimulating Hormone 0.96 uIU/mL (0.32-4.0)
[2025-01-16 11:40] LABS: Folate 11.2 ng/mL (> or = 4.0); Vitamin B12 214 pg/mL (200-900)
== END 2025-01-16 09:09 | disposition home or self-care (01) ==
LOC: HO.LAB 09:08
PROVIDERS: PCP Internal Medicine; Visit Provider Internal Medicine
DX: E11.65 Type 2 diabetes mellitus with hyperglycemia (principal); Z79.4 Long term (current) use of insulin; E78.5 Hyperlipidemia, unspecified; R80.9 Proteinuria, unspecified; L65.9 Nonscarring hair loss, unspecified; M10.9 Gout, unspecified; E53.8 Deficiency of other specified B group vitamins; E55.9 Vitamin D deficiency, unspecified
CPT/HCPCS: 36415; 80053; 80061; 82043; 82306; 82570; 82607; 82746; 84443; 84550

== ENCOUNTER 2025-01-23 10:59 | Outpatient (AMB) | payer OTHER, SELFPAY ==
--- NOTE | 2025-01-23 11:00 | A.OFFVIS_ITS ---
Vital Signs 01/23/25 11:06 Height 5 ft 7.8 in Weight 287 lb 4.197 oz BMI 43.9 BP 130/72 Blood Pressure Location Rt brachial Position Sitting Pulse 100 Pulse Source Pulse Oximeter Pulse Oximetry (%) 96 Oxygen Delivery Method Room Air Intake Visit Reasons: T2DM, elevated blood sugars Intake Note: Patient present today to follow up on Type 2 Diabetes Mellitus. Last Diabetic Eye exam: Due, Over 3 years ago. Requesting Referral Last Podiatry Visit: Does not see a Director Of Collections Random Glucose: 312 mg/dl HgA1C: 9.7% 01/23/2025 Protein Scientist Required: No Accompanied by: Self / Same As Patient Allergies dulaglutide (Trulicity) Adverse Reaction (Intermediate, Verified 01/23/25 11:07) nausea,vomiting,diarrhea Medication List - Last Reconciled 01/23/25 by Nikolas Calero MD amlodipine 10 mg PO DAILY 90 days aspirin 81 mg PO DAILY 90 days atorvastatin (Lipitor) 40 mg PO BEDTIME 90 days betamethasone dipropionate 0.05% 1 appl topical DAILY PRN 2 weeks blood sugar diagnostic (FreeStyle Lite Strips) DIRECTED TEST 4 TIMES A DAY *INSURANCE ONLY ALLOW 100 FOR 30 DAYS* blood-glucose meter (FreeStyle [place] Lite kit) As directed cholecalciferol (vitamin D3) 50 mcg PO DAILY 90 days commode As directed cyclobenzaprine 10 mg PO BEDTIME diazepam (Valium) 4 mg (2 x 2 mg) PO BEDTIME PRN 1 day diclofenac potassium 50 mg PO TID PRN 7 days FreeStyle Holley 3 Plus Sensor (blood-glucose sensor) every 15 days NS FreeStyle Holley 3 [place] (blood-glucose,financial service professional,cont) As directed for use with sensor NS glucagon 3 mg/actuation 3 mg intranasal ONCE PRN glucose (Dex4 Glucose) 16 grams (4 x 4 gram) PO Q15M PRN glucose (Dex4 Glucose) 16 grams (4 x 4 gram) PO Q15M PRN hydralazine 10 mg PO TID 90 days ibuprofen 600 mg PO TID PRN insulin glargine (Lantus Solostar U-100 Insulin) 20 units (0.2 mL) subcut QPM 90 days insulin regular hum U-500 conc (Humulin R U-500 (Conc) Insulin Kwikpen) 60 units before breakfast and 60 units before dinner subcut .Twice a day; 30 days lancets Use 1 lancet three times a day lancets (FreeStyle Lancets) As directed test 4 times a day lisinopril 40 mg PO DAILY lorazepam 1 mg PO BEDTIME PRN lorazepam 1 mg PO DAILY PRN metoprolol tartrate 25 mg PO BID 90 days pen needle, diabetic (1st Tier Unifine Pentips) As directed pen needle, diabetic (BD [place]ila 2nd Gen Pen Needle) Twice a day polyethylene glycol 3350 (Miralax) 238 grams PO ONCE PRN 1 day pregabalin 150 mg PO BID 30 days topiramate 50 mg PO BEDTIME 90 days tramadol 50 mg PO Q8H PRN 30 days walker (Ultra-Light Rollator misc) As directed HPI Comments Details: 49-year-old female, here today for follow-up of insulin resistant type 2 diabetes. She was last seen by Ann Locke NP on 12/07/24 Type 2 diabetes diagnosed approximate 2009 She is intolerant to Ozempic which was discontinued earlier this year when she was hospitalized with abd pain Tried Afrezza in the past intolerance, metformin: Current diabetes medications: Humulin U500 65 before breakfast Humulin U500 65 before supper Lantus 20 units at HS She has refused CGM in the past despite recommendations. Today she states her primary concern is that the sensors kept falling off. She is willing to reinitiate using an over patch Review of her the glucometer download shows she is checking her point of care once a day. Range of blood sugar is 189-435 with average glucose of 302. 100% hyperglycemia and no hypoglycemia Has retinopathy: Last visit 1 mo ago no need for photocoagulation or VEGF therapy Has nephropathy; 08/03/2024 eGFR>60 10/18/2023 microalbumin 110 on vern-I Has neuropathy: on lyrica 150mg bid has hands feet HLD: No recent check she has order to obtain through PCP Denies history of CAD Denies symptoms of chest pain, dyspnea or claudication. 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 Diabetes type 2, uncontrolled (Unknown) Surgical History Hx of tubal ligation Hx of section Hx of arthroscopy of left knee Hx of cholecystectomy Family History Father COPD (chronic obstructive pulmonary disease) Mother Breast cancer Social History Housing: Apartment Alcohol intake: never Patient Tobacco Use Status: Never used Tobacco e-Cigarette/Vaping Use: Never Used Second Hand Smoke Exposure: No service: No Current occupational status: employed Current occupational exposures/hazards: No Cognitive needs: No Hearing needs: No Vision needs: No Female Reproductive History Menstrual Age of Menarche: 11 Physical Exam Vital Signs: Last Vital Signs Pulse 100 01/23/25 11:06 BP 130/72 01/23/25 11:06 Pulse Ox 96 01/23/25 11:06 Oxygen Delivery Method Room Air 01/23/25 11:06 BMI result Body Mass Index 43.9 Absence of Cushingoid features. Absence of acromegalic features. Neck exam reveals nl size thyroid about 15 gms. No thyroid nodules palpable. No carotid bruits present. Lungs CTA. Heart S1 S2, Reg R/R. No M/R/ G. Skin exam reveals absence of vitiligo or acanthosis nigricans. Abdominal exam reveals Soft NT/ND with NA BS. No organomegaly present. Neck Other: . Extrem Other: Visual exam of foot performed. No ulcerations or open lesions. No onchomycosis, no callouses.Pulses 2 + distally Sensation intact to monofilament exam. Vibratory sensation sensed is intact with 128 Hz tuning fork Results AMB Hemoglobin A1c AMB Hemoglobin A1c 9.7 % Last Edit by CRISTOBAL Cameron on 01/23/25 11:22 Results Reviewed Results Reviewed: Laboratory Last Values Glucose (Clinic) 312 mg/dL (60-115) H 01/23/25 11:12 Hgb A1c (Clinic) 9.7 % (4.0-6.0) H 01/23/25 11:16 Assessment & Plan Assessment & Plan (1) Diabetes type 2, uncontrolled: Onset Date: Unknown Code(s): E11.65 - Type 2 diabetes mellitus with hyperglycemia Category: Medical Qualifiers: Glycemic state: with hyperglycemia Qualified Code(s): E11.65 - Type 2 diabetes mellitus with hyperglycemia Plan: This is a 48-year-old female with history of type 2 diabetes being treated with U-500 insulin , Lantus and metformin with poor glycemic control and known microvascular complications namely retinopathy. Plan is to have the patient reinitiate the sensor Holley 3 with reader. We will also have patient use an over patch to prevent falling off. We will initiate Mounjaro 2.5 mg Q weekly as patient was intolerant to other G LP -1including Ozempic . Went over side effects of Mounjaro including but not limited to nausea, vomiting and rare risk of pancreatitis Once again, stressed the importance of using the sensor particularly with the U-500 insulin and risk for hypoglycemia as well as to better glycemic control . Went over relationship poor glycemic control to development and progression complication. Orders: Orders AMB Hemoglobin A1c Today E11.65 - Type 2 diabetes mellitus with hyperglycemia, Z79.4 - residential (current) use of insulin Referrals Ophthalmology Referral E11.9 - Type 2 diabetes mellitus without complications Medications: New Mounjaro (tirzepatide) for 4 weeks 2.5 mg (0.5 mL) subcut QWEEK 2 mL 5RF NS Coding Level of Care Code Est Pt Level 4 (25907) Diagnoses Uncontrolled type 2 diabetes mellitus with hyperglycemia E11.65 Glycemic state: with hyperglycemia
[2025-01-23 11:06] VITALS: BP 130/72; PULSE 100; O2SAT 96; BMI 43.9
[2025-01-23 11:16] LABS: Glucose, Whole Blood 312 mg/dL (60-115)
== END 2025-01-23 11:47 | disposition home or self-care (01) ==
LOC: HO.ENCR 11:00
PROVIDERS: PCP Internal Medicine; Visit Provider Internal Medicine Endocrinology, Diabetes & Metabolism
DX: E11.65 Type 2 diabetes mellitus with hyperglycemia (principal); Z79.4 Long term (current) use of insulin
CPT/HCPCS: 99214

== ENCOUNTER → 2025-01-23 10:59 | Outpatient (BNVA) | payer OTHER, SELFPAY | PROVIDERS: PCP Internal Medicine; Visit Provider Internal Medicine Endocrinology, Diabetes & Metabolism | DX: E11.65 Type 2 diabetes mellitus with hyperglycemia (principal); Z79.4 Long term (current) use of insulin | CPT/HCPCS: 82947; 83036; 99212 ==

== ENCOUNTER 2025-01-24 08:18 | Outpatient (REF) | payer OTHER, SELFPAY | END 2025-01-24 08:19 | disposition home or self-care (01) | LOC: HO.HOSX 08:18 | PROVIDERS: Visit Provider Physician Assistant | DX: Z13.89 Encounter for screening for other disorder (principal) ==

== ENCOUNTER 2025-03-01 11:01 | Outpatient (AMB) | payer OTHER, SELFPAY ==
--- NOTE | 2025-03-01 11:04 | A.OFFVIS_ITS ---
Vital Signs 03/01/25 11:08 Height 5 ft 7.8 in Weight 285 lb 7.978 oz BMI 43.7 BP 106/64 Blood Pressure Location Rt brachial Position Sitting Pulse 89 Pulse Source Pulse Oximeter Pulse Oximetry (%) 97 Oxygen Delivery Method Room Air Intake Visit Reasons: T2DM Intake Note: Patient present today to follow up on Type 2 Diabetes Mellitus. Last Diabetic Eye exam: Due, Has an appointment April 2025 Last Podiatry Visit: Does not see a Steak Sauce Maker Random Glucose: 332 mg/dl HgA1C: 9.7% 01/23/2025 Radiotelephone Technical Operator Required: No Accompanied by: Self / Same As Patient Allergies dulaglutide (Trulicity) Adverse Reaction (Intermediate, Verified 03/01/25 11:09) nausea,vomiting,diarrhea Medication List - Last Reconciled 03/01/25 by Nikolas Caelro MD amlodipine 10 mg PO DAILY 90 days aspirin 81 mg PO DAILY 90 days atorvastatin (Lipitor) 40 mg PO BEDTIME 90 days betamethasone dipropionate 0.05% 1 appl topical DAILY PRN 2 weeks blood sugar diagnostic (FreeStyle Lite Strips) DIRECTED TEST 4 TIMES A DAY *INSURANCE ONLY ALLOW 100 FOR 30 DAYS* blood-glucose meter (FreeStyle [place] Lite kit) As directed cholecalciferol (vitamin D3) 50 mcg PO DAILY 90 days commode As directed cyclobenzaprine 10 mg PO BEDTIME diazepam (Valium) 4 mg (2 x 2 mg) PO BEDTIME PRN 1 day diclofenac potassium 50 mg PO TID PRN 7 days FreeStyle Holley 3 Plus Sensor (blood-glucose sensor) every 15 days NS FreeStyle Holley 3 Enterprise (blood-glucose,medical nurse,cont) As directed for use with sensor NS glucagon 3 mg/actuation 3 mg intranasal ONCE PRN glucose (Dex4 Glucose) 16 grams (4 x 4 gram) PO Q15M PRN glucose (Dex4 Glucose) 16 grams (4 x 4 gram) PO Q15M PRN hydralazine 10 mg PO TID 90 days ibuprofen 600 mg PO TID PRN insulin glargine (Lantus Solostar U-100 Insulin) 20 units (0.2 mL) subcut QPM 90 days insulin regular hum U-500 conc (Humulin R U-500 (Conc) Insulin Kwikpen) 60 units before breakfast and 60 units before dinner subcut .Twice a day; 30 days lancets Use 1 lancet three times a day lancets (FreeStyle Lancets) As directed test 4 times a day lisinopril 40 mg PO DAILY lorazepam 1 mg PO BEDTIME PRN lorazepam 1 mg PO DAILY PRN metoprolol tartrate 25 mg PO BID 90 days Mounjaro (tirzepatide) 2.5 mg (0.5 mL) subcut QWEEK NS pen needle, diabetic (1st Tier Unifine Pentips) As directed pen needle, diabetic (BD Shakila 2nd Gen Pen Needle) Twice a day polyethylene glycol 3350 (Miralax) 238 grams PO ONCE PRN 1 day pregabalin 150 mg PO BID 30 days topiramate 50 mg PO BEDTIME 90 days tramadol 50 mg PO Q8H PRN 30 days walker (Ultra-Light Rollator misc) As directed HPI Comments Details: 49-year-old female, here today for follow-up of insulin resistant type 2 diabetes. She was last seen by Ann Locke NP on 12/07/24 Type 2 diabetes diagnosed approximate 2009 She is intolerant to Ozempic which was discontinued earlier this year when she was hospitalized with abd pain Tried Afrezza in the past intolerance, metformin: Current diabetes medications: Humulin U500 65 before breakfast Humulin U500 65 before supper Lantus 20 units at HS Mounjaro 2.5 mg Qwkly She has refused CGM in the past despite recommendations. Today she states her primary concern is that the sensors kept falling off. She is willing to reinitiate using an over patch Review of her the glucometer download shows she is checking her point of care once a day. Range of blood sugar is 218-347 with average glucose of 286. 100% hyperglycemia and no hypoglycemia Has retinopathy: Last visit 1 mo ago no need for photocoagulation or VEGF therapy Has nephropathy; 08/03/2024 eGFR>60 10/18/2023 microalbumin 110 on vern-I Has neuropathy: on lyrica 150mg bid has hands feet HLD: No recent check she has order to obtain through PCP Denies history of CAD Denies symptoms of chest pain, dyspnea or claudication. Diet: Last seen by nutrition 03/2024 Weight: DM education: Last seen 11/2023 [facility] Medical History (Updated 12/07/24 @ 09:44 by Ann Atkinson NP) Neuropathy Morbid obesity Mild recurrent major depression Right leg pain STAN (generalized anxiety disorder) Venous insufficiency of left lower extremity GERD (gastroesophageal reflux disease) Migraine headache Vitamin D deficiency Dyslipidemia Hypertension nursing home (current) use of insulin Diabetes type 2, uncontrolled (Unknown) Surgical History Hx of tubal ligation Hx of section Hx of arthroscopy of left knee Hx of cholecystectomy Family History Father COPD (chronic obstructive pulmonary disease) Mother Breast cancer Social History Housing: Apartment Alcohol intake: never Patient Tobacco Use Status: Never used Tobacco e-Cigarette/Vaping Use: Never Used Second Hand Smoke Exposure: No service: No Current occupational status: employed Current occupational exposures/hazards: No Cognitive needs: No Hearing needs: No Vision needs: No Female Reproductive History Menstrual Age of Menarche: 11 Physical Exam Vital Signs: Last Vital Signs Pulse 89 03/01/25 11:08 BP 106/64 03/01/25 11:08 Pulse Ox 97 03/01/25 11:08 Oxygen Delivery Method Room Air 03/01/25 11:08 BMI result Body Mass Index 43.7 Absence of Cushingoid features. Absence of acromegalic features. Neck exam reveals nl size thyroid about 15 gms. No thyroid nodules palpable. No carotid bruits present. Lungs CTA. Heart S1 S2, Reg R/R. No M/R/ G. Skin exam reveals absence of vitiligo or acanthosis nigricans. Abdominal exam reveals Soft NT/ND with NA BS. No organomegaly present. Neck Other: . Extrem Other: Visual exam of foot performed. No ulcerations or open lesions. No onchomycosis, no callouses.Pulses 2 + distally Sensation intact to monofilament exam. Vibrat ory sensation sensed is intact with 128 Hz tuning fork Results Reviewed Results Reviewed: Laboratory Last Values Glucose (Clinic) 332 mg/dL (60-115) H 03/01/25 11:12 Assessment & Plan Assessment & Plan (1) Diabetes type 2, uncontrolled: Onset Date: Unknown Code(s): E11.65 - Type 2 diabetes mellitus with hyperglycemia Category: Medical Qualifiers: Glycemic state: with hyperglycemia Qualified Code(s): E11.65 - Type 2 diabetes mellitus with hyperglycemia Plan: This is a 48-year-old female with history of type 2 diabetes being treated with U-500 insulin , Lantus and metformin with poor glycemic control and known microvascular complications namely retinopathy. Plan is to have the patient reinitiate the sensor Holley 3 with reader. We will also have patient use an over patch to prevent falling off. We will increase Mounjaro to 5 mg Q weekly as patient was intolerant to other G LP -1including Ozempic . Went over side effects of Mounjaro including but not limited to nausea, vomiting and rare risk of pancreatitis Once again, stressed the importance of using the sensor particularly with the U-500 insulin and risk for hypoglycemia as well as to better glycemic control . Went over relationship poor glycemic control to development and progression complication. Could not make any changes to her insulin regimen because of lack of data today. We will have her follow up with the clinical systems educator in about 3-4 weeks' time. Lipid management as per her primary care provider who recently placed her on a statin Medications: New tirzepatide (Mounjaro) 5 mg (0.5 mL) subcut QWEEK 2 mL 5RF Changed From pen needle, diabetic (BD Shakila 2nd Gen Pen Needle) Twice a day 100 ea 4RF E11.65 - Type 2 diabetes mellitus with hyperglycemia To pen needle, diabetic Twice a day 100 ea 4RF E11.65 - Type 2 diabetes mellitus with hyperglycemia Refilled FreeStyle Holley 3 Plus Sensor (blood-glucose sensor) every 15 days 2 ea 11RF NS Discontinued Mounjaro (tirzepatide) for 4 weeks Discontinued Reason: Doctor's Order 2.5 mg (0.5 mL) subcut QWEEK 2 mL 5RF NS Coding Level of Care Code Est Pt Level 4 (93736) Diagnoses Uncontrolled type 2 diabetes mellitus with hyperglycemia E11.65 Glycemic state: with hyperglycemia
[2025-03-01 11:08] VITALS: BP 106/64; PULSE 89; O2SAT 97; BMI 43.7
[2025-03-01 11:17] LABS: Glucose, Whole Blood 332 mg/dL (60-115)
== END 2025-03-01 11:34 | disposition home or self-care (01) ==
LOC: HO.ENCR 11:02
PROVIDERS: PCP Internal Medicine; Visit Provider Internal Medicine Endocrinology, Diabetes & Metabolism
DX: E11.65 Type 2 diabetes mellitus with hyperglycemia (principal)
CPT/HCPCS: 99214

== ENCOUNTER → 2025-03-01 11:01 | Outpatient (BNVA) | payer OTHER, SELFPAY | PROVIDERS: PCP Internal Medicine; Visit Provider Internal Medicine Endocrinology, Diabetes & Metabolism | DX: E11.65 Type 2 diabetes mellitus with hyperglycemia (principal) | CPT/HCPCS: 82947; 99212 ==

== ENCOUNTER 2025-04-18 10:08 | Outpatient (AMB) | payer OTHER, SELFPAY ==
--- NOTE | 2025-04-18 10:21 | MHC.PC.OV ---
Vital Signs 04/18/25 10:22 Height 5 ft 7.8 in Weight 285 lb 8 oz BMI 43.7 BP 144/64 H Blood Pressure Location Rt brachial Position Sitting Pulse 64 Pulse Source Pulse Oximeter Temp 97.1 F Temp Source Temporal Artery Scan Pulse Oximetry (%) 94 Oxygen Delivery Method Room Air Intake Visit Reasons: dm Intake Note: Patient is here to follow up on DM. Food Trades Assistants Required: No Bridal Stylist Sales Consultant: Not Required per policy Accompanied by: Self / Same As Patient Allergies dulaglutide (Trulicity) Adverse Reaction (Intermediate, Verified 04/18/25 10:36) nausea,vomiting,diarrhea Medication List - Last Reconciled 04/18/25 by Marge Ordoñez MD amlodipine 10 mg PO DAILY 90 days aspirin 81 mg PO DAILY 90 days atorvastatin (Lipitor) 40 mg PO BEDTIME 90 days betamethasone dipropionate 0.05% 1 appl topical DAILY PRN 2 weeks blood sugar diagnostic (FreeStyle Lite Strips) DIRECTED TEST 4 TIMES A DAY *INSURANCE ONLY ALLOW 100 FOR 30 DAYS* blood-glucose meter (FreeStyle [place] Lite kit) As directed cholecalciferol (vitamin D3) 50 mcg PO DAILY 90 days commode As directed cyclobenzaprine 10 mg PO BEDTIME diazepam (Valium) 4 mg (2 x 2 mg) PO BEDTIME PRN 1 day diclofenac potassium 50 mg PO TID PRN 7 days FreeStyle Holley 3 Plus Sensor (blood-glucose sensor) every 15 days NS FreeStyle Holley 3 [place] (blood-glucose,bass string winder,cont) As directed for use with sensor NS glucagon 3 mg/actuation 3 mg intranasal ONCE PRN glucose (Dex4 Glucose) 16 grams (4 x 4 gram) PO Q15M PRN hydralazine 10 mg PO TID 90 days ibuprofen 600 mg PO TID PRN insulin glargine (Lantus Solostar U-100 Insulin) 20 units (0.2 mL) subcut QPM 90 days insulin regular hum U-500 conc (Humulin R U-500 (Conc) Insulin Kwikpen) 60 units before breakfast and 60 units before dinner subcut .Twice a day; 30 days lancets Use 1 lancet three times a day lancets (FreeStyle Lancets) As directed test 4 times a day lisinopril 40 mg PO DAILY metoprolol tartrate 25 mg PO BID 90 days pen needle, diabetic (1st Tier Unifine Pentips) As directed pen needle, diabetic Twice a day polyethylene glycol 3350 (Miralax) 238 grams PO ONCE PRN 1 day pregabalin 150 mg PO BID 30 days tirzepatide (Mounjaro) 5 mg (0.5 mL) subcut QWEEK topiramate 50 mg PO BEDTIME 90 days tramadol 50 mg PO Q8H PRN 30 days walker (Ultra-Light Rollator misc) As directed Tobacco use date assessed: 04/18/25 Dental Screening Dental Screen Date: 12/04/24 HPI HPI Comments History of Present Illness Details The patient is a 49-year-old female presenting with management of hypertension, type 2 diabetes mellitus, hyperlipidemia, and ulnar neuropathy. Hypertension has been noted with borderline elevated blood pressure readings, and the patient reports non-adherence to antihypertensive medications. The patient is currently prescribed lisinopril and metoprolol for blood pressure management. Type 2 diabetes mellitus is being monitored with an A1c of 7.8, indicating suboptimal control, though there is noted improvement. The patient is on insulin therapy, including Lantus and regular insulin, administered multiple times daily. Hyperlipidemia is severe, with triglyceride levels exceeding 500 mg/dL and total cholesterol at 343 mg/dL. The patient is currently on atorvastatin but not on fenofibrate, which is being considered due to the risk of pancreatitis. Ulnar neuropathy is causing significant discomfort, with a pinched nerve diagnosed in the right hand, leading to numbness and pain. The patient has been advised to use a right cubital tunnel elbow brace to alleviate symptoms. Obesity is a concern, with a BMI of 43, and weight management strategies are being discussed, including potential referral to a weight management program. [facility] Medical History (Updated 04/18/25 @ 10:50 by Marge Ordoñez MD) Neuropathy Morbid obesity Mild recurrent major depression Right leg pain STAN (generalized anxiety disorder) Venous insufficiency of left lower extremity GERD (gastroesophageal reflux disease) Migraine headache Vitamin D deficiency Dyslipidemia Hypertension group home (current) use of insulin Diabetes type 2, uncontrolled (Unknown) Surgical History Hx of tubal ligation Hx of section Hx of arthroscopy of left knee Hx of cholecystectomy Family History Father COPD (chronic obstructive pulmonary disease) Mother Breast cancer Social History Housing: Apartment Alcohol intake: never Patient Tobacco Use Status: Never used Tobacco e-Cigarette/Vaping Use: Never Used Second Hand Smoke Exposure: No service: No Current occupational status: employed Current occupational exposures/hazards: No Cognitive needs: No Hearing needs: No Vision needs: No Female Reproductive History Menstrual Age of Menarche: 11 Questionnaire Thrive Questionnaire Date Thrive assessed: 12/04/24 I am a: Patient What is your living situation today?: I have a steady place to live Within the past 12 months, did the food you bought not last and you didn't have the money to get more?: Never true Within the past 12 months, did you worry whether your food would run out before you got money to buy more?: Never true Do you have trouble paying for medicines?: No Do you have trouble getting transportation to medical appointments?: No Do you have trouble paying your heating and electricity bill?: No Do you have trouble taking care of your child, family member or friend?: No Do you have trouble with day-to-day activities such as bathing, preparing meals, shopping, managing finances, etc.?: No Are you currently unemployed and looking for a job?: No Are you interested in more education?: No Please select the resources that you would like help with: None Currently or been in a relationship where the following occur: I choose not to answer THRIVE Score: 0 STAN-7 AMB Questionnaire STAN-7 Date STAN - 7 assessed: 12/04/24 Source: Developed by Drs. Nikolas Tellez, Amanda Wallace, Tex Medina and colleagues, with an educational ronnell from [employer]. Review of Systems Const All systems reviewed & are unremarkable except as noted in HPI and below Card Denies chest pain at rest, Denies chest pain with activity, Denies edema, Denies irregular heart rhythm, Denies claudication, Denies orthopnea, Denies paroxysmal nocturnal dyspnea and Denies slow heart rate Physical exam (Primary Care) Vital Signs: Last Vital Signs Temp 97.1 F 04/18/25 10:22 Pulse 64 04/18/25 10:22 BP 144/64 H 04/18/25 10:22 Pulse Ox 94 04/18/25 10:22 Oxygen Delivery Method Room Air 04/18/25 10:22 BMI result Body Mass Index 43.7 BMI Assessment/Plan discussion: High BMI High, discussed plan: lifestyle, weight reduction, dietary and physical activity Tobacco/Smoking Status: Tobacco use Status Tobacco use date assessed 04/18/25 04/18/25 10:30 Patient Tobacco Use Status Never used Tobacco 04/18/25 10:30 e-Cigarette/Vaping Use Never Used 04/18/25 10:30 Thrive Assessment: Date of Thrive Assessment Date Thrive assessed 12/04/24 04/18/25 10:30 Currently or been in a relationship where the following occur: I choose not to answer Resp Effort & Inspection: normal respiratory effort Auscultation: clear to auscultation bilaterally Cardio Jugular venous distension: no JVD Rate: regular rate Rhythm: regular rhythm Heart sounds: S1 normal heart sound present and S2 normal heart sound present Extrem General: Yes full ROM Results AMB Hemoglobin A1c AMB Hemoglobin A1c 7.8 % Last Edit by CRISTOBAL Cardona on 04/18/25 10:32 Results Reviewed Results Reviewed: Laboratory Last Values Hgb A1c (Clinic) 7.8 % (4.0-6.0) H 04/18/25 10:20 Coding Level of Care Code Est Pt Level 4 (68732) Complex EM visit Add On G2211 Diagnoses Morbid obesity with BMI of 40.0-44.9, adult E66.01; Z68.41 Mild recurrent major depression F33.0 Essential hypertension I10 Hypertension type: essential hypertension Dyslipidemia E78.5 Diabetes mellitus E11.9 Neuropathy of right ulnar nerve at wrist G56.21 Time Spent (min) 21 Assessment & Plan Assessment & Plan (1) Morbid obesity with BMI of 40.0-44.9, adult: Code(s): E66.01 - Morbid (severe) obesity due to excess calories; Z68.41 - Body mass index [BMI] 40.0-44.9, adult Category: Medical (2) Mild recurrent major depression: Code(s): F33.0 - Major depressive disorder, recurrent, mild Category: Medical (3) Hypertension: Code(s): I10 - Essential (primary) hypertension Category: Medical Qualifiers: Hypertension type: essential hypertension Qualified Code(s): I10 - Essential (primary) hypertension (4) Dyslipidemia: Code(s): E78.5 - Hyperlipidemia, unspecified Category: Medical (5) Diabetes mellitus: Code(s): E11.9 - Type 2 diabetes mellitus without complications Category: Medical (6) Neuropathy of right ulnar nerve at wrist: Code(s): G56.21 - Lesion of ulnar nerve, right upper limb Category: Medical Plan Plan Patient was informed and verbally consented to the use of an ambient scribe for clinic note documentation during this visit. 1. Hypertension The patient is advised to adhere to prescribed antihypertensive medications, including lisinopril and metoprolol, to manage blood pressure effectively. 2. Type 2 Diabetes Mellitus The patient is encouraged to continue insulin therapy with Lantus and regular insulin to improve glycemic control, with a target to lower A1c levels. 3. Hyperlipidemia The patient is advised to start fenofibrate in addition to atorvastatin to reduce triglyceride levels and mitigate the risk of pancreatitis. 4. Ulnar Neuropathy The patient is recommended to use a right cubital tunnel elbow brace to alleviate symptoms of ulnar neuropathy. 5. Obesity The patient is referred to a weight management program to address obesity, with a focus on dietary modifications and physical activity. Orders: Orders Vitamin D 25-OH Total 4 Months E55.9 - Vitamin D deficiency, unspecified Comprehensive Jermyn. Panel Fast 4 Months I10 - Essential (primary) hypertension AMB Hemoglobin A1c Today E11.65 - Type 2 diabetes mellitus with hyperglycemia, E11.9 - Type 2 diabetes mellitus without complications, Z79.4 - group home (current) use of insulin Lipid Panel 4 Months E78.5 - Hyperlipidemia, unspecified Microalbumin, Random (w Creat) 4 Months R80.9 - Proteinuria, unspecified Vitamin B12 and Folate 4 Months E53.8 - Deficiency of other specified B group vitamins Referrals Medical Weight Management Referral E66.01 - Morbid (severe) obesity due to excess calories, Z68.41 - Body mass index [BMI] 40.0-44.9, adult Medications: New fenofibrate 54 mg PO DAILY 90 tabs 1RF 90 days [right cubital tunnel elbow brace] As directed 1 ea 0RF G56.21 - Lesion of ulnar nerve, right upper limb Refilled cyclobenzaprine 10 mg PO BEDTIME 14 tabs 0RF atorvastatin (Lipitor) 40 mg PO BEDTIME 90 tabs 1RF 90 days pregabalin 150 mg PO BID 60 caps 0RF 30 days
[2025-04-18 10:22] VITALS: BP 144/64; PULSE 64; TEMP 36.2; O2SAT 94; BMI 43.7
== END 2025-04-18 10:54 | disposition home or self-care (01) ==
LOC: HO.HMCH 10:09
PROVIDERS: PCP Internal Medicine; Visit Provider Internal Medicine
DX: E11.69 Type 2 diabetes mellitus with other specified complication (principal); E66.01 Morbid (severe) obesity due to excess calories; Z68.41 Body mass index [BMI] 40.0-44.9, adult; E11.65 Type 2 diabetes mellitus with hyperglycemia; Z79.4 Long term (current) use of insulin; F33.0 Major depressive disorder, recurrent, mild; I10 Essential (primary) hypertension; E78.5 Hyperlipidemia, unspecified; G56.21 Lesion of ulnar nerve, right upper limb

== ENCOUNTER → 2025-04-18 10:08 | Outpatient (BNVA) | payer OTHER, SELFPAY | PROVIDERS: PCP Internal Medicine; Visit Provider Internal Medicine | DX: I10 Essential (primary) hypertension (principal); E78.5 Hyperlipidemia, unspecified; E11.40 Type 2 diabetes mellitus with diabetic neuropathy, unspecified; F33.0 Major depressive disorder, recurrent, mild; G56.21 Lesion of ulnar nerve, right upper limb; E66.01 Morbid (severe) obesity due to excess calories; Z68.41 Body mass index [BMI] 40.0-44.9, adult | CPT/HCPCS: 83036; 99212 ==

== ENCOUNTER 2025-05-03 10:13 | Outpatient (AMB) | payer OTHER, SELFPAY ==
[2025-05-03 10:56] VITALS: BP 128/74; PULSE 72; O2SAT 97; BMI 44.2
--- NOTE | 2025-05-03 10:56 | A.OFFVIS_ITS ---
Vital Signs 05/03/25 10:56 Height 5 ft 7.8 in Weight 289 lb 3.944 oz BMI 44.2 BP 128/74 Blood Pressure Location Lt brachial Position Sitting Pulse 72 Pulse Source Pulse Oximeter Pulse Oximetry (%) 97 Oxygen Delivery Method Room Air Intake Visit Reasons: T2DM Intake Note: Patient present today to follow up on Type 2 Diabetes Mellitus. 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 Random Glucose: 134 mg/dl HgA1C: 7.8% 04/18/2025 Certified Nursing Attendant Required: No Accompanied by: Self / Same As Patient Allergies dulaglutide (Trulicity) Adverse Reaction (Intermediate, Verified 05/03/25 10:57) nausea,vomiting,diarrhea Medication List - Last Reconciled 05/03/25 by Nikolas Calero MD amlodipine 10 mg PO DAILY 90 days aspirin 81 mg PO DAILY 90 days atorvastatin (Lipitor) 40 mg PO BEDTIME 90 days betamethasone dipropionate 0.05% 1 appl topical DAILY PRN 2 weeks blood sugar diagnostic (FreeStyle Lite Strips) DIRECTED TEST 4 TIMES A DAY *INSURANCE ONLY ALLOW 100 FOR 30 DAYS* blood-glucose meter (FreeStyle Salt Flat Lite kit) As directed cholecalciferol (vitamin D3) 50 mcg PO DAILY 90 days commode As directed cyclobenzaprine 10 mg PO BEDTIME diazepam (Valium) 4 mg (2 x 2 mg) PO BEDTIME PRN 1 day diclofenac potassium 50 mg PO TID PRN 7 days fenofibrate 54 mg PO DAILY 90 days FreeStyle [place] 3 Plus Sensor (blood-glucose sensor) every 15 days NS FreeStyle [place] 3 [place] (blood-glucose,jet aircraft servicer,cont) As directed for use with sensor NS glucagon 3 mg/actuation 3 mg intranasal ONCE PRN glucose (Dex4 Glucose) 16 grams (4 x 4 gram) PO Q15M PRN hydralazine 10 mg PO TID 90 days ibuprofen 600 mg PO TID PRN insulin glargine (Lantus Solostar U-100 Insulin) 20 units (0.2 mL) subcut QPM 90 days insulin regular hum U-500 conc (Humulin R U-500 (Conc) Insulin Kwikpen) 60 units before breakfast and 60 units before dinner subcut .Twice a day; 30 days lancets Use 1 lancet three times a day lancets (FreeStyle Lancets) As directed test 4 times a day lisinopril 40 mg PO DAILY metoprolol tartrate 25 mg PO BID 90 days pen needle, diabetic (1st Tier Unifine Pentips) As directed pen needle, diabetic Twice a day polyethylene glycol 3350 (Miralax) 238 grams PO ONCE PRN 1 day pregabalin 150 mg PO BID 30 days [right cubital tunnel elbow brace As directed] tirzepatide (Mounjaro) 5 mg (0.5 mL) subcut QWEEK topiramate 50 mg PO BEDTIME 90 days tramadol 50 mg PO Q8H PRN 30 days walker (Ultra-Light Rollator misc) As directed HPI Comments Details: 49-year-old female, here today for follow-up of insulin resistant type 2 diabetes. Type 2 diabetes diagnosed approximate 2009 She is intolerant to Ozempic which was discontinued earlier this year when she was hospitalized with abd pain Tried Afrezza in the past intolerance, metformin: Current diabetes medications: Humulin U500 65 before breakfast Humulin U500 65 before supper Lantus 20 units at HS Mounjaro 5 mg Qwkly [place] download shows she is using the sensor 96% of the time. Average glucose is 187 with G mi of 7.8% and variability 32.4%. 52% range with 32% hyper glycemia and 16% very hyperglycemic and no hypoglycemia pattern shows declining blood sugars overnight with increase in blood sugar post-lunch and post-dinner Has hypoglycemia in AM 2-3 X/ wk Has retinopathy: Last visit 2 wks a go no need for photocoagulation or VEGF therapy Has nephropathy; 08/03/2024 eGFR>60 10/18/2023 microalbumin 110 on vern-I Has neuropathy: on lyrica 150mg bid has hands feet HLD: No recent check she has order to obtain through PCP Denies history of CAD Denies symptoms of chest pain, dyspnea or claudication. Diet: Last seen by nutrition 03/2024 Weight: DM education: Last seen 11/2023 [facility] Medical History Neuropathy Morbid obesity Mild recurrent major depression Right leg pain STAN (generalized anxiety disorder) Venous insufficiency of left lower extremity GERD (gastroesophageal reflux disease) Migraine headache Vitamin D deficiency Dyslipidemia Hypertension senior care (current) use of insulin Diabetes type 2, uncontrolled (Unknown) Surgical History Hx of tubal ligation Hx of section Hx of arthroscopy of left knee Hx of cholecystectomy Family History Father COPD (chronic obstructive pulmonary disease) Mother Breast cancer Social History Housing: Apartment Alcohol intake: never Patient Tobacco Use Status: Never used Tobacco e-Cigarette/Vaping Use: Never Used Second Hand Smoke Exposure: No service: No Current occupational status: employed Current occupational exposures/hazards: No Cognitive needs: No Hearing needs: No Vision needs: No Female Reproductive History Menstrual Age of Menarche: 11 Physical Exam Vital Signs: BMI result Body Mass Index 44.2 Assessment & Plan Assessment & Plan (1) Diabetes type 2, uncontrolled: Onset Date: Unknown Code(s): E11.65 - Type 2 diabetes mellitus with hyperglycemia Category: Medical Qualifiers: Glycemic state: with hyperglycemia Qualified Code(s): E11.65 - Type 2 diabetes mellitus with hyperglycemia Plan: This is a 49-year-old female with history of type 2 diabetes being treated with U-500 insulin , Lantus and metformin and Mounjaro with fair but improving glycemic control and known microvascular complications namely retinopathy. Plan is to stopped Lantus. We will initiate U 500 30 units before lunch and will increase the Mounjaro to 7.5 mg Q weekly. We will have patient follow up with CDE in 6 weeks and with myself in 3 months Medications: New Mounjaro (tirzepatide) 7.5 mg (0.5 mL) subcut QWEEK 2 mL 5RF NS Changed From insulin regular hum U-500 conc (Humulin R U-500 (Conc) Insulin Kwikpen) 60 units before breakfast and 60 units before dinner subcut .Twice a day; 30 days 12 mL 5RF E11.65 - Type 2 diabetes mellitus with hyperglycemia To insulin regular hum U-500 conc (Humulin R U-500 (Conc) Insulin Kwikpen) 65 units before breakfast, 30 units before lunch and 60 units before dinner subcut .3 X/day a day; 15 mL 5RF 30 days E11.65 - Type 2 diabetes mellitus with hyperglycemia Discontinued insulin glargine (Lantus Solostar U-100 Insulin) Discontinued Reason: Doctor's Order 20 units (0.2 mL) subcut QPM 90 days 18 mL 1RF tirzepatide (Mounjaro) Discontinued Reason: Doctor's Order 5 mg (0.5 mL) subcut QWEEK 2 mL 5RF Coding Level of Care Code Est Pt Level 4 (34257) Complex EM visit Add On G2211 Diagnoses Uncontrolled type 2 diabetes mellitus with hyperglycemia E11.65 Glycemic state: with hyperglycemia
[2025-05-03 11:05] LABS: Glucose, Whole Blood 134 mg/dL (60-115)
== END 2025-05-03 11:15 | disposition home or self-care (01) ==
LOC: HO.ENCR 10:14
PROVIDERS: PCP Internal Medicine; Visit Provider Internal Medicine Endocrinology, Diabetes & Metabolism
DX: E11.65 Type 2 diabetes mellitus with hyperglycemia (principal)
CPT/HCPCS: 99214

== ENCOUNTER → 2025-05-03 10:13 | Outpatient (BNVA) | payer OTHER, SELFPAY | PROVIDERS: PCP Internal Medicine; Visit Provider Internal Medicine Endocrinology, Diabetes & Metabolism | DX: E11.65 Type 2 diabetes mellitus with hyperglycemia (principal); Z79.4 Long term (current) use of insulin; E11.319 Type 2 diabetes mellitus with unspecified diabetic retinopathy without macular edema; E11.21 Type 2 diabetes mellitus with diabetic nephropathy; E11.40 Type 2 diabetes mellitus with diabetic neuropathy, unspecified | CPT/HCPCS: 82947; 99212 ==